=== PATIENT | female | born 1950 | race Caucasian/White ===

== ENCOUNTER → 2019-07-20 13:48 | Outpatient (CLI) | payer MEDICARE, SELFPAY ==
--- NOTE | ~2019-07-20 | MM_ITS ---
EXAMINATION: MM screening kimmy BI w heidi HISTORY: Screening mammogram TECHNIQUE: Craniocaudal and mediolateral oblique 3-D tomosynthesis images were obtained and synthetic 2-D images were generated. CAD analysis was submitted and interpreted. COMPARISON: Comparison to multiple prior studies sequentially, with oldest reviewed study dated 12/03. BREAST PARENCHYMAL COMPOSITION: There are scattered areas of fibroglandular density. FINDINGS: There is no evidence of suspicious mass, calcification, or architectural distortion to sugg est malignancy in either breast. There has been no suspicious interval change. IMPRESSION: 1. No mammographic evidence of malignancy. 2. Recommend routine screening mammography in one year. BI-RADS Category 1: Negative Reviewed, dictated and finalized at location A. AGE SUPERVISOR
== END ==
PROVIDERS: PCP Family Medicine; Visit Provider Family Medicine
DX: Z12.31 Encounter for screening mammogram for malignant neoplasm of breast (principal)
CPT/HCPCS: 77063; 77067

== ENCOUNTER → 2020-12-01 16:22 | Outpatient (CLI) | payer MEDICARE, SELFPAY ==
--- NOTE | ~2020-12-01 | MM_ITS ---
EXAMINATION: MM screening kimmy BI w heidi HISTORY: Screening TECHNIQUE: Craniocaudal and mediolateral oblique 3-D tomosynthesis images were obtained and synthetic 2-D images were generated. CAD analysis was submitted and interpreted. COMPARISON: Comparison to multiple prior studies sequentially, with oldest reviewed study dated 02/02. BREAST PARENCHYMAL COMPOSITION: There are scattered areas of fibroglandular density. FINDINGS: There is no evidence of suspicious mass, calcification, or architectural distortion to sugg est malignancy in either breast. There has been no suspicious interval change. IMPRESSION: 1. No mammographic evidence of malignancy. 2. Recommend routine screening mammography in one year. BI-RADS Category 1: Negative Reviewed, dictated and finalized at location A.
== END ==
PROVIDERS: PCP Nurse Practitioner Family; Visit Provider Nurse Practitioner Family
DX: Z12.31 Encounter for screening mammogram for malignant neoplasm of breast (principal)
CPT/HCPCS: 77063; 77067

== ENCOUNTER 2021-05-02 14:55 | Outpatient (CLI) | payer MEDICARE, SELFPAY ==
--- NOTE | ~2021-05-02 | CT_ITS ---
EXAMINATION: CT abdomen pelvis wo con EXAM DATE: 05/02/2021 15:39 INDICATION: Right flank pain. Symptoms 2 weeks. TECHNIQUE: Spiral CT of the abdomen and pelvis was performed without contrast. Axial, coronal and sag ittal images were reviewed. The dose-length product (DLP) for this examination was 1039.43 mGy-cm. The exposure was tailored according to patient size (auto mA exposure control), and iterative reconst ruction (ASIR) was used as additional dose reduction technique. There is no prior study for comparis on. FINDINGS: There is 12 mm stone in the lower pole of the left kidney, additional punctate left nephrol ithiasis. No right nephrolithiasis. No hydronephrosis. The uterus is anteverted and morphologically normal. The bladder is unremarkable. The liver, spleen, adrenal glands and pancreas are unremarkab le. The gallbladder is contracted but otherwise unremarkable. There is no retroperitoneal or pelvic lymphadenopathy. There is mild scattered arteriosclerotic disease. There are scattered colonic diverticula. There is underdistention of the hepatic flexure of the colon probably causing mild prominence of colonic wall and some diverticula in the area. No definite adjac ent inflammation. The appendix is normal. The stomach and small bowel are unremarkable. There is ex pected amount of colonic stool. No free intraperitoneal gas. The heart is normal in size. There are no pericardial or pleural effusions. The lung bases are unremarkable. There are no osteoblastic or osteolytic lesions identified. IMPRESSION: 1. Scattered colonic diverticula with mildly prominent transverse colonic wall, can't exclude mild c olitis or acute uncomplicated diverticulitis. 2. Large left nephrolithiasis. No hydronephrosis. Reviewed, dictated and finalized at location A. NICAL AIDE IMPRESSION: 1. Scattered colonic diverticula with mildly prominent transverse colonic wall , can't exclude mild colitis or acute uncomplicated diverticulitis. 2. Large left nephrolithiasis. No hydronephrosis.
== END 2021-05-02 14:56 | disposition home or self-care (01) ==
LOC: ANHIMG 15:00
PROVIDERS: PCP Family Medicine; Visit Provider Nurse Practitioner Family
DX: R10.9 Unspecified abdominal pain (principal); K57.30 Diverticulosis of large intestine without perforation or abscess without bleeding
CPT/HCPCS: 74176

== ENCOUNTER 2021-06-05 07:33 | Inpatient (IN) | payer MEDICARE, SELFPAY ==
[2021-06-05] VITALS (16 sets, daily range): BP systolic 80–166; BP diastolic 45–97; PULSE 62–138; RESP 16–22; TEMP 36.3–37.3; O2SAT 91–99; BMI 47.9
--- NOTE | ~2021-06-05 | US_ITS ---
EXAMINATION: US abdomen complete EXAM DATE: 06/08/2021 11:37 INDICATION: Thrombocytopenia. Check for hepatosplenomegaly. TECHNIQUE: Multiple grayscale and Doppler images of the complete abdomen were obtained (by a technolo gist who performed the scan) and subsequently reviewed. There is no prior study for comparison. FINDINGS: The abdominal aorta is normal in caliber. Visualized portion IVC is patent. The pancreatic head a nd body are normal in appearance. The pancreatic tail is not visualized. Mildly echogenic liver parenchyma, hepatic steatosis. There are no focal liver lesions identified. There is no evidence of intrahepatic biliary duct dilation. Portal venous flow was seen in the hepa topedal, normal direction and has normal Doppler waveform. Common bile duct measures 6 mm, which is normal. The gallbladder wall is normal in thickness, with ex pected amount of distention. No sonographic evidence of pericholecystic fluid. There is no cholelit hiases. Technologist performing exam reports patient did not demonstrate sonographic Rock's sign. Please note that this sign is less reliable in patients who have received pain medication. Right kidney: There is normal contour and echogenicity. It measures 10.7 x 5.0 x 5.8 centimeters. There are no focal renal lesions identified. There is no hydronephrosis. Left kidney: There is normal contour and echogenicity. It measures 10.3 x 5.7 x 5.1 centimeters. Th ere is 1.4 cm cyst. There is no hydronephrosis. The spleen measures 9.2 x 3.8 x 4.2 centimeters and is morphologically normal. IMPRESSION: 1. Normal liver, spleen size. 2. Hepatic steatosis. Reviewed, dictated and finalized at location A. CARE ADMINISTRATOR
--- NOTE | ~2021-06-05 | CT_ITS ---
EXAMINATION: CT facial & cervical spine wo DATE: 06/05/2021 08:11 INDICATION: Head injury. TECHNIQUE: Computed tomography (CT) of the maxillofacial region and cervical spine was performed with out intravenous contrast. Automated exposure control and iterative reconstruction technique were empl oyed. The dose-length product was 425.10 mGy-cm. COMPARISON: None FINDINGS: MAXILLOFACIAL CT: There are fractures of the nasal bones, right nasal process of maxilla, and nasal septum. There is mu cosal thickening and fluid in the paranasal sinuses and nasal cavity. There are likely changes of ocu lar lens replacement surgeries. There is frontal scalp soft tissue swelling. There is soft tissue swe lling of the nose. CERVICAL SPINE CT: There is 12 degrees levoscoliosis of cervical spine. Vertebral body heights are normal. There is mild ly decreased disc height at C4-C5, C5-C6, and C6-C7. 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 The following disc levels are specifically discussed: C2-C3: There is mild bilateral uncovertebral joint osteoarthritis. There is moderate right and mild l eft facet joint osteoarthritis. There is no neural foraminal stenosis. There is no central canal sten osis. C3-C4: There is mild bilateral uncovertebral joint osteoarthritis. There is severe right and moderate left facet joint osteoarthritis. There is no neural foraminal stenosis. There is no central canal st enosis. C4-C5: There is mild bilateral uncovertebral joint osteoarthritis. There is severe bilateral facet marcus int osteoarthritis. There is no neural foraminal stenosis. There is no central canal stenosis. C5-C6: There is mild bilateral uncovertebral joint osteoarthritis. There is severe right and moderate left facet joint osteoarthritis. There is no neural foraminal stenosis. There is mild central canal stenosis. C6-C7: There is mild bilateral uncovertebral joint osteoarthritis. There is severe bilateral facet marcus int osteoarthritis. There is no neural foraminal stenosis. There is mild central canal stenosis. C7-T1: There is no uncovertebral joint osteoarthritis. There is severe bilateral facet joint osteoart hritis. There is mild bilateral neural foraminal stenosis. There is mild central canal stenosis. IMPRESSION: 1. Acute fractures of the nasal bones, right nasal process of maxilla, and nasal septum. 2. Moderate cervical spondylosis. 3. Cervical levoscoliosis. Reviewed, dictated and finalized at location D. ERY RN IMPRESSION: 1. Acute fractures of the nasal bones, right nasal process of maxilla, and nasa l septum. 2. Moderate cervical spondylosis. 3. Cervical levoscoliosis.
--- NOTE | ~2021-06-05 | CT_ITS ---
EXAMINATION: CT brain wo con DATE: 06/05/2021 08:11 INDICATION: Head injury. TECHNIQUE: Computed tomography (CT) of the head was performed without intravenous contrast. The mA wa s adjusted according to patient size. Iterative reconstruction technique was employed. The dose-lengt h product was 681.00 mGy-cm. COMPARISON: None FINDINGS: There is a small old infarct in left frontal lobe. There is no intracranial hemorrhage, acu te infarction, or abnormal intracranial mass lesion. The ventricles are normal in size. There are fra ctures of the nasal bones and nasal septum. There is mucosal thickening and fluid in the paranasal si nuses and nasal cavity. There is soft tissue swelling of the nose. There are likely changes of ocular lens replacement surgeries. The mastoid air cells are normal. IMPRESSION: 1. 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 2. Acute fractures involving the nasal bones and nasal septum. Reviewed, dictated and finalized at location D. ING INFORMATION SYSTEMS COORDINATOR
--- NOTE | 2021-06-05 07:50 | ED.FALL ---
HPI - Fall General Chief Complaint: Fall Stated Complaint: fall Time Seen by Provider: 06/05/21 07:48 Source: patient Mode of arrival: EMS Limitations: no limitations History of Present Illness HPI Narrative: Patient is a 71-year-old female complaining of facial pain, nosebleeding after she fell face first when she tripped while walking her dog. Patient denies any loss of consciousness. Patient denies any head, neck, chest, back, abdomen, pelvis, hip or any extremity pain/injury. Patient states that she was able to stand up and ambulate after the fall. Patient states that she has a history of low platelets and last time it was checked it was 12 , currently being worked up by her senior quantity surveyor oncologist regarding the cause of her thrombocytopenia. Related Data Home Medications Medication Instructions Recorded Confirmed Fish Oil 06/05/21 06/05/21 calcium phos,dibas-vitamin D3 tablet PO 06/05/21 [Vitamin D (with calcium)] multivitamin with minerals 1 tablet PO DAILY 06/05/21 06/05/21 [Hair,Skin and Nails] vitamin B complex [Vitamin B-100] 1 tablet PO DAILY 06/05/21 06/05/21 Allergies Allergy/AdvReac Type Severity Reaction Status Date / Time No Known Allergies Allergy Unknown NONE Verified 06/05/21 07:42 Review of Systems Review of Systems: All systems reviewed & are unremarkable except as noted in HPI and below Constitutional: Constitutional: Denies body ache(s), Denies chills, Denies excessive sweating, Denies fatigue, Denies fever(s), Denies headache(s), Denies lethargy, Denies malaise, Denies weakness and Denies weight loss Eyes: Eyes: Denies blurry vision, Denies change in vision and Denies loss of vision ENT: Denies dizziness, Denies ear discharge, Denies headache(s), Denies lip swelling, Denies nasal congestion, Denies neck pain, Denies throat swelling and Denies tongue swelling Cardiovascular: Cardiovascular: Denies chest pain, Denies chest pain at rest, Denies chest pain with activity, Denies diaphoresis, Denies rapid heart rate, Denies edema, Denies irregular heart rhythm, Denies lightheadedness, Denies palpitations, Denies dyspnea and Denies dyspnea on exertion Respiratory: Respiratory: Denies chest congestion, Denies cough, Denies hemoptysis, Denies dyspnea and Denies dyspnea on exertion Gastrointestinal: Gastrointestinal: Denies abdominal pain, Denies melena, Denies hematochezia, Denies diarrhea, Denies nausea, Denies vomiting and Denies hematemesis Musculoskeletal: Musculoskeletal: Denies abnormal gait, Denies deformity, Denies joint swelling, Denies limited range of motion, Denies neck pain and Denies numbness Neurologic: Denies Abnormal speech present, Denies abnormal gait, Denies confusion, Denies dizziness, Denies headache(s), Denies focal weakness, Denies loss of vision, Denies numbness, Denies Other visual disturbances, Denies Sensory deficit (Neuro) and Denies weakness Psychiatric: Psychiatric: Denies confusion, Denies depression, Denies auditory hallucinations, Denies homicidal ideation and Denies suicidal ideation Endocrine: Endocrine: Denies cold intolerance, Denies excessive sweating, Denies fatigue, Denies heat intolerance and Denies palpitations Hematologic/Lymphatic: Hematologic/Lymphatic: Denies easy bleeding and Denies easy bruising Allergic/Immunologic: Allergic/Immunologic: Denies lip swelling, Denies throat swelling and Denies tongue swelling PMFSH Past Medical History Medical History (Updated 06/05/21 @ 11:19 by Alexey Cabrales MD) Hyperlipidemia Left ear impacted cerumen Skin cancer Vitamin D deficiency Family History Family History Sibling Diabetes mellitus Cerebrovascular accident Father Heart disease Social History Social History Smoking status: Never smoker Second hand tobacco smoke exposure: No Alcohol intake: never Substance use: never Subs
[2021-06-05 07:55] LABS: Basophils Percent Auto 0.4 % (0.2-1.2); Eosinophils Absolute Auto 0.2 K/mm3 (0-0.3); Eosinophils Percent Auto 2.2 % (0-4.4); Hematocrit 42.5 % (37.0-47.0); Hemoglobin 13.6 g/dL (12.0-15.0); Immature Granulocyte Absolute 0.02 K/mm3 (0.00-0.031); Immature Granulocyte Percent A 0.3 % (0-0.5); Immature Platelet Fraction Pct 21.8 % (0.9-11.2); Lymphocytes Absolute Auto 1.31 K/mm3 (0.9-3.2); Lymphocytes Percent Auto 16.6 % (18.3-44.2); Mean Corpuscular Hemoglobin 28.9 pg (26-34); Mean Corpuscular Volume 90.2 fl (80-100); Mean Platelet Volume 13.1 fl (7.4-10.4); Monocytes Absolute Auto 0.4 K/mm3 (0.1-0.6); Monocytes Percent Auto 5.6 % (2.6-8.5); Neutrophils Absolute Auto 5.9 K/mm3 (1.3-6.7); Neutrophils Percent Auto 74.9 % (45.5-73.1); Red Blood Count 4.71 M/mm3 (4.2-5.4); Red Cell Distribution Width 13.5 % (11.5-14.5); White Blood Count 7.9 K/mm3 (4.5-10.0)
[2021-06-05 08:03] LABS: Alanine Aminotransferase 25 U/L (4-35); Albumin Level 4.3 g/dL (3.5-5.1); Alkaline Phosphatase 70 U/L (38-126); Anion Gap 10 mmol/L (8-16); Aspartate Amino Transferase 31 U/L (14-36); Bilirubin,Total 0.5 mg/dL (0.2-1.3); Blood Urea Nitrogen 18 mg/dL (7-17); Calcium 9.3 mg/dL (8.4-10.2); Carbon Dioxide 27 mmol/L (22-30); Chloride 101 mmol/L (98-107); Estimated CRCL calculation 57 ml/min; Estimated Glomerular Filt Rate 55; Glucose 154 mg/dL (65-110); Potassium 4.3 mmol/L (3.4-5.0); Sodium 138 mmol/L (137-145)
[2021-06-05 08:12] LABS: INR 0.9; Partial Thromboplastin Time 27.9 SECONDS (22.3-36.8); Prothrombin Time 12.3 Seconds (11.1-14.7)
--- NOTE | 2021-06-05 08:13 | PC.NURSE ---
PT called out and stated Im hot . upon arrival to room patient noted to have copious amounts of blood coming from mouth. Suctioned mouth with approx 100 ml in canister. pt noted to have heart rate of 55 and diaphoretic., ERP called to bedside. PT to ct with this RN and monitor, tolerated well. IVF started pt in no distress at present.
[2021-06-05 08:15] LABS: Platelet Count Result 18 k/mm3 (150-375)
[2021-06-05] MEDS: TETANUS,DIPHTHERIA,AC PERTUSSIS ADULT (0.5 ML) BOOSTRIX IM (08:18)
[2021-06-05] MEDS: SODIUM CHLORIDE 0.9% IV 1,000 ML 999 ML IV CONT ×2 (08:19→10:54)
--- NOTE | 2021-06-05 08:24 | PC.NURSE ---
Dr. Dangelo (ENT) at bedside examining pt at this time
[2021-06-05] MEDS: HYDROmorphone HCL INJ (*CRX) 1 MG/ML SYR 0.5 MG IV PUSH (08:31)
[2021-06-05] MEDS: ONDANSETRON INJ 4 MG/2 ML VIAL IV PUSH (08:31)
--- NOTE | 2021-06-05 08:32 | P.CONS_ITS ---
Assessment and Plan Assessment and plan (1) Right-sided epistaxis: Code(s): R04.0 - Epistaxis Status: Acute Assessment and Plan: Keep rhino rocket in place. Follow up in 24 hours for further evaluation. Inflate rr slightly if epistaxis resumes. HPI Data of Consult Date/Time: 06/05/21 08:32 Primary Care Provider: Ottoniel Hopkins, Consult Narrative Narrative: Cathy Torres is a 71 year old female s/p fall this am. ENT consulted for management. Pt with a history of thrombocytopenia, currently being worked up. COUNT INCLUDES THE [facility] Past Medical History Medical History (Updated 06/05/21 @ 08:34 by Chris Dangelo MD) Hyperlipidemia Left ear impacted cerumen Skin cancer Vitamin D deficiency Family History Family History Sibling Diabetes mellitus Cerebrovascular accident Father Heart disease Social History Social History Smoking status: Never smoker Second hand tobacco smoke exposure: No Alcohol intake: never Substance use: never Substance use type: does not use Gender identity (if verbalized by the patient): Female Spiritual care concerns: Yes Agree to blood products: Yes Meds Home Medications and Allergies Home Medications Medication Instructions Recorded Confirmed Type Fish Oil 06/05/21 06/05/21 History calcium phos,dibas-vitamin D3 tablet PO 06/05/21 History [Vitamin D (with calcium)] multivitamin with minerals 1 tablet PO DAILY 06/05/21 06/05/21 History [Hair,Skin and Nails] vitamin B complex [Vitamin B-100] 1 tablet PO DAILY 06/05/21 06/05/21 History Allergies Allergy/AdvReac Type Severity Reaction Status Date / Time No Known Allergies Allergy Unknown NONE Verified 06/05/21 07:42 Vital Signs Vital Signs - 24 hr 06/05/21 07:33 06/05/21 08:14 Temperature 36.3 C L Pulse Rate 87 138 H Respiratory Rate 18 22 H Blood Pressure 166/97 H 122/75 Pulse Oximetry 99 96 Exam HENMT: Other: Dorsum nasal edema, likely fracture, right epistaxis, clot suctioned, rhino rocket inserted. Results Labs CBC & Chem 7: 06/05/21 07:48 06/05/21 07:48 Labs: Short CBC 06/05/21 Range/Units 07:48 WBC 7.9 (4.5-10.0) K/mm3 Hgb 13.6 (12.0-15.0) g/dL Hct 42.5 (37.0-47.0) % Plt Count 18 L* (150-375) k/mm3 BMP 06/05/21 07:48 Sodium 138 Potassium 4.3 Chloride 101 Carbon Dioxide 27 BUN 18 H Creatinine 1.00 Glucose 154 H Calcium 9.3 Liver Function 06/05/21 Range/Units 07:48 Total Bilirubin 0.5 (0.2-1.3) mg/dL AST 31 (14-36) U/L ALT 25 (4-35) U/L Alkaline Phosphatase 70 (38-126) U/L Albumin 4.3 (3.5-5.1) g/dL
--- NOTE | 2021-06-05 08:32 | WPDPROCEDUR ---
Procedures Epistaxis Control Nostril: right Direct inspection: unable to visualize Clots removed by: suction Cautery used: none Device inserted: hemostatic balloon Device size: 7 Patient tolerated procedure: well
--- NOTE | 2021-06-05 10:35 | PC.NURSE ---
This RN noticed pt BP low on the monitor. 86/52. Came to room and rechecked. 71/48. VORB for a liter of fluid and manual BP. 80/51 manually
--- NOTE | 2021-06-05 12:12 | PM.IMHP ---
H&P: HPI History of Present Illness Date/Time: 06/05/21 12:12 Chief Complaint: Nose bleed Narrative: Date of service: 06/05/2021 Cathy Torres is a 71-year-old female with a history of hyperlipidemia, skin cancer, nephrolithiasis, diverticulitis, and thrombocytopenia who presented to the emergency department via EMS earlier this morning after a fall. She was outside walking her dog when her shoe got caught on some gravel and she fell directly on to her face. She was not able to put her arms out to try to catch herself. She denies any precipitating symptoms prior to falling. She was able to shout for help and a neighbor came out and called EMS. She was on the ground about 10 minutes before she was assisted by EMS. She had immediate bleeding from her nose and states there was ?a lot? of blood on the gravel. Upon arrival to the ER, her vital signs were stable, she was afebrile, hemoglobin and hematocrit were within normal limits, platelet count [id number], additional laboratory workup unremarkable. She was evaluated by ENT in the ED and the nose was packed. At this time, she complains of pain at the bridge of her nose that she rates as 5/10. She also complains of a frontal headache. She has bruising around her eyes and they are swollen but she has no trouble with her vision. Denies double vision or blurred vision. She is having very infrequent small drips of blood from the nose. She had 2 episodes of emesis which she attributes to swallowing blood from her nose. She was not able to visualize emesis and is unsure if it was bloody. She denies dizziness or lightheadedness. Her , [employer], is present at the bedside. She is being admitted for observation to the hospitalist service. Supervising physician for this history and physical is Dr. Edy Jimenez. Review of Systems Review of Systems: All systems reviewed with pertinent positives and negatives as per HPI. Additionally, patient denies shortness of breath, cough, chest pain. No palpitations. No nausea. Denies any spontaneous bleeding, though notes that on [place] she cut her finger when cooking and felt that it blood for longer than she would have expected. She denies blood in her stools. She has been having regular bowel movements. Denies hematuria, malodorous urine, urgency or frequency. She typically ambulates independently and is pretty active. She denies any other recent falls. She recently completed treatment for diverticulitis. She denies abdominal pain, fever, chills, or diarrhea. She has a kidney stone for which she is scheduled for lithotripsy that has been postponed due to COVID restrictions. [facility] Past Medical History Medical History (Updated 06/05/21 @ 16:13 by Veda Danielle PA-C) Diverticulitis Hyperlipidemia Left ear impacted cerumen Nephrolithiasis Skin cancer Thrombocytopenia Vitamin D deficiency Surgical History Surgical History (Updated 06/05/21 @ 15:57 by Veda Danielle PA-C) History of cataract surgery History of local excision of skin lesion Family History Family History (Updated 06/05/21 @ 15:58 by Veda Danielle PA-C) Sibling Diabetes mellitus Cerebrovascular accident Father Heart disease Mother Liver cancer Social History Social History (Updated 06/05/21 @ 15:59 by Veda Danielle PA-C) Social History: Patient lives at home with her has. She is independent in her daily activities. Her primary care provider is Judi Herrera NP. She does he needs her , Asif, as her surrogate decision maker and she would like to be a full code. Smoking status: Never smoker Second hand tobacco smoke exposure: No Alcohol use details: 6 drinks/year Substance use: never Substance use type: does not use Gender identity (if verbalized by the patient): Female Spiritual care concerns: Yes Agree to blood products: Yes Meds Home Medications and Allergies Home Medications Medic
[2021-06-05] MEDS: LACTATED RINGERS 1,000 ML 125 ML IV CONT (12:31)
[2021-06-05 12:42] LABS: Hematocrit 31.2 % (37.0-47.0); Hemoglobin 9.9 g/dL (12.0-15.0)
[2021-06-05 12:54] LABS: EDCOVIDSCREEN Negative (Negative)
--- NOTE | 2021-06-05 16:45 | PC.NURSE ---
This patient, Cathy Torres, was admitted to [address] [place] [address] Room 331-02 at 1455. Patient/family oriented to hospital policies and general routines including ID bracelet, bed and alarms, visiting hours, pain management, procedures, bathroom and other care routines, personal items, smoking policy, room service/diet, and visiting hours. Information on how to activate the Rapid Response Team has been discussed. Patient/Family are encouraged to report perceived risks to care and to ask questions if they do not understand what they are told or what they should do.
--- NOTE | 2021-06-05 16:46 | PC.NURSE ---
pt states recent medical hx of low platelets.
[2021-06-05] MEDS: SODIUM CHLORIDE 0.9% IV 250 ML 30 ML IV CONT (17:15)
[2021-06-05 19:04] LABS: Hemoglobin 10.2 g/dL (12.0-15.0)
[2021-06-06] VITALS (9 sets, daily range): BP systolic 110–147; BP diastolic 61–72; PULSE 74–95; RESP 14–20; TEMP 36.8–37.4; O2SAT 93–94
[2021-06-06 01:08] LABS: Hematocrit 30.4 % (37.0-47.0); Hemoglobin 9.8 g/dL (12.0-15.0)
[2021-06-06 07:44] LABS: Basophils Percent Auto 0.1 % (0.2-1.2); Eosinophils Percent Auto 0.5 % (0-4.4); Immature Granulocyte Absolute 0.04 K/mm3 (0.00-0.031); Immature Granulocyte Percent A 0.5 % (0-0.5); Lymphocytes Absolute Auto 1.03 K/mm3 (0.9-3.2); Lymphocytes Percent Auto 13.1 % (18.3-44.2); Mean Corpuscular HGB Conc 32.1 g/dl (32-36); Mean Corpuscular Hemoglobin 28.8 pg (26-34); Mean Corpuscular Volume 89.5 fl (80-100); Mean Platelet Volume 10.3 fl (7.4-10.4); Monocytes Absolute Auto 0.4 K/mm3 (0.1-0.6); Monocytes Percent Auto 5.1 % (2.6-8.5); Neutrophils Absolute Auto 6.3 K/mm3 (1.3-6.7); Neutrophils Percent Auto 80.7 % (45.5-73.1); Platelet Count Result 38 k/mm3 (150-375); Red Blood Count 3.13 M/mm3 (4.2-5.4); Red Cell Distribution Width 13.7 % (11.5-14.5); White Blood Count 7.9 K/mm3 (4.5-10.0)
[2021-06-06 08:01] LABS: Anion Gap 8 mmol/L (8-16); Blood Urea Nitrogen 14 mg/dL (7-17); Calcium 8.7 mg/dL (8.4-10.2); Carbon Dioxide 28 mmol/L (22-30); Chloride 101 mmol/L (98-107); Estimated CRCL calculation 57 ml/min; Estimated Glomerular Filt Rate 55; Glucose 120 mg/dL (65-110); Potassium 4.2 mmol/L (3.4-5.0); Sodium 137 mmol/L (137-145)
--- NOTE | 2021-06-06 08:09 | PM.PNGS ---
Progress Note: A&P Assessment and Plan (1) Closed fracture nasal bone: Qualifiers: Encounter type: initial encounter Qualified Code(s): S02.2XXA - Fracture of nasal bones, initial encounter for closed fracture Code(s): S02.2XXA - Fracture of nasal bones, initial encounter for closed fracture Status: Acute Assessment and Plan: rhino rocket inflated. Would removed tape over dorsum of nose prior to discharge if patient tolerates. Keep rhino rocket inflated. Please have patient follow up this week if possible with Dr. Clayton [phone], as I am out of town. The left nasal passage will seem like it is bleeding but it is likely clot dissolving as it is full of clot now. Head of bed elevated his preferred. No strenuous activity for at least 1 week. If the patient will tolerate I would recommend nasal saline sprays in the left nasal passage to help break down the clot. Gentle nose blowing will be okay. (2) Acute anterior epistaxis: Code(s): R04.0 - Epistaxis Status: Acute (3) Right-sided epistaxis: Code(s): R04.0 - Epistaxis Status: Acute Subjective Subjective Date/Time Seen: 06/06/21 08:09 Patient reports some pain nasally scant blood from the left nasal passage. Hemoglobin stable this a.m.. Patient denies bleeding down the back of her throat. Rhino rocket lightly inflated still in good placement on the right nasal passage. Exam HENMT: Other: Clot left nasal passage rhino rocket right nasal passage lightly inflated no bleeding in the posterior oropharynx nasal dorsum edematous Objective Data Vital Signs Vital Signs: Vital Signs - 24 hr 06/05/21 08:14 06/05/21 08:52 06/05/21 09:08 Temperature Pulse Rate 138 H 65 68 Respiratory Rate 22 H 18 18 Blood Pressure 122/75 106/60 116/67 Pulse Oximetry 96 96 94 06/05/21 10:36 06/05/21 11:20 06/05/21 12:32 Temperature Pulse Rate 62 71 Respiratory Rate 16 18 Blood Pressure 80/51 L 140/71 112/61 Pulse Oximetry 99 96 06/05/21 12:34 06/05/21 12:37 06/05/21 13:43 Temperature Pulse Rate 73 84 78 Respiratory Rate 18 Blood Pressure 120/63 94/58 L 100/56 L Pulse Oximetry 97 06/05/21 14:45 06/05/21 20:41 06/05/21 20:49 Temperature 37.3 C 37.3 C Pulse Rate 78 77 77 Respiratory Rate 18 16 16 Blood Pressure 98/45 L 121/60 121/60 Pulse Oximetry 99 93 91 06/05/21 21:04 06/05/21 22:00 06/05/21 23:30 Temperature 36.8 C 36.9 C 36.9 C Pulse Rate 72 75 75 Respiratory Rate 16 20 20 Blood Pressure 116/53 L 118/53 L 118/53 L Pulse Oximetry 92 93 93 06/06/21 01:25 06/06/21 01:42 06/06/21 01:48 Temperature 37.2 C 36.8 C 37.4 C Pulse Rate 74 79 77 Respiratory Rate 14 14 16 Blood Pressure 120/64 120/62 134/64 Pulse Oximetry 93 93 93 06/06/21 06:00 Temperature 37.0 C Pulse Rate 82 Respiratory Rate 18 Blood Pressure 125/62 Pulse Oximetry 94 Intake/Output Intake/Output: Intake & Output 06/03/21 06/04/21 06/05/21 06/06/21 23:59 23:59 23:59 23:59 Intake Total 3240 1719 Output Total 0 Balance 3240 1719 Meds/Results Medications: Active Medications Generic Name Dose Route Start Last Admin Trade Name Freq PRN Reason Stop Dose Admin Acetaminophen 650 mg 06/05/21 16:16 Acetaminophen 325 Mg Tablet PO Q4H PRN Pain 1-3 Hydrocodone Bitart/Acetaminophen 1 tab 06/05/21 16:16 Hydrocodone/Acetaminophen (*Crx) 5-325 Mg Tablet PO Q6H PRN Pain Rated 4-6 Docusate Sodium 100 mg 06/05/21 16:17 Docusate Sodium 100 Mg Capsule PO Q12H PRN Constipation Hydromorphone HCl 0.5 mg 06/05/21 11:27 Hydromorphone Hcl Inj (*Crx) 1 Mg/Ml Syr IV PUSH Q4H PRN Pain Rated 7-10 Lactated Ringer's 1,000 mls @ 100 mls/hr 06/05/21 11:30 06/05/21 20:51 Lr - Lactated Ringers Iv IV CONT Infused .Q10H VALDO Infusion Ondansetron HCl 4 mg 06/05/21 11:27 Ondansetron Inj 4 Mg/2 Ml Vial IV PUSH Q4H PRN Nausea
[2021-06-06] MEDS: LACTATED RINGERS 1,000 ML 100 ML IV CONT (09:20)
[2021-06-06 11:48] LABS: Hematocrit 30.1 % (37.0-47.0); Hemoglobin 9.7 g/dL (12.0-15.0)
--- NOTE | 2021-06-06 12:34 | PM.IMPN ---
Progress Note: A&P Assessment and Plan (1) Fall in elderly patient: Code(s): R29.6 - Repeated falls Status: Acute Assessment and Plan: Patient had a mechanical fall while walking her dog. Head CT with no acute intracranial findings including intracranial hemorrhage, acute infarct, or mass lesion Sustained nasal fracture. See below. Patient denies any further injuries Fall precautions implemented (2) Acute anterior epistaxis: Code(s): R04.0 - Epistaxis Status: Acute Assessment and Plan: Secondary to acute nasal fracture Appreciate ENT consultation Rhino rocket placed by ENT Follow-up in the office on discharge Hemoglobin stable on presentation at 13.6.-->9.9-->9 today Transfuse to maintain Hgb 7.0 or above Monitor (3) Closed fracture nasal bone: Qualifiers: Encounter type: initial encounter Qualified Code(s): S02.2XXA - Fracture of nasal bones, initial encounter for closed fracture Code(s): S02.2XXA - Fracture of nasal bones, initial encounter for closed fracture Status: Acute Assessment and Plan: Secondary to fall as above CT showed acute fracture of the nasal bones, right nasal process of maxilla, and nasal septum ENT follow-up as above Analgesics available as needed for pain (4) Thrombocytopenia: Code(s): D69.6 - Thrombocytopenia, unspecified Status: Acute Assessment and Plan: Incidentally discovered on outpatient labs 2 weeks ago Patient followed up with PCP last week and was referred to Hematology She has not been contacted for appointment Platelet count is 18-->38 today Discussed case with interior design consultant Dr. 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 and will trial steroids Direct platelet bound immunoglobulin per hematology recommendations Continue to monitor CBC with differential (5) Head injury: Qualifiers: Encounter type: initial encounter Qualified Code(s): S09.90XA - Unspecified injury of head, initial encounter Code(s): S09.90XA - Unspecified injury of head, initial encounter Status: Acute Assessment and Plan: Secondary to fall CT scan with no acute findings In light of her thrombocytopenia, there is concern for delayed subdural hemorrhage Monitor mental status closely (6) Hypotension: Qualifiers: Hypotension type: unspecified hypotension type Qualified Code(s): I95.9 - Hypotension, unspecified Code(s): I95.9 - Hypotension, unspecified Status: Acute Assessment and Plan: Resolved BP decline to 80/51 06/05 S/p 1 L IV fluids and BP improved Noted to be orthostatic with 26 point drop in SBP from sitting to standing. 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 Follow up with PCP Subjective Date/time seen: 06/06/21 12:34 Interval history: Pt seen and evaluated; labs, vs, diagnostic results reviewed; PLT improving; pain controlled; no new complaints; will add PT eval Review of Systems Review of Systems: All systems reviewed & are unremarkable except as noted in HPI and below Exam Narrative: GEN: NAD Neuro: awake, alert and oriented x4, speech clear, no focal neuro deficits noted HEENMT: Nose is swollen and packed with dried blood surrounding the nares. Bilateral periorbital ecchymoses. Normal oropharynx. Moist oral mucosa. Respiratory: clear to auscultation bilater
[2021-06-07] VITALS (8 sets, daily range): BP systolic 130–156; BP diastolic 67–80; PULSE 72–82; RESP 16–18; TEMP 36.1–37.1; O2SAT 93–99
[2021-06-07 06:49] LABS: Hematocrit 30.4 % (37.0-47.0); Hemoglobin 9.9 g/dL (12.0-15.0); Immature Platelet Fraction Pct 20.9 % (0.9-11.2); Mean Corpuscular HGB Conc 32.6 g/dl (32-36); Mean Corpuscular Hemoglobin 29.6 pg (26-34); Mean Corpuscular Volume 90.7 fl (80-100); Mean Platelet Volume 12.8 fl (7.4-10.4); Red Blood Count 3.35 M/mm3 (4.2-5.4); Red Cell Distribution Width 13.7 % (11.5-14.5); White Blood Count 8.2 K/mm3 (4.5-10.0)
[2021-06-07 07:03] LABS: Anion Gap 6 mmol/L (8-16); Blood Urea Nitrogen 13 mg/dL (7-17); Calcium 8.8 mg/dL (8.4-10.2); Carbon Dioxide 29 mmol/L (22-30); Chloride 102 mmol/L (98-107); Estimated CRCL calculation 63 ml/min; Estimated Glomerular Filt Rate > 60; Glucose 124 mg/dL (65-110); Platelet Count Result 11 k/mm3 (150-375); Potassium 4.2 mmol/L (3.4-5.0); Sodium 137 mmol/L (137-145)
--- NOTE | 2021-06-07 12:32 | PDONCCN ---
HPI - Date of Consult Date/Time: 06/07/21 12:32 Requesting Physician: Chantel Lunsford NP Primary Care Provider: Ottoniel Hopkins, MD - Consult Narrative Reason for consult: Thrombocytopenia Narrative: Cathy Torres is a 71 year old female with history of hyperlipidemia, nephrolithiasis, diverticulitis and skin cancer involving the right lower extremity status is 2nd 5 years ago. She was recently diagnosed to have thrombocytopenia and was going to see the baker paint. She fell 2 days ago and landed on her face with resultant bruising on the face. She came [place] [address]. He received platelet transfusion with platelet improvement to 38,000. Today platelet drop down to get 11,000. She has no other bleeding complain other than facial bruising status post fall. She denies any fevers and chills. No chest pain and shortness of breath. She denies any previous history of bone marrow disorder and liver disease. Denies any other new complaints. Review of Systems - Review of Systems All systems reviewed & are unremarkable except as noted in HPI and bel - Neurologic Denies abnormal speech, Denies abnormal gait, Denies confusion, Denies headache(s), Denies focal weakness, Denies loss of vision, Denies numbness, Denies other visual disturbances, Denies sensory deficit, Denies weakness PMFSH Medical History: Medical History (Last Updated 06/05/21 @ 15:57 by Veda Danielle PA-C) Diverticulitis Hyperlipidemia Left ear impacted cerumen Nephrolithiasis Skin cancer Thrombocytopenia Vitamin D deficiency Surgical History: Surgical History (Last Updated 06/05/21 @ 15:57 by Veda Danielle PA-C) History of cataract surgery History of local excision of skin lesion Family History: Family History (Last Updated 06/05/21 @ 15:58 by Veda Danielle PA-C) Sibling Diabetes mellitus Cerebrovascular accident Father Heart disease Mother Liver cancer - Social History Social History: Social History (Last Updated 06/05/21 @ 15:59 by Veda Danielle PA-C) Gender Identity: Gender identity (if verbalized by the patient): Female Alcohol Use: Alcohol intake: never Alcohol use details: 6 drinks/year Substance Use: Substance use: never Substance use type: does not use Others: Spiritual care concerns: No Agree to blood products: Yes Smoking Status: Smoking status: Never smoker Second hand tobacco smoke exposure: No Meds Home Medications Medication Instructions Recorded Confirmed Type Fish Oil 1 caplet BYMOUTH DAILY 06/05/21 06/05/21 History calcium phos,dibas-vitamin D3 1 tablet PO 06/05/21 History [Vitamin D (with calcium)] multivitamin with minerals 1 tablet PO EVERY OTHER DAY 06/05/21 06/05/21 History [Hair,Skin and Nails] vitamin B complex [Vitamin B-100] 1 tablet PO DAILY 06/05/21 06/05/21 History Allergies Allergy/AdvReac Type Severity Reaction Status Date / Time No Known Allergies Allergy Unknown NONE Verified 06/05/21 07:42 Results - Labs CBC & Chem 7: 06/07/21 06:20 06/07/21 06:20 Labs: Short CBC 06/07/21 Range/Units 06:20 WBC 8.2 (4.5-10.0) K/mm3 Hgb 9.9 L (12.0-15.0) g/dL Hct 30.4 L (37.0-47.0) % Plt Count 11 L* D (150-375) k/mm3 BMP 06/07/21 06:20 Sodium 137 Potassium 4.2 Chloride 102 Carbon Dioxide 29 BUN 13 Creatinine 0.90 Glucose 124 H Calcium 8.8 Assessment and Plan - Additional Plan Thrombocytopenia. Patient is a pleasant 71-year-old obese female who has been in good health except history of a skin cancer removed from the right lower extremity along with hyperlipidemia and nephrolithiasis. Patient with recently diagnosed with thrombocytopenia. She denies any fevers and chills. She has no previous bone marrow disorder and liver disorder history. This is likely secondary to ITP given the drop in t
--- NOTE | 2021-06-07 13:06 | P.PNIM_ITS ---
Progress Note: A&P Assessment and Plan (1) Fall in elderly patient: Code(s): R29.6 - Repeated falls Status: Acute Assessment and Plan: Patient had a mechanical fall while walking her dog. Stated she landed on her face. * Head CT with no acute intracranial findings including intracranial hemorrhage, acute infarct, or mass lesion * Sustained nasal fracture. See below. * Patient denies any further injuries * Fall precautions implemented (2) Acute anterior epistaxis: Code(s): R04.0 - Epistaxis Status: Acute Assessment and Plan: Secondary to acute nasal fracture Appreciate ENT consultation Rhino rocket placed by ENT Follow-up in the office on discharge THIS WEEK. Hemoglobin stable on presentation at 13.6.-->9.9 today Transfuse to maintain Hgb 7.0 or above Platelets 11 today. Transfuse to keep above 10 or if bleeding restarts. (3) Closed fracture nasal bone: Qualifiers: Encounter type: initial encounter Qualified Code(s): S02.2XXA - Fracture of nasal bones, initial encounter for closed fracture Code(s): S02.2XXA - Fracture of nasal bones, initial encounter for closed fracture Status: Acute Assessment and Plan: Secondary to fall as above CT showed acute fracture of the nasal bones, right nasal process of maxilla, and nasal septum ENT follow-up as above Analgesics available as needed for pain Secondary to fall as above CT showed acute fracture of the nasal bones, right nasal process of maxilla, and nasal septum ENT follow-up as above Analgesics available as needed for pain (4) Thrombocytopenia: Code(s): D69.6 - Thrombocytopenia, unspecified Status: Acute Assessment and Plan: Incidentally discovered on outpatient labs 2 weeks ago Patient followed up with PCP last week and was referred to Hematology, but patient has not been contacted for appointment She has not been contacted for appointment Platelet count is 18 Discussed case with electron tube assembler Dr. Shaw Squires recommended transfusion of 1 unit platelets , improved to 38. Platelets 11 today. Transfuse to keep above 10 or if bleeding restarts. Since platelets declidne following transfusion, likely to be ITP and will trial steroids Continue to monitor CBCs with differential Consulted Wildlife Control Agent Dr. Squires today He started her on Solu-Medrol 125 mg q.8 hours for possible ITP treatment. He is checking Platelet antibody and spleen ultrasound. He may add IV IgG if necessary and will transfuse platelet if platelet count is less than 10,000 or if she becomes symptomatic. (5) Head injury: Qualifiers: Encounter type: initial encounter Qualified Code(s): S09.90XA - Unspecified injury of head, initial encounter Code(s): S09.90XA - Unspecified injury of head, initial encounter Status: Acute Assessment and Plan: Secondary to fall CT scan with no acute findings In light of her thrombocytopenia, there is concern for delayed subdural hemorrhage, Consider Head CT prior to discharge Monitor mental status closely (6) Hypotension: Qualifiers: Hypotension type: unspecified hypotension type Qualified Code(s): I95.9 - Hypotension, unspecified Code(s): I95.9 - Hypotension, unspecified Status: Acute Assessment and Plan: RESOLVED. BP decline to 80/51 on 06/05 S/p 1 L IV fluids and BP improved Noted to be orthostatic with 26 point drop in SBP from sitting to standing. Likely due to hypovolemia D/c IVF Fall precautions implemented Add GABBY francisco HRs 70-80s with SPB
[2021-06-07 13:33] LABS: Iron 37 ug/dL (37-170)
[2021-06-07 13:43] LABS: Percent Iron Saturation 13 % (20-50)
[2021-06-07 14:24] LABS: Folic Acid 18.2 ng/mL (2.76->20)
[2021-06-07] MEDS: methylPREDNISolone SOD SUCC 125 MG VIAL 80 MG IV PUSH ×2 (14:42→21:06)
[2021-06-07] MEDS: DOCUSATE SODIUM 100 MG CAPSULE PO (17:19)
[2021-06-07] MEDS: ACETAMINOPHEN 500 MG TABLET 1000 MG PO (18:42)
--- NOTE | 2021-06-07 18:46 | PC.NURSE ---
pt provided copy of healthcare power of contracts attorney; placed in pt's chart
[2021-06-08] MEDS: methylPREDNISolone SOD SUCC 125 MG VIAL 80 MG IV PUSH ×3 (05:13→21:19)
[2021-06-08 06:23] VITALS: BP 132/75; PULSE 78; RESP 17; TEMP 36.1; O2SAT 92
[2021-06-08 08:00] VITALS: BP 126/94; BP 129/76; BP 142/78; PULSE 69; PULSE 72; PULSE 73; RESP 14; TEMP 36.6; O2SAT 94; O2SAT 96; O2SAT 97
[2021-06-08 08:13] LABS: Basophils Percent Auto 0.2 % (0.2-1.2); Immature Granulocyte Absolute 0.14 K/mm3 (0.00-0.031); Immature Granulocyte Percent A 1.1 % (0-0.5); Lymphocytes Absolute Auto 1.01 K/mm3 (0.9-3.2); Mean Corpuscular HGB Conc 33.3 g/dl (32-36); Monocytes Absolute Auto 0.2 K/mm3 (0.1-0.6); Monocytes Percent Auto 1.3 % (2.6-8.5); Neutrophils Absolute Auto 11.4 K/mm3 (1.3-6.7); Neutrophils Percent Auto 89.4 % (45.5-73.1); Nucleated Red Blood Cells Perc 0.2 % (0.0-0.2); Red Blood Count 3.45 M/mm3 (4.2-5.4); Red Cell Distribution Width 13.5 % (11.5-14.5); White Blood Count 12.7 K/mm3 (4.5-10.0)
[2021-06-08 08:45] LABS: Alanine Aminotransferase 27 U/L (4-35); Albumin Level 4.3 g/dL (3.5-5.1); Alkaline Phosphatase 46 U/L (38-126); Anion Gap 13 mmol/L (8-16); Aspartate Amino Transferase 46 U/L (14-36); Bilirubin,Total 0.7 mg/dL (0.2-1.3); Blood Urea Nitrogen 20 mg/dL (7-17); Calcium 8.9 mg/dL (8.4-10.2); Carbon Dioxide 22 mmol/L (22-30); Chloride 103 mmol/L (98-107); Estimated CRCL calculation 79 ml/min; Estimated Glomerular Filt Rate > 60; Glucose 175 mg/dL (65-110); Potassium 4.3 mmol/L (3.4-5.0); Sodium 138 mmol/L (137-145)
--- NOTE | 2021-06-08 08:56 | PM.DS ---
DS: Discharge Diagnosis Discharge Diagnosis (1) Fall in elderly patient: Code(s): R29.6 - Repeated falls Status: Acute Assessment and Plan: Patient had a mechanical fall while walking her dog. Stated she landed on her face. Head CT with no acute intracranial findings including intracranial hemorrhage, acute infarct, or mass lesion Sustained nasal fracture. See below. Patient denies any further injuries Fall precautions implemented (2) Acute anterior epistaxis: Code(s): R04.0 - Epistaxis Status: Acute Assessment and Plan: Secondary to acute nasal fracture Appreciate ENT consultation Rhino rocket placed by ENT Follow-up in the office on discharge THIS WEEK. Hemoglobin stable on presentation at 13.6.-->9.9 today Transfuse to maintain Hgb 7.0 or above Platelets 11 today. Transfuse to keep above 10 or if bleeding restarts. (3) Closed fracture nasal bone: Qualifiers: Encounter type: initial encounter Qualified Code(s): S02.2XXA - Fracture of nasal bones, initial encounter for closed fracture Code(s): S02.2XXA - Fracture of nasal bones, initial encounter for closed fracture Status: Acute Assessment and Plan: Secondary to fall as above CT showed acute fracture of the nasal bones, right nasal process of maxilla, and nasal septum ENT follow-up as above Analgesics available as needed for pain Secondary to fall as above CT showed acute fracture of the nasal bones, right nasal process of maxilla, and nasal septum ENT follow-up as above Analgesics available as needed for pain (4) Thrombocytopenia: Code(s): D69.6 - Thrombocytopenia, unspecified Status: Acute Assessment and Plan: Incidentally discovered on outpatient labs 2 weeks ago Patient followed up with PCP last week and was referred to Hematology, but patient has not been contacted for appointment She has not been contacted for appointment Platelet count is 18 Discussed case with junior automation engineer Dr. Shaw Squires recommended transfusion of 1 unit platelets , improved to 38. Platelets 11 today. Transfuse to keep above 10 or if bleeding restarts. 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 Squires today He started her on Solu-Medrol 125 mg q.8 hours for possible ITP treatment. He is checking Platelet antibody and spleen ultrasound. He may add IV IgG if necessary and will transfuse platelet if platelet count is less than 10,000 or if she becomes symptomatic. (5) Head injury: Qualifiers: Encounter type: initial encounter Qualified Code(s): S09.90XA - Unspecified injury of head, initial encounter Code(s): S09.90XA - Unspecified injury of head, initial encounter Status: Acute Assessment and Plan: Secondary to fall CT scan with no acute findings In light of her thrombocytopenia, there is concern for delayed subdural hemorrhage, Consider Head CT prior to discharge Monitor mental status closely (6) Hypotension: Qualifiers: Hypotension type: unspecified hypotension type Qualified Code(s): I95.9 - Hypotension, unspecified Code(s): I95.9 - Hypotension, unspecified Status: Acute Assessment and Plan: RESOLVED. BP decline to 80/51 on 06/05 S/p 1 L IV fluids and BP improved Noted to be orthostatic with 26 point drop in SBP from sitting to standing. Likely due to hypovolemia D/c IVF Fall precautions implemented Add GABBY hose HRs 70-80s with SPB 130-140s today. 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
[2021-06-08 09:07] LABS: Platelet Count Result 14 k/mm3 (150-375)
--- NOTE | 2021-06-08 09:55 | PM.IMPN ---
Progress Note: A&P Assessment and Plan (1) Fall in elderly patient: Code(s): R29.6 - Repeated falls Status: Acute Assessment and Plan: Patient had a mechanical fall while walking her dog. Stated she landed on her face. Head CT with no acute intracranial findings including intracranial hemorrhage, acute infarct, or mass lesion Sustained nasal fracture. See below. Patient denies any further injuries Fall precautions implemented (2) Acute anterior epistaxis: Code(s): R04.0 - Epistaxis Status: Acute Assessment and Plan: Secondary to acute nasal fracture Appreciate ENT consultation morning of 06/05/2021, Dr. Dangelo, ENT inserted the nasal hemostatic balloon and nasal packing into right nare due to uncontrolled bleeding at that time. Today, I spoke with ENT Dr. Clayton. He advised no further inflating or adding air to RhinoRocket, even if it is lose in her nose. He also advised that patient and staff, not attempt to remove the balloon or the nasal packing. If it falls out, monitor for any new or active bleeding or bright red blood. Patient and staff should expect patient to have drainage (clear/blood tinged/dark crusted dried blood) . Dr. Clayton expects Dr. Dangelo to follow up inhouse on Friday or Friday. Continue to keep head of bed elevated. No strenuous activity for at least 1 week and until Platelet function returns to normal. Nasal saline sprays in the left nasal passage to help break down the clot. VERY Gentle nose blowing will be okay per ENT. Transfuse to keep Platelets >10 and Hemoglobin >7 or if active bleeding restarts. (3) Closed fracture nasal bone: Qualifiers: Encounter type: initial encounter Qualified Code(s): S02.2XXA - Fracture of nasal bones, initial encounter for closed fracture Code(s): S02.2XXA - Fracture of nasal bones, initial encounter for closed fracture Status: Acute Assessment and Plan: Secondary to fall as above CT showed acute fracture of the nasal bones, right nasal process of maxilla, and nasal septum ENT follow-up as above Analgesics available as needed for pain small amount of purulent drainage and WBC up to 12.7, ordering Saline/ocean nasal spray PRN Augmentin PO 875 mg Q 12 hours for 5-7 days and Florastor. eating and drinking, taking in orals without any difficulty. denies any vision changes, denies blurred vision, denies pain to gentle facial and scalp or orbital palpation, denies injury to teeth/tongue/oral mucosa. (4) Thrombocytopenia: Code(s): D69.6 - Thrombocytopenia, unspecified Status: Acute Assessment and Plan: Incidentally discovered on outpatient labs 2 weeks ago Patient followed up with PCP last week and was referred to Hematology, but patient has not been contacted for appointment She has not been contacted for appointment Her platelets were 18 admission, she was given platelets and the count improved to 38. Yesterday it dropped again to 11. Dr. Diamond started her on Solu-Medrol 125 mg q.8 hours for possible ITP treatment, now weaned to SoluMedrol 80 mg Q 8 hours . He is checking Platelet antibody, vitamin B12 level (WNL), and iron panel (near normal). Today platelets 14. No transfusions or active bleeding noted today. Abdominal ultrasound showed Hepatic steatosis. Dr. Diamond may add IV IgG if necessary and will transfuse platelet if platelet count is less than 10,000 or if she becomes symptomatic. Keeping patient admitted is at high risk for bleeding as long as Platelet Count is LOW. (5) Head injury: Qualifiers: Encounter type: initial encounter Qualified Code(s): S09.90XA - Unspecified injury of head, initial encounter Code(s): S09.90XA - Unspecified injury of head, initial encounter Status: Acute Assessment and Plan: Secondary to fall CT scan with no acute findings In light of her thrombocytopenia, there is concern for delayed subdural hemorrh
[2021-06-08] MEDS: PANTOPRAZOLE 40 MG TABLET PO (11:58)
[2021-06-08] MEDS: DOCUSATE SODIUM 100 MG CAPSULE PO ×2 (11:58→15:34)
[2021-06-08 14:00] VITALS: BP 142/60; PULSE 86; RESP 16; TEMP 36.1; O2SAT 99
[2021-06-08] MEDS: AMOXICILLIN/CLAVULANATE K 875-125 MG TAB 1 TABLET PO ×2 (15:33→21:19)
[2021-06-08] MEDS: SACCHAROMYCES BOULARDII 250 MG CAPSULE PO (15:36)
[2021-06-08 16:05] LABS: Add Urine Microscopic? YES; Appearance Urine Clear (Clear); Bacteria Urine Trace /hpf; Bilirubin Urine Negative (Negative); Blood Urine Negative (Negative); Color Urine Yellow (Yellow); Glucose Urine UA Negative (Negative); Ketones Urine Negative (Negative); Leukocyte Esterase Ur Negative LEU/UL (NEGATIVE); Mucus Urine Rare /lpf; Nitrate Urine Negative (Negative); Protein Urine 1+ mg/dL (Negative); RBC Urine 0-2 /hpf (0-2); Squamous Epithelial Cell Urine Moderate /hpf (Few); Urobilinogen Urine Negative mg/dL (<2.0)
[2021-06-08 16:08] LABS: Specific Grav Ur 1.032 (1.001-1.035)
[2021-06-08 20:00] VITALS: RESP 18; TEMP 36.3
[2021-06-09 06:00] VITALS: BP 120/69; PULSE 70; RESP 20; TEMP 37.2; O2SAT 96
[2021-06-09] MEDS: methylPREDNISolone SOD SUCC 125 MG VIAL 80 MG IV PUSH ×3 (06:20→21:52)
[2021-06-09] MEDS: AMOXICILLIN/CLAVULANATE K 875-125 MG TAB 1 TABLET PO ×2 (08:27→21:52)
[2021-06-09] MEDS: DOCUSATE SODIUM 100 MG CAPSULE PO ×2 (08:27→21:52)
[2021-06-09] MEDS: SACCHAROMYCES BOULARDII 250 MG CAPSULE PO ×2 (08:28→16:34)
[2021-06-09] MEDS: PANTOPRAZOLE 40 MG TABLET PO (08:28)
--- NOTE | 2021-06-09 11:43 | P.PNIM_ITS ---
Progress Note: A&P Assessment and Plan (1) Fall in elderly patient: Code(s): R29.6 - Repeated falls Status: Acute Assessment and Plan: Patient had a mechanical fall while walking her dog. Stated she landed on her face. * Head CT with no acute intracranial findings including intracranial hemorrhage, acute infarct, or mass lesion * Sustained nasal fracture. See below. * Patient denies any further injuries * Fall precautions implemented (2) Acute anterior epistaxis: Code(s): R04.0 - Epistaxis Status: Acute Assessment and Plan: Secondary to acute nasal fracture Appreciate ENT consultation morning of 06/05/2021, Dr. Dangelo, ENT inserted the nasal hemostatic balloon and nasal packing into right nare due to uncontrolled bleeding at that time. Today, I spoke with ENT Dr. Clayton. He advised no further inflating or adding air to RhinoRocket, even if it is lose in her nose. He also advised that patient and staff, not attempt to remove the balloon or the nasal packing. If it falls out, monitor for any new or active bleeding or bright red blood. Patient and staff should expect patient to have drainage (clear/blood tinged/dark crusted dried blood) . Dr. Clayton expects Dr. Dangelo to follow up inhouse on Friday or Friday. Continue to keep head of bed elevated. No strenuous activity for at least 1 week and until Platelet function returns to normal. Nasal saline sprays in the left nasal passage to help break down the clot. VERY Gentle nose blowing will be okay per ENT. Transfuse to keep Platelets >10 and Hemoglobin >7 or if active bleeding restarts. (3) Closed fracture nasal bone: Qualifiers: Encounter type: initial encounter Qualified Code(s): S02.2XXA - Fracture of nasal bones, initial encounter for closed fracture Code(s): S02.2XXA - Fracture of nasal bones, initial encounter for closed fracture Status: Acute Assessment and Plan: Secondary to fall as above CT showed acute fracture of the nasal bones, right nasal process of maxilla, and nasal septum ENT follow-up as above Analgesics available as needed for pain small amount of purulent drainage and WBC up to 12.7, ordering Saline/ocean nasal spray PRN Augmentin PO 875 mg Q 12 hours for 5-7 days and Florastor. eating and drinking, taking in orals without any difficulty. denies any vision changes, denies blurred vision, denies pain to gentle facial and scalp or orbital palpation, denies injury to teeth/tongue/oral mucosa. (4) Thrombocytopenia: Code(s): D69.6 - Thrombocytopenia, unspecified Status: Acute Assessment and Plan: Incidentally discovered on outpatient labs 2 weeks ago Patient followed up with PCP last week and was referred to Hematology, but patient has not been contacted for appointment She has not been contacted for appointment Her platelets were 18 admission, she was given platelets and the count improved to 38. Yesterday it dropped again to 11. Dr. Diamond started her on Solu-Medrol 125 mg q.8 hours for possible ITP treatment, now weaned to SoluMedrol 80 mg Q 8 hours . He is checking Platelet antibody, vitamin B12 level (WNL), and iron panel (near normal). Today platelets 14. No transfusions or active bleeding noted today. Abdominal ultrasound showed Hepatic steatosis. Dr. Diamond may add IV IgG if necessary and will transfuse platelet if platelet count is less than 10,000 or if she becomes symptomatic. Keeping patient admitted is at high risk for bleeding as long as Platelet Count is LOW. (5) Head injury: Qualifiers: Encounter type: initial encounter Qu
[2021-06-09 14:00] VITALS: BP 118/70; PULSE 68; RESP 18; TEMP 36.7; O2SAT 97
[2021-06-09 16:36] VITALS: BP 137/74
[2021-06-09 16:37] VITALS: BP 135/75
[2021-06-09 16:39] VITALS: BP 140/70
[2021-06-09 22:00] VITALS: BP 139/79; PULSE 68; RESP 16; TEMP 36.6; O2SAT 96
[2021-06-10] MEDS: methylPREDNISolone SOD SUCC 125 MG VIAL 80 MG IV PUSH (05:47)
[2021-06-10 06:00] VITALS: BP 133/64; PULSE 50; RESP 18; TEMP 36.6; O2SAT 96
[2021-06-10 06:44] LABS: Hematocrit 29.5 % (37.0-47.0); Hemoglobin 9.7 g/dL (12.0-15.0); Mean Corpuscular HGB Conc 32.9 g/dl (32-36); Mean Corpuscular Hemoglobin 29.2 pg (26-34); Mean Corpuscular Volume 88.9 fl (80-100); Mean Platelet Volume 12.1 fl (7.4-10.4); Platelet Count Result 112 k/mm3 (150-375); Red Blood Count 3.32 M/mm3 (4.2-5.4); Red Cell Distribution Width 14.2 % (11.5-14.5); White Blood Count 20.7 K/mm3 (4.5-10.0)
[2021-06-10 08:00] VITALS: BP 104/62; BP 113/64; BP 126/64
[2021-06-10] MEDS: AMOXICILLIN/CLAVULANATE K 875-125 MG TAB 1 TABLET PO ×2 (08:18→20:45)
[2021-06-10] MEDS: PANTOPRAZOLE 40 MG TABLET PO (08:19)
[2021-06-10] MEDS: SACCHAROMYCES BOULARDII 250 MG CAPSULE PO ×2 (08:19→17:39)
--- NOTE | 2021-06-10 13:18 | PM.IMPN ---
Progress Note: A&P Assessment and Plan (1) Fall in elderly patient: Code(s): R29.6 - Repeated falls Status: Acute Assessment and Plan: interval history Patient had a mechanical fall while walking her dog. Stated she landed on her face. Head CT with no acute intracranial findings including intracranial hemorrhage, acute infarct, or mass lesion Sustained nasal fracture. (2) Acute anterior epistaxis: Code(s): R04.0 - Epistaxis Status: Acute Assessment and Plan: Interval history Secondary to acute nasal fracture Appreciate ENT consultation morning of 06/05/2021, Dr. Dangelo, ENT inserted the nasal hemostatic balloon and nasal packing into right nare due to uncontrolled bleeding at that time. Today, I spoke with ENT Dr. Clayton. He advised no further inflating or adding air to RhinoRocket, even if it is lose in her nose. He also advised that patient and staff, not attempt to remove the balloon or the nasal packing. If it falls out, monitor for any new or active bleeding or bright red blood. Patient and staff should expect patient to have drainage (clear/blood tinged/dark crusted dried blood) . Dr. Clayton expects Dr. Dangelo to follow up inhouse on Friday or Friday. I tried to call Ent office on weekend -to notify of Platelet improvement only outgoing message no voicemail (3) Closed fracture nasal bone: Qualifiers: Encounter type: initial encounter Qualified Code(s): S02.2XXA - Fracture of nasal bones, initial encounter for closed fracture Code(s): S02.2XXA - Fracture of nasal bones, initial encounter for closed fracture Status: Acute Assessment and Plan: interval history Secondary to fall as above CT showed acute fracture of the nasal bones, right nasal process of maxilla, and nasal septum ENT follow-up as above Analgesics available as needed for pain (4) Thrombocytopenia: Code(s): D69.6 - Thrombocytopenia, unspecified Status: Acute Assessment and Plan: Interval history ]Incidentally discovered on outpatient labs 2 weeks ago Patient followed up with PCP last week and was referred to Hematology, but patient has not been contacted for appointment She has not been contacted for appointment Her platelets were 18 admission, she was given platelets and the count improved to 38. Yesterday it dropped again to 11. Dr. Diamond started her on Solu-Medrol 125 mg q.8 hours for possible ITP treatment, now weaned to SoluMedrol 80 mg Q 8 hours Platelets much improved US liver and spleen are nL, Bone marrow not necessary Hematology follow up (5) Head injury: Qualifiers: Encounter type: initial encounter Qualified Code(s): S09.90XA - Unspecified injury of head, initial encounter Code(s): S09.90XA - Unspecified injury of head, initial encounter Status: Acute Assessment and Plan: Secondary to fall CT scan with no acute findings (6) Hypotension: Qualifiers: Hypotension type: unspecified hypotension type Qualified Code(s): I95.9 - Hypotension, unspecified Code(s): I95.9 - Hypotension, unspecified Status: Acute Assessment and Plan: RESOLVED. 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 Shaw Squires recommended checking iron and vitamin B12 level which are nl and Hemoglobin >7 or if active bleeding restarts. (9) Acute infection of sinus: Code(s): J01.90 - Acute sinusitis, unspecified Status: Acute Assessment and Plan: WCC high 20,000 Pt is on oral ABX Augmentin PO 875 mg Q 12 hours for 5-7 days and Florast
[2021-06-10 14:00] VITALS: BP 113/64; PULSE 67; RESP 18; TEMP 36.9; O2SAT 96
[2021-06-10 20:25] VITALS: PULSE 67; RESP 18; TEMP 36.9; O2SAT 96
[2021-06-10] MEDS: DOCUSATE SODIUM 100 MG CAPSULE PO (20:45)
[2021-06-10 22:00] VITALS: BP 117/64; PULSE 51; RESP 18; TEMP 36.6; O2SAT 95
[2021-06-11 06:00] VITALS: BP 121/72; PULSE 55; RESP 20; TEMP 36.3; O2SAT 98
[2021-06-11 09:11] LABS: Basophils Absolute Auto 0.1 K/mm3 (0.0-0.1); Basophils Percent Auto 0.6 % (0.2-1.2); Eosinophils Absolute Auto 0.1 K/mm3 (0-0.3); Eosinophils Percent Auto 0.4 % (0-4.4); Hematocrit 34.2 % (37.0-47.0); Hemoglobin 10.8 g/dL (12.0-15.0); Immature Granulocyte Absolute 0.76 K/mm3 (0.00-0.031); Immature Granulocyte Percent A 4.1 % (0-0.5); Lymphocytes Absolute Auto 3.48 K/mm3 (0.9-3.2); Lymphocytes Percent Auto 18.6 % (18.3-44.2); Mean Corpuscular HGB Conc 31.6 g/dl (32-36); Mean Corpuscular Volume 91.7 fl (80-100); Mean Platelet Volume 10.8 fl (7.4-10.4); Monocytes Percent Auto 5.3 % (2.6-8.5); Neutrophils Absolute Auto 13.2 K/mm3 (1.3-6.7); Nucleated Red Blood Cells Absolute Auto 0.2 K/mm3 (0.0-0.012); Nucleated Red Blood Cells Perc 1.1 % (0.0-0.2); Platelet Count Result 166 k/mm3 (150-375); Red Blood Count 3.73 M/mm3 (4.2-5.4); Red Cell Distribution Width 14.3 % (11.5-14.5); White Blood Count 18.7 K/mm3 (4.5-10.0)
[2021-06-11] MEDS: DOCUSATE SODIUM 100 MG CAPSULE PO (12:16)
[2021-06-11] MEDS: AMOXICILLIN/CLAVULANATE K 875-125 MG TAB 1 TABLET PO (12:16)
[2021-06-11] MEDS: SACCHAROMYCES BOULARDII 250 MG CAPSULE PO ×2 (12:16→17:00)
[2021-06-11] MEDS: FERROUS SULFATE 324 MG TABLET PO ×2 (12:17→17:00)
[2021-06-11] MEDS: PANTOPRAZOLE 40 MG TABLET PO (12:17)
[2021-06-11 14:00] VITALS: BP 125/69; PULSE 61; RESP 18; TEMP 36.1; O2SAT 98
[2021-06-11 15:04] VITALS: O2SAT 94
--- NOTE | 2021-06-11 17:31 | PM.DS ---
DS: Admitting Diagnosis Discharge Date 06/11/2021 Admitting Diagnosis Nosebleed, nasal fracture DS: Discharge Diagnosis Discharge Diagnosis (1) Fall in elderly patient: Code(s): R29.6 - Repeated falls Status: Acute Assessment and Plan: Patient had a mechanical fall while walking her dog. Stated she landed on her face. Head CT with no acute intracranial findings including intracranial hemorrhage, acute infarct, or mass lesion. Sustained nasal fracture. Fall precautions discussed. (2) Acute anterior epistaxis: Code(s): R04.0 - Epistaxis Status: Acute Assessment and Plan: Secondary to acute nasal fracture. She was seen in consultation by ENT. ENT inserted a rhino rocket in the right near due to uncontrolled bleeding. Bleeding did resolve and the rhino rocket was able to be deflated and eventually removed. The patient was watched for several hours following removal and had no further bleeding. She will follow-up with ENT as an outpatient on 06/14/2021. Avoid forceful nose blowing. Continue nasal saline several times per day. Elevate head. (3) Closed fracture nasal bone: Qualifiers: Encounter type: initial encounter Qualified Code(s): S02.2XXA - Fracture of nasal bones, initial encounter for closed fracture Code(s): S02.2XXA - Fracture of nasal bones, initial encounter for closed fracture Status: Acute Assessment and Plan: Secondary to fall as above. CT showed acute fracture of the nasal bones, right nasal process of maxilla, and nasal septum. Continue with ENT follow-up as above. Supportive care provided. (4) Thrombocytopenia: Code(s): D69.6 - Thrombocytopenia, unspecified Status: Acute Assessment and Plan: Incidentally discovered on outpatient labs 2 weeks prior to presentation. She has been referred to Hematology as outpatient but had not been seen yet. Platelet count 66280 on admission. She was transfused 1 unit of platelets and platelet count dropped again. [place] to be consistent with diagnosis of ITP. She was started on steroids and platelets improved. Platelet count normalized at time of discharge. Abdominal ultrasound showed normal liver and spleen. She will continue prednisone taper starting with 60 mg and taper 10 mg every 3 days. Repeat CBC in 1 week and follow-up with Dr. Squires in 1 week. (5) Head injury: Qualifiers: Encounter type: initial encounter Qualified Code(s): S09.90XA - Unspecified injury of head, initial encounter Code(s): S09.90XA - Unspecified injury of head, initial encounter Status: Acute Assessment and Plan: Secondary to fall. CT scan with no acute findings (6) Hypotension: Qualifiers: Hypotension type: unspecified hypotension type Qualified Code(s): I95.9 - Hypotension, unspecified Code(s): I95.9 - Hypotension, unspecified Status: Acute Assessment and Plan: Resolved with IV fluids. Patient was not orthostatic. 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 Follow-up with PCP (8) Anemia: Code(s): D64.9 - Anemia, unspecified Status: Acute Assessment and Plan: Found had vision iron stores and was started on iron supplementation b.i.d.. Repeat CBC in 1 week and follow-up with Dr. Squires (9) Acute infection of sinus: Code(s): J01.90 - Acute sinusitis, unspecified Status: Acute Assessment and Plan: Ruled out. Patient had no signs or symptoms to suggest acute sinus infection. She was started on Augmentin which was discontinued. (10) Acute UTI: Code(s): N39.0 - Urinary tract infection, site not specified Status: Acute Assessment
== END 2021-06-11 18:36 | disposition home or self-care (01) | DRG 155 ==
LOC: ANHED 11:19 → ANH3MEDSUR 14:17
PROVIDERS: Internal Medicine; Internal Medicine Hematology & Oncology; Nurse Practitioner; Nurse Practitioner Adult Health; Admitting Provider Internal Medicine; Emergency Provider Emergency Medicine; PCP Family Medicine; Visit Provider Physician Assistant
DX: S02.2XXA Fracture of nasal bones, initial encounter for closed fracture (principal); D69.3 Immune thrombocytopenic purpura; N39.0 Urinary tract infection, site not specified; Z68.42 Body mass index [BMI] 45.0-49.9, adult; R04.0 Epistaxis; B96.20 Unspecified Escherichia coli [E. coli] as the cause of diseases classified elsewhere; R29.6 Repeated falls; W01.0XXA Fall on same level from slipping, tripping and stumbling without subsequent striking against object, initial encounter; S00.83XA Contusion of other part of head, initial encounter; I95.9 Hypotension, unspecified; R90.89 Other abnormal findings on diagnostic imaging of central nervous system; D64.9 Anemia, unspecified; J01.90 Acute sinusitis, unspecified; E55.9 Vitamin D deficiency, unspecified; Z85.828 Personal history of other malignant neoplasm of skin; E78.5 Hyperlipidemia, unspecified; E66.9 Obesity, unspecified; Z20.822 Contact with and (suspected) exposure to COVID-19
CPT/HCPCS: 30901; 36415; 36430; 70450; 70486; 72125; 76700; 80048; 80053; 81001; 82607; 82728; 82746; 83540; 83550; 83735; 85014; 85018; 85025; 85027; 85055; 85610; 85730; 86023; 86850; 86900; 86901; 87040; 87077; 87086; 87186; 87426; 90471; 90715; 96361; 96374; 96375; 97110; 97116; 97161; 97165; 99285; P9036; A9270; C9803; G0378; J0692; J1170; J2405; J2930; J7030; J7050; J7120; P9034

== ENCOUNTER 2021-06-18 15:54 | Outpatient (CLI) | payer MEDICARE, SELFPAY ==
[2021-06-18 16:18] LABS: Hematocrit 37.4 % (37.0-47.0); Mean Corpuscular HGB Conc 32.1 g/dl (32-36); Mean Corpuscular Hemoglobin 29.3 pg (26-34); Mean Corpuscular Volume 91.4 fl (80-100); Mean Platelet Volume 10.3 fl (7.4-10.4); Platelet Count Result 273 k/mm3 (150-375); Red Blood Count 4.09 M/mm3 (4.2-5.4); Red Cell Distribution Width 15.2 % (11.5-14.5); White Blood Count 28.7 K/mm3 (4.5-10.0)
[2021-06-18 20:31] LABS: Band Neutrophils Percent 9 % (0-6); Lymphocytes Absolute Manual 0.28 K/mm3 (1.1-4.5); Metamyelocytes Percent 2 %; Monocytes Absolute Manual 0.86 K/mm3 (0.1-0.90); Monocytes Percent Manual 3 % (3-9); Myelocytes Percent 3 %; Neutrophils Absolute Manual 26.11 K/mm3 (1.7-7.2); Neutrophils Percent Manual 82 % (46-73); Total Cells Counted 100
[2021-06-18 20:32] LABS: Platelet Estimate Adequate (Adequate)
[2021-06-18 20:34] LABS: Smudge Cells FEW
== END 2021-06-18 15:55 | disposition home or self-care (01) ==
LOC: ANHLAB 15:57
PROVIDERS: PCP Nurse Practitioner Family; Visit Provider Physician Assistant
DX: D64.9 Anemia, unspecified (principal); D69.6 Thrombocytopenia, unspecified; D72.829 Elevated white blood cell count, unspecified
CPT/HCPCS: 36415; 85025

== ENCOUNTER 2021-07-03 11:40 | Outpatient (CLI) | payer MEDICARE, SELFPAY ==
[2021-07-03 11:55] LABS: Basophils Percent Auto 0.1 % (0.2-1.2); Eosinophils Absolute Auto 0.1 K/mm3 (0-0.3); Eosinophils Percent Auto 1.6 % (0-4.4); Hematocrit 41.3 % (37.0-47.0); Hemoglobin 12.7 g/dL (12.0-15.0); Immature Granulocyte Absolute 0.04 K/mm3 (0.00-0.031); Immature Granulocyte Percent A 0.5 % (0-0.5); Lymphocytes Absolute Auto 1.02 K/mm3 (0.9-3.2); Lymphocytes Percent Auto 12.6 % (18.3-44.2); Mean Corpuscular HGB Conc 30.8 g/dl (32-36); Mean Corpuscular Volume 97.4 fl (80-100); Monocytes Absolute Auto 0.5 K/mm3 (0.1-0.6); Monocytes Percent Auto 6.7 % (2.6-8.5); Neutrophils Absolute Auto 6.4 K/mm3 (1.3-6.7); Neutrophils Percent Auto 78.5 % (45.5-73.1); Platelet Count Result 33 k/mm3 (150-375); Red Blood Count 4.24 M/mm3 (4.2-5.4); Red Cell Distribution Width 15.7 % (11.5-14.5); White Blood Count 8.1 K/mm3 (4.5-10.0)
== END 2021-07-03 11:41 | disposition home or self-care (01) ==
LOC: ANHLAB 11:42
PROVIDERS: PCP Nurse Practitioner Family; Visit Provider Internal Medicine Hematology & Oncology
DX: I10 Essential (primary) hypertension (principal)
CPT/HCPCS: 36415; 85025

== ENCOUNTER 2021-07-17 11:37 | Outpatient (CLI) | payer MEDICARE, SELFPAY ==
[2021-07-17 11:54] LABS: Hemoglobin 14.1 g/dL (12.0-15.0); Mean Corpuscular HGB Conc 31.3 g/dl (32-36); Mean Corpuscular Hemoglobin 29.6 pg (26-34); Mean Corpuscular Volume 94.3 fl (80-100); Mean Platelet Volume 10.1 fl (7.4-10.4); Platelet Count Result 200 k/mm3 (150-375); Red Blood Count 4.77 M/mm3 (4.2-5.4); Red Cell Distribution Width 15.2 % (11.5-14.5); White Blood Count 28.8 K/mm3 (4.5-10.0)
[2021-07-17 11:58] LABS: Blood Urea Nitrogen 32 mg/dL (8-26); Carbon Dioxide 26 mmol/L (22-30); Chloride 99 mmol/L (98-109); Estimated Glomerular Filt Rate 55; Glucose 134 mg/dL (70-105); Potassium 4.9 mmol/L (3.5-4.9); Sodium 135 mmol/L (138-146)
[2021-07-17 16:05] LABS: Alanine Aminotransferase 75 U/L (4-35); Alkaline Phosphatase 59 U/L (38-126); Anion Gap 5 mmol/L (8-16); Aspartate Amino Transferase 59 U/L (14-36); Bilirubin,Total 0.4 mg/dL (0.2-1.3); Blood Urea Nitrogen 34 mg/dL (7-17); Calcium 9.2 mg/dL (8.4-10.2); Carbon Dioxide 26 mmol/L (22-30); Chloride 101 mmol/L (98-107); Estimated Glomerular Filt Rate > 60; Glucose 141 mg/dL (65-110); Potassium 5.1 mmol/L (3.4-5.0); Sodium 132 mmol/L (137-145)
== END 2021-07-17 11:38 | disposition home or self-care (01) ==
LOC: ANHLAB 11:39
PROVIDERS: PCP Nurse Practitioner Family; Visit Provider Internal Medicine Hematology & Oncology
DX: D69.3 Immune thrombocytopenic purpura (principal)
CPT/HCPCS: 36415; 80053; 85027

== ENCOUNTER 2021-07-31 10:19 | Outpatient (CLI) | payer MEDICARE, SELFPAY ==
[2021-07-31 10:36] LABS: Hematocrit 45.4 % (37.0-47.0); Hemoglobin 14.2 g/dL (12.0-15.0); Mean Corpuscular HGB Conc 31.3 g/dl (32-36); Mean Corpuscular Hemoglobin 29.5 pg (26-34); Mean Corpuscular Volume 94.2 fl (80-100); Mean Platelet Volume 10.4 fl (7.4-10.4); Platelet Count Result 97 k/mm3 (150-375); Red Blood Count 4.82 M/mm3 (4.2-5.4); Red Cell Distribution Width 15.5 % (11.5-14.5); White Blood Count 14.8 K/mm3 (4.5-10.0)
== END 2021-07-31 10:20 | disposition home or self-care (01) ==
LOC: ANHLAB 10:21
PROVIDERS: PCP Nurse Practitioner Family; Visit Provider Internal Medicine Hematology & Oncology
DX: D69.3 Immune thrombocytopenic purpura (principal)
CPT/HCPCS: 36415; 85027

== ENCOUNTER 2021-08-14 12:34 | Outpatient (CLI) | payer MEDICARE, SELFPAY ==
[2021-08-14 12:58] LABS: Hematocrit 45.3 % (37.0-47.0); Hemoglobin 14.2 g/dL (12.0-15.0); Immature Platelet Fraction Pct 6.3 % (0.9-11.2); Mean Corpuscular HGB Conc 31.3 g/dl (32-36); Mean Corpuscular Hemoglobin 29.6 pg (26-34); Mean Corpuscular Volume 94.4 fl (80-100); Mean Platelet Volume 10.6 fl (7.4-10.4); Platelet Count Result 73 k/mm3 (150-375); Red Cell Distribution Width 15.2 % (11.5-14.5); White Blood Count 15.1 K/mm3 (4.5-10.0)
== END 2021-08-14 12:35 | disposition home or self-care (01) ==
PROVIDERS: PCP Nurse Practitioner Family; Visit Provider Internal Medicine Hematology & Oncology
DX: D69.3 Immune thrombocytopenic purpura (principal)
CPT/HCPCS: 36415; 85027; 85055

== ENCOUNTER 2021-08-28 08:29 | Outpatient (CLI) | payer MEDICARE, SELFPAY ==
[2021-08-28 08:44] LABS: Hemoglobin 13.5 g/dL (12.0-15.0); Mean Corpuscular HGB Conc 31.4 g/dl (32-36); Mean Corpuscular Hemoglobin 29.7 pg (26-34); Mean Corpuscular Volume 94.5 fl (80-100); Mean Platelet Volume 9.9 fl (7.4-10.4); Platelet Count Result 147 k/mm3 (150-375); Red Blood Count 4.55 M/mm3 (4.2-5.4); Red Cell Distribution Width 15.3 % (11.5-14.5); White Blood Count 11.5 K/mm3 (4.5-10.0)
== END 2021-08-28 08:30 | disposition home or self-care (01) ==
LOC: ANHLAB 08:30
PROVIDERS: PCP Nurse Practitioner Family; Visit Provider Internal Medicine Hematology & Oncology
DX: D69.3 Immune thrombocytopenic purpura (principal)
CPT/HCPCS: 36415; 85027

== ENCOUNTER 2021-10-02 10:35 | Outpatient (CLI) | payer MEDICARE, SELFPAY ==
[2021-10-02 10:50] LABS: Hematocrit 40.1 % (37.0-47.0); Hemoglobin 12.3 g/dL (12.0-15.0); Mean Corpuscular HGB Conc 30.7 g/dl (32-36); Mean Corpuscular Hemoglobin 29.1 pg (26-34); Mean Corpuscular Volume 94.8 fl (80-100); Mean Platelet Volume 10.3 fl (7.4-10.4); Platelet Count Result 254 k/mm3 (150-375); Red Blood Count 4.23 M/mm3 (4.2-5.4); Red Cell Distribution Width 14.3 % (11.5-14.5)
== END 2021-10-02 10:36 | disposition home or self-care (01) ==
LOC: ANHLAB 10:37
PROVIDERS: PCP Nurse Practitioner Family; Visit Provider Internal Medicine Hematology & Oncology
DX: D69.3 Immune thrombocytopenic purpura (principal)
CPT/HCPCS: 36415; 85027

== ENCOUNTER 2021-12-25 11:06 | Outpatient (CLI) | payer MEDICARE, SELFPAY ==
[2021-12-25 11:40] LABS: Basophils Percent Auto 0.3 % (0.2-1.2); Eosinophils Absolute Auto 0.4 K/mm3 (0-0.3); Eosinophils Percent Auto 4.3 % (0-4.4); Hematocrit 43.4 % (37.0-47.0); Hemoglobin 13.8 g/dL (12.0-15.0); Immature Granulocyte Absolute 0.02 K/mm3 (0.00-0.031); Immature Granulocyte Percent A 0.2 % (0-0.5); Immature Platelet Fraction Pct 9.6 % (0.9-11.2); Lymphocytes Absolute Auto 1.72 K/mm3 (0.9-3.2); Lymphocytes Percent Auto 17.9 % (18.3-44.2); Mean Corpuscular HGB Conc 31.8 g/dl (32-36); Mean Corpuscular Hemoglobin 27.6 pg (26-34); Mean Corpuscular Volume 86.8 fl (80-100); Mean Platelet Volume 11.2 fl (7.4-10.4); Monocytes Absolute Auto 0.5 K/mm3 (0.1-0.6); Monocytes Percent Auto 5.5 % (2.6-8.5); Neutrophils Absolute Auto 6.9 K/mm3 (1.3-6.7); Neutrophils Percent Auto 71.8 % (45.5-73.1); Platelet Count Result 93 k/mm3 (150-375); Red Cell Distribution Width 14.2 % (11.5-14.5); White Blood Count 9.6 K/mm3 (4.5-10.0)
== END 2021-12-25 11:07 | disposition home or self-care (01) ==
LOC: ANHLAB 11:07
PROVIDERS: PCP Nurse Practitioner Family; Visit Provider Internal Medicine Hematology & Oncology
DX: D69.3 Immune thrombocytopenic purpura (principal)
CPT/HCPCS: 36415; 85025; 85055

== ENCOUNTER 2022-02-05 08:58 | Outpatient (CLI) | payer MEDICARE, SELFPAY ==
[2022-02-05 09:33] LABS: Basophils Percent Auto 0.4 % (0.2-1.2); Eosinophils Absolute Auto 0.3 K/mm3 (0-0.3); Eosinophils Percent Auto 3.6 % (0-4.4); Hematocrit 43.1 % (37.0-47.0); Hemoglobin 13.8 g/dL (12.0-15.0); Immature Granulocyte Absolute 0.03 K/mm3 (0.00-0.031); Immature Granulocyte Percent A 0.4 % (0-0.5); Immature Platelet Fraction Pct 12.5 % (0.9-11.2); Lymphocytes Absolute Auto 1.64 K/mm3 (0.9-3.2); Lymphocytes Percent Auto 19.3 % (18.3-44.2); Mean Corpuscular Hemoglobin 27.8 pg (26-34); Mean Corpuscular Volume 86.7 fl (80-100); Monocytes Absolute Auto 0.5 K/mm3 (0.1-0.6); Monocytes Percent Auto 5.4 % (2.6-8.5); Neutrophils Percent Auto 70.9 % (45.5-73.1); Platelet Count Result 47 k/mm3 (150-375); Red Blood Count 4.97 M/mm3 (4.2-5.4); Red Cell Distribution Width 14.5 % (11.5-14.5); White Blood Count 8.5 K/mm3 (4.5-10.0)
== END 2022-02-05 08:59 | disposition home or self-care (01) ==
LOC: ANHLAB 09:00
PROVIDERS: PCP Nurse Practitioner Family; Visit Provider Internal Medicine Hematology & Oncology
DX: D69.3 Immune thrombocytopenic purpura (principal)
CPT/HCPCS: 36415; 85025; 85055

== ENCOUNTER 2022-03-05 08:22 | Outpatient (CLI) | payer MEDICARE, SELFPAY ==
--- NOTE | 2022-03-05 | ECG_ITS ---
Measurements Intervals [place] Rate: 48 P: 58 [place]: 178 QRS: 8 QRSD: 75 T: 13 QT: 424 QTc: 381 Interpretive Statements SINUS BRADYCARDIA LOW QRS VOLTAGE IN PRECORDIAL LEADS [QRS DEFLECTION < 1.0 mV IN CHEST LEADS] NO PREVIOUS ECG AVAILABLE FOR COMPARISON Electronically Signed On 03-06-2022 14:32:03 CDT by Emani Hopkins M.D.
[2022-03-05 08:45] LABS: Hematocrit 43.7 % (37.0-47.0); Hemoglobin 13.9 g/dL (12.0-15.0); Immature Platelet Fraction Pct 11.9 % (0.9-11.2); Mean Corpuscular HGB Conc 31.8 g/dl (32-36); Mean Corpuscular Hemoglobin 28.1 pg (26-34); Mean Corpuscular Volume 88.5 fl (80-100); Platelet Count Result 55 k/mm3 (150-375); Red Blood Count 4.94 M/mm3 (4.2-5.4); Red Cell Distribution Width 13.9 % (11.5-14.5); White Blood Count 7.9 K/mm3 (4.5-10.0)
== END 2022-03-05 08:23 | disposition home or self-care (01) ==
PROVIDERS: PCP Nurse Practitioner Family; Visit Provider Internal Medicine Hematology & Oncology
DX: R00.0 Tachycardia, unspecified (principal); D69.3 Immune thrombocytopenic purpura; R00.1 Bradycardia, unspecified
CPT/HCPCS: 36415; 85027; 85055; 93005

== ENCOUNTER 2022-05-07 11:09 | Outpatient (CLI) | payer MEDICARE, SELFPAY ==
[2022-05-07 11:20] LABS: Hematocrit 42.8 % (37.0-47.0); Hemoglobin 13.7 g/dL (12.0-15.0); Immature Platelet Fraction Pct 16.7 % (0.9-11.2); Mean Corpuscular Hemoglobin 28.7 pg (26-34); Mean Corpuscular Volume 89.7 fl (80-100); Mean Platelet Volume 11.5 fl (7.4-10.4); Platelet Count Result 23 k/mm3 (150-375); Red Blood Count 4.77 M/mm3 (4.2-5.4); Red Cell Distribution Width 13.1 % (11.5-14.5); White Blood Count 8.4 K/mm3 (4.5-10.0)
== END 2022-05-07 11:10 | disposition home or self-care (01) ==
LOC: ANHLAB 11:10
PROVIDERS: Visit Provider Internal Medicine Hematology & Oncology
DX: D69.3 Immune thrombocytopenic purpura (principal)
CPT/HCPCS: 36415; 85027; 85055

== ENCOUNTER → 2022-05-07 13:33 | Outpatient (CLI) | payer MEDICARE, SELFPAY ==
--- NOTE | ~2022-05-07 | MM_ITS ---
EXAMINATION: MM screening kimmy BI w heidi HISTORY: Screening TECHNIQUE: Craniocaudal and mediolateral oblique 3-D tomosynthesis images were obtained and synthetic 2-D images were generated. CAD analysis was submitted and interpreted. COMPARISON: Comparison to multiple prior studies sequentially, with oldest reviewed study dated 04/26. BREAST PARENCHYMAL COMPOSITION: There are scattered areas of fibroglandular density. FINDINGS: There is a new focal asymmetry medially in the right breast on CC view, posterior third . T here are no suspicious masses, calcifications or architectural distortion in the left breast to sugge st malignancy. IMPRESSION: 1. New focal right breast asymmetry medially on CC view. 2. Additional mammographic views and possible breast ultrasound are recommended. BI-RADS Category 0: Incomplete: Needs additional imaging evaluation. Reviewed, dictated and finalized at location B. CTOR PATIENT ACCOUNTING IMPRESSION: 1. New focal right breast asymmetry medially on CC view. 2. Additional mammographic views and possible breast ultrasound are recommended . BI-RADS Category 0: Incomplete: Needs additional imaging evaluation.
== END ==
PROVIDERS: PCP Nurse Practitioner Family; Visit Provider Nurse Practitioner Family
DX: Z12.31 Encounter for screening mammogram for malignant neoplasm of breast (principal); R92.8 Other abnormal and inconclusive findings on diagnostic imaging of breast
CPT/HCPCS: 77063; 77067

== ENCOUNTER 2022-06-07 11:25 | Outpatient (CLI) | payer MEDICARE, SELFPAY ==
[2022-06-07 11:37] LABS: Hematocrit 44.7 % (37.0-47.0); Hemoglobin 14.6 g/dL (12.0-15.0); Immature Platelet Fraction Pct 12.6 % (0.9-11.2); Mean Corpuscular HGB Conc 32.7 g/dl (32-36); Mean Corpuscular Hemoglobin 28.8 pg (26-34); Mean Corpuscular Volume 88.2 fl (80-100); Mean Platelet Volume 11.5 fl (7.4-10.4); Platelet Count Result 38 k/mm3 (150-375); Red Blood Count 5.07 M/mm3 (4.2-5.4); Red Cell Distribution Width 13.4 % (11.5-14.5); White Blood Count 8.3 K/mm3 (4.5-10.0)
== END 2022-06-07 11:26 | disposition home or self-care (01) ==
LOC: ANHLAB 11:25
PROVIDERS: PCP Nurse Practitioner Family; Visit Provider Internal Medicine Hematology & Oncology
DX: D69.3 Immune thrombocytopenic purpura (principal)
CPT/HCPCS: 36415; 85027; 85055

== ENCOUNTER 2022-07-19 11:12 | Outpatient (CLI) | payer MEDICARE, SELFPAY ==
[2022-07-19 11:35] LABS: Hematocrit 43.3 % (37.0-47.0); Hemoglobin 13.9 g/dL (12.0-15.0); Mean Corpuscular HGB Conc 32.1 g/dl (32-36); Mean Corpuscular Hemoglobin 28.3 pg (26-34); Mean Platelet Volume 12.6 fl (7.4-10.4); Platelet Count Result 42 k/mm3 (150-375); Red Blood Count 4.92 M/mm3 (4.2-5.4); Red Cell Distribution Width 14.4 % (11.5-14.5); White Blood Count 9.6 K/mm3 (4.5-10.0)
== END 2022-07-19 11:13 | disposition home or self-care (01) ==
PROVIDERS: PCP Nurse Practitioner Family; Visit Provider Internal Medicine Hematology & Oncology
DX: D69.3 Immune thrombocytopenic purpura (principal)
CPT/HCPCS: 36415; 85027

== ENCOUNTER 2022-11-14 11:17 | Outpatient (CLI) | payer MEDICARE, SELFPAY ==
[2022-11-14 11:30] LABS: Basophils Absolute Auto 0.1 K/mm3 (0.0-0.1); Basophils Percent Auto 0.4 % (0.2-1.2); Eosinophils Absolute Auto 0.2 K/mm3 (0-0.3); Eosinophils Percent Auto 1.6 % (0-4.4); Hematocrit 43.7 % (37.0-47.0); Hemoglobin 14.6 g/dL (12.0-15.0); Immature Granulocyte Absolute 0.03 K/mm3 (0.00-0.031); Immature Granulocyte Percent A 0.2 % (0-0.5); Immature Platelet Fraction Pct 11.4 % (0.9-11.2); Lymphocytes Absolute Auto 1.71 K/mm3 (0.9-3.2); Lymphocytes Percent Auto 13.9 % (18.3-44.2); Mean Corpuscular HGB Conc 33.4 g/dl (32-36); Mean Corpuscular Volume 86.7 fl (80-100); Mean Platelet Volume 10.7 fl (7.4-10.4); Monocytes Absolute Auto 0.7 K/mm3 (0.1-0.6); Monocytes Percent Auto 5.5 % (2.6-8.5); Neutrophils Absolute Auto 9.6 K/mm3 (1.3-6.7); Neutrophils Percent Auto 78.4 % (45.5-73.1); Platelet Count Result 57 k/mm3 (150-375); Red Blood Count 5.04 M/mm3 (4.2-5.4); Red Cell Distribution Width 13.5 % (11.5-14.5); White Blood Count 12.3 K/mm3 (4.5-10.0)
== END 2022-11-14 11:18 | disposition home or self-care (01) ==
LOC: ANHLAB 11:19
PROVIDERS: PCP Nurse Practitioner Family; Visit Provider Internal Medicine Hematology & Oncology
DX: D69.3 Immune thrombocytopenic purpura (principal)
CPT/HCPCS: 36415; 85025; 85055

== ENCOUNTER 2023-01-28 10:50 | Outpatient (CLI) | payer MEDICARE, SELFPAY ==
--- NOTE | 2023-01-28 11:01 | ECG_ITS ---
Measurements Intervals [place] Rate: 118 P: 67 [place]: 212 QRS: 26 QRSD: 77 T: 64 QT: 354 QTc: 497 Interpretive Statements SINUS TACHYCARDIA WITH FIRST DEGREE AV BLOCK LOW QRS VOLTAGE IN PRECORDIAL LEADS BORDERLINE T WAVE ABNORMALITY- ANT/INF LEADS ABNORMAL ECG COMPARED TO ECG 03/05/2022 10:48:20 SINUS TACHYCARDIA NOW PRESENT FIRST DEGREE AV BLOCK NOW PRESENT Electronically Signed On 01-28-2023 11:28:03 CDT by Madi Dennis D.O.
== END 2023-01-28 10:51 | disposition home or self-care (01) ==
PROVIDERS: PCP Nurse Practitioner Family; Visit Provider Nurse Practitioner Family
DX: R00.0 Tachycardia, unspecified (principal); I44.0 Atrioventricular block, first degree
CPT/HCPCS: 93005

== ENCOUNTER 2023-02-19 10:37 | Outpatient (CLI) | payer MEDICARE, SELFPAY ==
[2023-02-19 10:53] LABS: Basophils Absolute Auto 0.1 K/mm3 (0.0-0.1); Basophils Percent Auto 0.5 % (0.2-1.2); Eosinophils Absolute Auto 0.2 K/mm3 (0-0.3); Eosinophils Percent Auto 2.3 % (0-4.4); Hematocrit 45.5 % (37.0-47.0); Hemoglobin 14.8 g/dL (12.0-15.0); Immature Granulocyte Absolute 0.02 K/mm3 (0.00-0.031); Immature Granulocyte Percent A 0.2 % (0-0.5); Immature Platelet Fraction Pct 18.4 % (0.9-11.2); Lymphocytes Absolute Auto 1.89 K/mm3 (0.9-3.2); Lymphocytes Percent Auto 19.5 % (18.3-44.2); Mean Corpuscular HGB Conc 32.5 g/dl (32-36); Mean Corpuscular Hemoglobin 28.9 pg (26-34); Mean Corpuscular Volume 88.9 fl (80-100); Mean Platelet Volume 11.9 fl (7.4-10.4); Monocytes Absolute Auto 0.6 K/mm3 (0.1-0.6); Monocytes Percent Auto 6.2 % (2.6-8.5); Neutrophils Absolute Auto 6.9 K/mm3 (1.3-6.7); Neutrophils Percent Auto 71.3 % (45.5-73.1); Platelet Count Result 39 k/mm3 (150-375); Red Blood Count 5.12 M/mm3 (4.2-5.4); Red Cell Distribution Width 13.1 % (11.5-14.5); White Blood Count 9.7 K/mm3 (4.5-10.0)
[2023-02-19 10:56] LABS: Blood Urea Nitrogen 21 mg/dL (8-26); Carbon Dioxide 26 mmol/L (22-30); Chloride 105 mmol/L (98-109); Estimated Glomerular Filt Rate 49; Glucose 108 mg/dL (70-105); Ionized Calcium (POC) 1.22 mmol/L (1.11-1.31); Potassium 4.6 mmol/L (3.5-4.9); Sodium 141 mmol/L (138-146)
== END 2023-02-19 10:38 | disposition home or self-care (01) ==
LOC: ANHLAB 10:39
PROVIDERS: PCP Nurse Practitioner Family; Visit Provider Internal Medicine Hematology & Oncology
DX: D69.3 Immune thrombocytopenic purpura (principal)
CPT/HCPCS: 36415; 80047; 85025; 85055

== ENCOUNTER 2023-04-24 12:32 | Outpatient (CLI) | payer MEDICARE, SELFPAY ==
[2023-04-24 12:49] LABS: Basophils Percent Auto 0.3 % (0.2-1.2); Eosinophils Absolute Auto 0.1 K/mm3 (0-0.3); Eosinophils Percent Auto 0.9 % (0-4.4); Hematocrit 43.2 % (37.0-47.0); Hemoglobin 13.8 g/dL (12.0-15.0); Immature Granulocyte Absolute 0.01 K/mm3 (0.00-0.031); Immature Granulocyte Percent A 0.1 % (0-0.5); Immature Platelet Fraction Pct 14.9 % (0.9-11.2); Lymphocytes Absolute Auto 1.65 K/mm3 (0.9-3.2); Lymphocytes Percent Auto 18.2 % (18.3-44.2); Mean Corpuscular HGB Conc 31.9 g/dl (32-36); Mean Corpuscular Hemoglobin 28.9 pg (26-34); Mean Corpuscular Volume 90.6 fl (80-100); Mean Platelet Volume 12.3 fl (7.4-10.4); Monocytes Absolute Auto 0.5 K/mm3 (0.1-0.6); Monocytes Percent Auto 5.9 % (2.6-8.5); Neutrophils Absolute Auto 6.8 K/mm3 (1.3-6.7); Neutrophils Percent Auto 74.6 % (45.5-73.1); Platelet Count Result 44 k/mm3 (150-375); Red Blood Count 4.77 M/mm3 (4.2-5.4); Red Cell Distribution Width 13.1 % (11.5-14.5); White Blood Count 9.1 K/mm3 (4.5-10.0)
[2023-04-24 12:50] LABS: Blood Urea Nitrogen 17 mg/dL (8-26); Carbon Dioxide 29 mmol/L (22-30); Chloride 104 mmol/L (98-109); Estimated Glomerular Filt Rate 40; Glucose 129 mg/dL (70-105); Ionized Calcium (POC) 1.21 mmol/L (1.11-1.31); Potassium 4.1 mmol/L (3.5-4.9); Sodium 143 mmol/L (138-146)
== END 2023-04-24 12:33 | disposition home or self-care (01) ==
LOC: ANHLAB 12:33
PROVIDERS: PCP Nurse Practitioner Family; Visit Provider Internal Medicine Hematology & Oncology
DX: D69.3 Immune thrombocytopenic purpura (principal)
CPT/HCPCS: 36415; 80047; 85025; 85055

== ENCOUNTER 2023-06-17 12:34 | Outpatient (CLI) | payer MEDICARE, SELFPAY ==
[2023-06-17 12:53] LABS: Basophils Percent Auto 0.4 % (0.2-1.2); Eosinophils Absolute Auto 0.1 K/mm3 (0-0.3); Eosinophils Percent Auto 1.3 % (0-4.4); Hematocrit 46.5 % (37.0-47.0); Hemoglobin 14.8 g/dL (12.0-15.0); Immature Granulocyte Absolute 0.03 K/mm3 (0.00-0.031); Immature Granulocyte Percent A 0.3 % (0-0.5); Immature Platelet Fraction Pct 16.2 % (0.9-11.2); Lymphocytes Percent Auto 16.8 % (18.3-44.2); Mean Corpuscular HGB Conc 31.8 g/dl (32-36); Mean Corpuscular Hemoglobin 28.3 pg (26-34); Mean Corpuscular Volume 88.9 fl (80-100); Mean Platelet Volume 12.2 fl (7.4-10.4); Monocytes Absolute Auto 0.6 K/mm3 (0.1-0.6); Monocytes Percent Auto 6.3 % (2.6-8.5); Neutrophils Absolute Auto 7.6 K/mm3 (1.3-6.7); Neutrophils Percent Auto 74.9 % (45.5-73.1); Platelet Count Result 37 k/mm3 (150-375); Red Blood Count 5.23 M/mm3 (4.2-5.4); Red Cell Distribution Width 13.2 % (11.5-14.5); White Blood Count 10.1 K/mm3 (4.5-10.0)
[2023-06-17 16:36] LABS: Anion Gap 7 mmol/L (8-16); Blood Urea Nitrogen 18 mg/dL (7-17); Calcium 9.4 mg/dL (8.4-10.2); Carbon Dioxide 28 mmol/L (22-30); Chloride 105 mmol/L (98-107); Estimated Glomerular Filt Rate > 60; Glucose 84 mg/dL (65-110); Potassium 4.3 mmol/L (3.4-5.0); Sodium 140 mmol/L (137-145)
== END 2023-06-17 12:35 | disposition home or self-care (01) ==
LOC: ANHLAB 12:36
PROVIDERS: PCP Nurse Practitioner Family; Visit Provider Internal Medicine Hematology & Oncology
DX: D69.3 Immune thrombocytopenic purpura (principal)
CPT/HCPCS: 36415; 80048; 85025; 85055

== ENCOUNTER 2023-07-19 08:12 | Outpatient (CLI) | payer MEDICARE, SELFPAY ==
--- NOTE | ~2023-07-19 | US_ITS ---
US renal BI 07/19/2023 08:34 Procedure: Realtime transabdominal ultrasound of the kidneys and bladder. Indication: Abnormal blood chemistries. Comparison: Ultrasound dated 06/08/2021 Findings: Renal echotexture is normal bilaterally without hydronephrosis, contour deforming mass. The right kidney measures 9.5 cm and left kidney measures 9.5 cm. In the left kidney there is an echogen ic focus with posterior shadowing, consistent with nonobstructing renal stone. Bladder within normal limits. Impression: 1: Echogenic focus with posterior shadowing in the left kidney, suspicious for nonobstructing nephrol ithiasis. Reviewed, dictated and finalized at location A. [employer]ING [employer] T[employer]ER Impression: 1: Echogenic focus with posterior shadowing in the left kidney, suspicious for nonobstructing nephrolithiasis.
== END 2023-07-19 08:13 ==
LOC: MICIMG 08:13
PROVIDERS: PCP Internal Medicine Nephrology; Visit Provider Internal Medicine Nephrology
DX: R79.89 Other specified abnormal findings of blood chemistry (principal); I10 Essential (primary) hypertension
CPT/HCPCS: 76775

== ENCOUNTER 2023-07-21 08:02 | Outpatient (CLI) | payer MEDICARE, SELFPAY ==
[2023-07-21 10:19] LABS: Albumin Level 4.3 g/dL (3.5-5.1); Anion Gap 3 mmol/L (8-16); Blood Urea Nitrogen 13 mg/dL (7-17); Calcium 9.4 mg/dL (8.4-10.2); Carbon Dioxide 30 mmol/L (22-30); Chloride 107 mmol/L (98-107); Estimated Glomerular Filt Rate 55; Glucose 113 mg/dL (65-110); Phosphorus 3.1 mg/dL (2.5-4.5); Potassium 4.2 mmol/L (3.4-5.0); Sodium 140 mmol/L (137-145)
[2023-07-21 10:20] LABS: Creatinine Urine 148.4 mg/dL
[2023-07-21 10:25] LABS: Total Protein Urine Random < 5 mg/dL; Ur Ttl Prot Creatinine Ratio < 0.03 mg/mg (0-0.20)
[2023-07-21 10:26] LABS: Complement C3 122 mg/dL (88-165)
[2023-07-23 13:58] LABS: Albumin 4.1 g/dL (3.8-4.8); Alpha 1 Globulin 0.3 g/dL (0.2-0.3); Alpha 2 Globulin 0.6 g/dL (0.5-0.9); Beta 1 Globulin 0.5 g/dL (0.4-0.6); Gamma Globulin 0.9 g/dL (0.8-1.7); Protein, Total 6.7 g/dL (6.1-8.1)
[2023-07-24 21:23] LABS: ANCA Screen Negative (Negative)
[2023-07-25 00:10] LABS: Creatinine, Random Urine 147 mg/dL (20-275); Total Protein/Creatinine Ratio 88 mg/g creat (24-184)
[2023-07-25 10:52] LABS: Anti Glomerular Basement Memb <1.0 AI (<1.0)
[2023-07-25 18:02] LABS: Anti Nuclear Antibody Pattern Nuclear, Speckled
== END 2023-07-21 08:03 | disposition home or self-care (01) ==
LOC: ANHLAB 08:03
PROVIDERS: PCP Internal Medicine Nephrology; Visit Provider Internal Medicine Hematology & Oncology
DX: R79.89 Other specified abnormal findings of blood chemistry (principal); I10 Essential (primary) hypertension
CPT/HCPCS: 36415; 80069; 82570; 83520; 84155; 84156; 84165; 84166; 86036; 86038; 86039; 86160; 86225

== ENCOUNTER 2023-10-06 08:40 | Outpatient (CLI) | payer MEDICARE, SELFPAY ==
[2023-10-06 09:09] LABS: Basophils Percent Auto 0.5 % (0.2-1.2); Eosinophils Absolute Auto 0.1 K/mm3 (0-0.3); Eosinophils Percent Auto 1.8 % (0-4.4); Hematocrit 45.4 % (37.0-47.0); Hemoglobin 14.6 g/dL (12.0-15.0); Immature Granulocyte Absolute 0.03 K/mm3 (0.00-0.031); Immature Granulocyte Percent A 0.4 % (0-0.5); Lymphocytes Absolute Auto 1.61 K/mm3 (0.9-3.2); Lymphocytes Percent Auto 20.4 % (18.3-44.2); Mean Corpuscular HGB Conc 32.2 g/dl (32-36); Mean Corpuscular Hemoglobin 27.9 pg (26-34); Mean Corpuscular Volume 86.8 fl (80-100); Mean Platelet Volume 12.6 fl (7.4-10.4); Monocytes Absolute Auto 0.4 K/mm3 (0.1-0.6); Monocytes Percent Auto 4.4 % (2.6-8.5); Neutrophils Absolute Auto 5.7 K/mm3 (1.3-6.7); Neutrophils Percent Auto 72.5 % (45.5-73.1); Platelet Count Result 35 k/mm3 (150-375); Red Blood Count 5.23 M/mm3 (4.2-5.4); Red Cell Distribution Width 13.9 % (11.5-14.5); White Blood Count 7.9 K/mm3 (4.5-10.0)
[2023-10-06 11:23] LABS: Alanine Aminotransferase 17 U/L (6-35); Albumin Level 4.1 g/dL (3.5-5.1); Alkaline Phosphatase 77 U/L (38-126); Anion Gap 6 mmol/L (4-12); Aspartate Amino Transferase 28 U/L (14-36); Bilirubin,Total 0.6 mg/dL (0.2-1.3); Blood Urea Nitrogen 14 mg/dL (7-17); Calcium 8.6 mg/dL (8.4-10.2); Carbon Dioxide 21 mmol/L (22-30); Chloride 110 mmol/L (98-107); Cholesterol 198 mg/dL (0-200); Estimated Glomerular Filt Rate > 60; Glucose 117 mg/dL (65-110); HDL Direct 43 mg/dL; Potassium 3.9 mmol/L (3.4-5.0); Sodium 137 mmol/L (137-145); Triglycerides 134 mg/dL (<150)
[2023-10-06 11:32] LABS: Appearance Urine Clear (Clear); Bacteria Urine None Seen /hpf; Bilirubin Urine Negative (Negative); Blood Urine Trace (Negative); Color Urine Yellow (Yellow); Glucose Urine UA 3+ mg/dL (Negative); Ketones Urine Trace mg/dL (Negative); Leukocyte Esterase Ur Negative LEU/UL (Negative); Nitrate Urine Negative (Negative); Non Pathogenic Casts 0-2; Protein Urine Negative (Negative); Specific Grav Ur 1.022 (1.001-1.035); Squamous Epithelial Cell Urine Occasional /hpf (Few); Urobilinogen Urine 0.2 mg/dL (<2.0); WBC Urine 0-5 /hpf (0-3); pH Urine 5.5 (5.0-9.0)
[2023-10-06 11:34] LABS: LDL Cholesterol Direct 130 mg/dL
[2023-10-06 11:40] LABS: Add Urine Microscopic? YES
[2023-10-06 11:49] LABS: Vitamin D 25 Hydroxy 40.3 ng/mL
[2023-10-06 13:27] LABS: Hemoglobin A1C 6.2 % (<5.7)
== END 2023-10-06 08:41 | disposition home or self-care (01) ==
LOC: ANHLAB 08:42
PROVIDERS: PCP Family Medicine; Visit Provider Internal Medicine Hematology & Oncology
DX: E66.01 Morbid (severe) obesity due to excess calories (principal); I10 Essential (primary) hypertension; E78.5 Hyperlipidemia, unspecified; Z87.442 Personal history of urinary calculi
CPT/HCPCS: 36415; 80053; 80061; 81001; 82306; 83036; 84443; 85025

== ENCOUNTER 2023-10-21 10:37 | Emergency (ER) | payer MEDICARE, SELFPAY ==
--- NOTE | ~2023-10-21 | XR_ITS ---
EXAMINATION: XR chest 2V DATE: 10/21/2023 11:12 INDICATION: Palpitations. TECHNIQUE: Frontal and lateral views of the chest were obtained. COMPARISON: CT abdomen and pelvis 05/02/2021 FINDINGS: There is no pneumonia, pleural effusion, or pneumothorax. The heart size is normal. IMPRESSION: 1. No acute cardiopulmonary disease. Reviewed, dictated and finalized at location A.
--- NOTE | 2023-10-21 10:39 | ECG_ITS ---
SEE SCANNED COPY FOR CONFIRMED REPORT MTDD
[2023-10-21 10:44] VITALS: BP 150/110; PULSE 133; RESP 16; TEMP 37.1; O2SAT 95
[2023-10-21 11:02] VITALS: PULSE 64
[2023-10-21 11:04] LABS: Basophils Percent Auto 0.3 % (0.2-1.2); Eosinophils Absolute Auto 0.1 K/mm3 (0-0.3); Eosinophils Percent Auto 0.9 % (0-4.4); Hematocrit 46.2 % (37.0-47.0); Hemoglobin 14.8 g/dL (12.0-15.0); Immature Granulocyte Absolute 0.01 K/mm3 (0.00-0.031); Immature Granulocyte Percent A 0.1 % (0-0.5); Immature Platelet Fraction Pct 17.2 % (0.9-11.2); Lymphocytes Absolute Auto 1.45 K/mm3 (0.9-3.2); Lymphocytes Percent Auto 19.2 % (18.3-44.2); Mean Corpuscular Hemoglobin 28.4 pg (26-34); Mean Corpuscular Volume 88.5 fl (80-100); Mean Platelet Volume 12.1 fl (7.4-10.4); Monocytes Absolute Auto 0.4 K/mm3 (0.1-0.6); Monocytes Percent Auto 5.7 % (2.6-8.5); Neutrophils Absolute Auto 5.6 K/mm3 (1.3-6.7); Neutrophils Percent Auto 73.8 % (45.5-73.1); Platelet Count Result 32 k/mm3 (150-375); Red Blood Count 5.22 M/mm3 (4.2-5.4); Red Cell Distribution Width 14.4 % (11.5-14.5); White Blood Count 7.5 K/mm3 (4.5-10.0)
[2023-10-21 11:12] LABS: Alanine Aminotransferase 19 U/L (6-35); Albumin Level 4.3 g/dL (3.5-5.1); Alkaline Phosphatase 79 U/L (38-126); Anion Gap 6 mmol/L (4-12); Aspartate Amino Transferase 29 U/L (14-36); Bilirubin,Total 0.6 mg/dL (0.2-1.3); Blood Urea Nitrogen 17 mg/dL (7-17); Carbon Dioxide 25 mmol/L (22-30); Chloride 108 mmol/L (98-107); Estimated CRCL calculation 60 ml/min; Estimated Glomerular Filt Rate > 60; Glucose 105 mg/dL (65-110); Lipase 152 U/L (23-300); Potassium 4.2 mmol/L (3.4-5.0); Prothrombin Time 13.2 Seconds (11.1-14.7); Sodium 139 mmol/L (137-145)
[2023-10-21 11:13] LABS: Partial Thromboplastin Time 31.8 Seconds (22.3-36.8)
[2023-10-21 11:23] LABS: Troponin I < 0.012 ng/mL (0.000-0.034)
--- NOTE | 2023-10-21 11:46 | ECG_ITS ---
SEE SCANNED COPY FOR CONFIRMED REPORT MTDD
[2023-10-21] MEDS: ASPIRIN 81 MG CHEWABLE TABLET 324 MG PO (12:00)
--- NOTE | 2023-10-21 12:05 | ED.GENADULT ---
HPI - General Adult General Chief complaint: Arrhythmia/Palpitations Stated complaint: from cardiology sent for probable atrial flutter Time Seen by Provider: 10/21/23 10:59 History of Present Illness HPI narrative: 73-year-old female presented emergency department for evaluation rapid heart rate. Patient does have prior history of episode of rapid heart rate when she was seeing her oncologist and she was referred to the emergency department. After evaluation patient's heart rate was back to normal sinus. Today patient was following up with cardiology for possibility of being started on a diet pill by her primary care physician but they wanted cardiology approval prior to starting this medication. While patient was in the office she had a heart rate up to 140s. Patient denies any complaints and patient was referred to the emergency department. By the time patient got to the emergency department her was back in the 60s. Related Data Home Medications Medication Instructions Recorded Confirmed dapagliflozin propanediol 10 mg 10 mg PO DAILY 05/13/23 07/28/23 tablet (Farxiga) losartan 50 mg tablet 50 mg PO DAILY 05/13/23 07/28/23 Allergies Allergy/AdvReac Type Severity Reaction Status Date / Time nitrofurantoin Allergy Mild Other Verified 10/21/23 10:38 Review of Systems Review of Systems: All systems reviewed & are unremarkable except as noted in HPI and below PMFSH Past Medical History Medical History Diverticulitis Hyperlipidemia Left ear impacted cerumen Nephrolithiasis Skin cancer Thrombocytopenia Vitamin D deficiency Surgical History Surgical History History of cataract surgery History of local excision of skin lesion Family History Family History Sibling Diabetes mellitus Cerebrovascular accident Father Heart disease Mother Liver cancer Social History Social History Social History: Patient lives at home with her has. She is independent in her daily activities. Her primary care provider is Judi Herrera NP. She does he needs her , Asif, as her surrogate decision maker and she would like to be a full code. Smoking status: Never smoker Second hand tobacco smoke exposure: No Alcohol intake: never Alcohol use details: 6 drinks/year Substance use: never Substance use type: does not use Do You Feel Safe in your Home?: Yes Lack of Transportation: No Lack of Food: Never True Current Housing: I Have Housing Concerned About Future Housing: No Difficulty Paying Gas/Electric Bills: No Difficulty Paying for Meds: No Currently Unemployed: No Education: Associate Degree Difficulty w/ Childcare or Family Care: No Living arrangements: with family Occupation/Education: retired Gender identity (if verbalized by the patient): Female Spiritual care concerns: No Agree to blood products: Yes Exam Narrative: APPEARANCE: Well appearing, no pain, no distress, well-nourished. HEAD: normocephalic, atraumatic. EYES: PERRLA/EOMI, conjunctivae clear. NOSE: Normal no drainage EARS:TMS clear with good light reflex. THROAT: Pharynx clear, no exudate. NECK: Supple. No adenopathy, no masses. RESPIRATORY: Airway patent, respirations nonlabored. Clear to auscultation bilaterally, no rales, rhonchi, wheezing. CARDIOVASCULAR: Regular rate and rhythm without murmurs rubs or gallops. ABDOMINAL: Soft, nontender, nondistended, normal bowel sounds MUSCULOSKELETAL: Moves all extremities. Strength/ROM intact, No edema, No calf tenderness. NEURO: Alert. Cranial nerves II through XII intact. grossly intact SKIN: Warm, dry. Normal Color Course Vital Signs Vital signs: Vital Signs Temperature 98.7 F 10/21/23 10:44 Pulse Rate 133 H 10/21/23 10:44
[2023-10-21 12:35] VITALS: BP 146/89; PULSE 59; RESP 18; O2SAT 96
== END 2023-10-21 12:37 | disposition home or self-care (01) ==
PROVIDERS: Emergency Provider Emergency Medicine; PCP Family Medicine
DX: R00.0 Tachycardia, unspecified (principal); E78.5 Hyperlipidemia, unspecified; E55.9 Vitamin D deficiency, unspecified; Z98.49 Cataract extraction status, unspecified eye; Z87.442 Personal history of urinary calculi; Z85.828 Personal history of other malignant neoplasm of skin; Z79.899 Other long term (current) drug therapy; R00.1 Bradycardia, unspecified; I49.1 Atrial premature depolarization
CPT/HCPCS: 36415; 71046; 80053; 83690; 84484; 85025; 85055; 85610; 85730; 93005; 99284; A9270

== ENCOUNTER 2023-10-28 10:06 | Outpatient (CLI) | payer MEDICARE, SELFPAY ==
[2023-10-28 10:24] LABS: Basophils Percent Auto 0.5 % (0.2-1.2); Eosinophils Absolute Auto 0.2 K/mm3 (0-0.3); Hemoglobin 15.1 g/dL (12.0-15.0); Immature Granulocyte Absolute 0.02 K/mm3 (0.00-0.031); Immature Granulocyte Percent A 0.2 % (0-0.5); Lymphocytes Absolute Auto 1.61 K/mm3 (0.9-3.2); Lymphocytes Percent Auto 19.8 % (18.3-44.2); Mean Corpuscular HGB Conc 32.1 g/dl (32-36); Mean Corpuscular Hemoglobin 28.2 pg (26-34); Mean Corpuscular Volume 87.7 fl (80-100); Mean Platelet Volume 12.7 fl (7.4-10.4); Monocytes Absolute Auto 0.4 K/mm3 (0.1-0.6); Monocytes Percent Auto 4.8 % (2.6-8.5); Neutrophils Absolute Auto 5.9 K/mm3 (1.3-6.7); Neutrophils Percent Auto 72.7 % (45.5-73.1); Platelet Count Result 52 k/mm3 (150-375); Red Blood Count 5.36 M/mm3 (4.2-5.4); Red Cell Distribution Width 14.1 % (11.5-14.5); White Blood Count 8.2 K/mm3 (4.5-10.0)
[2023-10-28 12:46] LABS: Anion Gap 8 mmol/L (4-12); Blood Urea Nitrogen 21 mg/dL (7-17); Calcium 9.3 mg/dL (8.4-10.2); Carbon Dioxide 25 mmol/L (22-30); Chloride 107 mmol/L (98-107); Estimated Glomerular Filt Rate 55; Glucose 133 mg/dL (65-110); Potassium 4.3 mmol/L (3.4-5.0); Sodium 140 mmol/L (137-145)
== END 2023-10-28 10:07 | disposition home or self-care (01) ==
LOC: ANHLAB 10:07
PROVIDERS: PCP Family Medicine; Visit Provider Internal Medicine Hematology & Oncology
DX: D69.3 Immune thrombocytopenic purpura (principal)
CPT/HCPCS: 36415; 80048; 85025

== ENCOUNTER 2023-11-26 11:38 | Outpatient (CLI) | payer MEDICARE, SELFPAY ==
[2023-11-26 13:52] LABS: Albumin Level 4.4 g/dL (3.5-5.1); Anion Gap 6 mmol/L (4-12); Blood Urea Nitrogen 15 mg/dL (7-17); Calcium 8.9 mg/dL (8.4-10.2); Carbon Dioxide 28 mmol/L (22-30); Chloride 106 mmol/L (98-107); Estimated Glomerular Filt Rate 55; Glucose 96 mg/dL (65-110); Phosphorus 2.8 mg/dL (2.5-4.5); Potassium 4.4 mmol/L (3.4-5.0); Sodium 140 mmol/L (137-145)
[2023-11-26 13:54] LABS: Creatinine Urine 51.5 mg/dL; Total Protein Urine Random 10 mg/dL; Ur Ttl Prot Creatinine Ratio 0.19 mg/mg (0-0.20)
[2023-11-26 14:01] LABS: Parathyroid Intact 111.5 pg/mL (7.5-53.5)
[2023-11-26 14:05] LABS: Vitamin D 25 Hydroxy 49.7 ng/mL
== END 2023-11-26 11:39 | disposition home or self-care (01) ==
LOC: ANHLAB 11:40
PROVIDERS: Internal Medicine Nephrology; PCP Family Medicine; Visit Provider Internal Medicine Hematology & Oncology
DX: E55.9 Vitamin D deficiency, unspecified (principal); I12.9 Hypertensive chronic kidney disease with stage 1 through stage 4 chronic kidney disease, or unspecified chronic kidney disease; N18.31 Chronic kidney disease, stage 3a; N25.81 Secondary hyperparathyroidism of renal origin
CPT/HCPCS: 36415; 80069; 82306; 82570; 83970; 84156

== ENCOUNTER 2023-12-19 09:12 | Emergency (ER) | payer MEDICARE, SELFPAY ==
[2023-12-19 09:23] VITALS: BP 139/71; PULSE 68; RESP 16; TEMP 36.1; O2SAT 96
[2023-12-19 09:24] VITALS: BP 139/71; PULSE 68; RESP 16; TEMP 36.1; O2SAT 96
--- NOTE | 2023-12-19 09:45 | ED.SKABFB ---
HPI - Skin/Abscess/Foreign Bdy General Chief complaint: Skin/Abscess/Foreign Body Stated complaint: Rash Time Seen by Provider: 12/19/23 09:46 Source: patient Mode of arrival: ambulatory Limitations: no limitations History of Present Illness HPI narrative: 73 yo F presents with c/o itchy bug bites to bilateral hands and wrists. Has been working in garden. All systems reviewed and negative except as noted above. Related Data Allergies Allergy/AdvReac Type Severity Reaction Status Date / Time nitrofurantoin AdvReac Intermediate Weakness Verified 12/19/23 09:32 Review of Systems Review of Systems: CONSTITUTIONAL: Denies fever, chills, or sweats. EYES: Denies visual changes, redness, or discharge. ENT: Denies rhinorrhea, congestion, sore throat, or otalgia. CARDIOVASCULAR: Denies chest pain, palpitations, or edema. RESPIRATORY: Denies cough or dyspnea. GASTROINTESTINAL: Denies abdominal pain, nausea, vomiting, or diarrhea. GENITOURINARY: Denies dysuria or hematuria. SKIN: Reports itchy bug bites to bilateral hands and Wrist MUSCULOSKELETAL: Denies back pain, joint pain, or myalgia. NEUROLOGIC: Denies headache, numbness, or weakness. PSYCHIATRIC: Denies anxiety or depression. All other systems reviewed are negative, except as documented in HPI. [facility] Past Medical History Medical History Diverticulitis Hyperlipidemia Left ear impacted cerumen Nephrolithiasis Skin cancer Thrombocytopenia Vitamin D deficiency Surgical History Surgical History History of cataract surgery History of local excision of skin lesion Family History Family History Sibling Diabetes mellitus Cerebrovascular accident Father Heart disease Mother Liver cancer Social History Social History Social History: Patient lives at home with her has. She is independent in her daily activities. Her primary care provider is Judi Herrera NP. She does he needs her , Asif, as her surrogate decision maker and she would like to be a full code. Smoking status: Never smoker Second hand tobacco smoke exposure: No Alcohol intake: never Alcohol use details: 6 drinks/year Substance use: never Substance use type: does not use Do You Feel Safe in your Home?: Yes Lack of Transportation: No Lack of Food: Never True Current Housing: I Have Housing Concerned About Future Housing: No Difficulty Paying Gas/Electric Bills: No Difficulty Paying for Meds: No Currently Unemployed: No Education: Associate Degree Difficulty w/ Childcare or Family Care: No Living arrangements: with family Occupation/Education: retired Gender identity (if verbalized by the patient): Female Spiritual care concerns: No Agree to blood products: Yes Comments At time of signature, agree with nursing past medical, surgical, social and family history. There is no relevant family history pertinent to the presenting complaint. Exam Narrative: GENERAL: This is a well-nourished, well-developed patient, in no apparent distress. HEAD: normocephalic, atraumatic. EYES: PERRL. Sclera clear/white. Vision is grossly intact. EARS: External ears normal NOSE: External nose normal NECK: Neck supple, non-tender without lymphadenopathy, masses or thyromegaly. CARDIOVASCULAR: Regular rate and rhythm without murmurs, gallops, or rubs. RESPIRATORY: Clear to auscultation. Breath sounds equal bilaterally. No wheezes, rales, or rhonchi. SKIN: warm, Dry, intact with, good texture and turgor. multiple erythematous papules to bilateral hands and wrists. NEURO: awake, alert, and oriented to person, place and time. There were no obvious focal neurologic abnormalities. EXTREMITIES: No joint tenderness, effusion, or edema noted. C
== END 2023-12-19 09:55 | disposition home or self-care (01) ==
PROVIDERS: Emergency Provider Nurse Practitioner Family; PCP Family Medicine
DX: S60.562A Insect bite (nonvenomous) of left hand, initial encounter (principal); S60.561A Insect bite (nonvenomous) of right hand, initial encounter; S60.862A Insect bite (nonvenomous) of left wrist, initial encounter; S60.861A Insect bite (nonvenomous) of right wrist, initial encounter; W57.XXXA Bitten or stung by nonvenomous insect and other nonvenomous arthropods, initial encounter; E78.5 Hyperlipidemia, unspecified; D69.6 Thrombocytopenia, unspecified; Z85.828 Personal history of other malignant neoplasm of skin
CPT/HCPCS: 99213; G0463

== ENCOUNTER 2024-02-09 10:50 | Outpatient (CLI) | payer MEDICARE, SELFPAY ==
[2024-02-09 12:40] LABS: Anion Gap 9 mmol/L (4-12); Blood Urea Nitrogen 19 mg/dL (7-17); Calcium 8.7 mg/dL (8.4-10.2); Carbon Dioxide 26 mmol/L (22-30); Chloride 102 mmol/L (98-107); Estimated Glomerular Filt Rate 55; Glucose 100 mg/dL (65-110); Potassium 4.1 mmol/L (3.4-5.0); Sodium 137 mmol/L (137-145)
[2024-02-09 13:01] LABS: Hemoglobin A1C 6.4 % (<5.7)
== END 2024-02-09 10:51 | disposition home or self-care (01) ==
LOC: ANHLAB 10:53
PROVIDERS: PCP Family Medicine; Visit Provider Internal Medicine Hematology & Oncology
DX: R73.03 Prediabetes (principal); N18.30 Chronic kidney disease, stage 3 unspecified
CPT/HCPCS: 36415; 80048; 83036

== ENCOUNTER 2024-04-12 11:45 | Outpatient (CLI) | payer MEDICARE, SELFPAY ==
[2024-04-12 13:56] LABS: Creatinine Urine 104.9 mg/dL
[2024-04-12 14:09] LABS: Albumin Level 4.8 g/dL (3.5-5.1); Anion Gap 8 mmol/L (4-12); Blood Urea Nitrogen 16 mg/dL (7-17); Calcium 9.4 mg/dL (8.4-10.2); Carbon Dioxide 28 mmol/L (22-30); Chloride 103 mmol/L (98-107); Estimated Glomerular Filt Rate > 60; Glucose 96 mg/dL (65-110); Phosphorus 3.1 mg/dL (2.5-4.5); Potassium 4.2 mmol/L (3.4-5.0); Sodium 139 mmol/L (137-145)
[2024-04-12 14:17] LABS: Total Protein Urine Random < 5 mg/dL; Ur Ttl Prot Creatinine Ratio < 0.05 mg/mg (0-0.20)
[2024-04-12 14:19] LABS: Parathyroid Intact 74.1 pg/mL (14.5-75.2)
[2024-04-12 19:37] LABS: Vitamin D 25 Hydroxy 41.4 ng/mL
== END 2024-04-12 11:46 | disposition home or self-care (01) ==
LOC: ANHLAB 11:46
PROVIDERS: Internal Medicine Nephrology; PCP Family Medicine; Visit Provider Internal Medicine Hematology & Oncology
DX: E55.9 Vitamin D deficiency, unspecified (principal); I12.9 Hypertensive chronic kidney disease with stage 1 through stage 4 chronic kidney disease, or unspecified chronic kidney disease; N18.31 Chronic kidney disease, stage 3a; N25.81 Secondary hyperparathyroidism of renal origin
CPT/HCPCS: 36415; 80069; 82306; 82570; 83970; 84156

== ENCOUNTER 2024-05-10 16:00 | Outpatient (CLI) | payer MEDICARE, SELFPAY ==
[2024-05-10 17:23] LABS: Hemoglobin A1C 6.1 % (<5.7)
== END 2024-05-10 16:01 | disposition home or self-care (01) ==
PROVIDERS: PCP Family Medicine; Visit Provider Internal Medicine Hematology & Oncology
DX: R73.03 Prediabetes (principal)
CPT/HCPCS: 36415; 83036

== ENCOUNTER 2024-06-21 10:48 | Outpatient (CLI) | payer MEDICARE, SELFPAY ==
[2024-06-21 11:15] LABS: Basophils Percent Auto 0.3 % (0.2-1.2); Eosinophils Absolute Auto 0.2 K/mm3 (0-0.3); Hematocrit 47.3 % (37.0-47.0); Hemoglobin 15.1 g/dL (12.0-15.0); Immature Granulocyte Absolute 0.03 K/mm3 (0.00-0.031); Immature Granulocyte Percent A 0.3 % (0-0.5); Lymphocytes Absolute Auto 1.75 K/mm3 (0.9-3.2); Mean Corpuscular HGB Conc 31.9 g/dl (32-36); Mean Corpuscular Hemoglobin 28.1 pg (26-34); Mean Corpuscular Volume 87.9 fl (80-100); Mean Platelet Volume 11.7 fl (7.4-10.4); Monocytes Absolute Auto 0.6 K/mm3 (0.1-0.6); Monocytes Percent Auto 5.8 % (2.6-8.5); Neutrophils Absolute Auto 7.2 K/mm3 (1.3-6.7); Neutrophils Percent Auto 73.6 % (45.5-73.1); Platelet Count Result 42 k/mm3 (150-375); Red Blood Count 5.38 M/mm3 (4.2-5.4); Red Cell Distribution Width 13.2 % (11.5-14.5); White Blood Count 9.7 K/mm3 (4.5-10.0)
--- OUTSIDE RECORDS SUMMARY | 2024-06-21 11:55 | XMS_ITS | Clinical Summary ---
Author Organization [facility] Medical Office Building A Address [address] [place] [address] Care Team Providers Care Utility System Repairer Name Role Phone Ottoniel Hopkins MD Primary Care Provider [phone] Allergies No known active allergies Medications losartan (COZAAR) 50 mg tablet Take 1 tablet (50 mg total) by mouth daily Active Farxiga 10 mg tablet Take 1 tablet (10 mg total) by mouth daily 02/20/2023 Active Active Problems Problem Noted Date Diagnosed Date Tachycardia, unspecified 04/04/2023 Chronic ITP (idiopathic thrombocytopenia) 2022 Morbid obesity with BMI of 45.0-49.9, adult 03/26 Mixed hyperlipidemia 04/04/2023 Resolved Problems Problem Noted Date Diagnosed Date Resolved Date 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 She will just treat these areas with a little bit of Neosporin until they heal up. Will return as needed. Assessment & Plan (12/03/2018 10:52 AM CDT): About 3 and half months s/p excision and closure with full-thickness skin graft from abdomen She continues to have an area at 3:00 o'clock with delayed healing. However this area is about 1/3 smaller than the last time I saw her. In addition there is an area at 9:00 a.m. That is dry and scabbed. I expect this to fall off on its own. Wound care instructions given. I spoke with the patient about using Vaseline on both of these areas and left she hears differently from me after I speak with Dr. Guillen. Will return in 1 month for evaluation of wound Assessment & Plan (10/26/2018 12:24 PM CDT): About 10 week s/p partial thickness skin graft from right lower abdomen to right pretibial leg after excision of a SCC Two areas of delayed healing noted. Continue with local wound care for now and return after vacation in 5 weeks or so. If these areas have not healed up in this amount of time, the patient will likely need to go to the ER for another skin graft. Wound care administered, instructions given both verbally and in written form. Will return in 5 weeks or so, after their vacation. Assessment & Plan (09/11/2018 9:41 AM CDT): Right pretibial Healing slowly with some dark slough, underlying granulation, vascular Continue with silvadene dressings Follow up in 2 weeks Assessment & Plan (09/04/2018 11:01 AM CDT): Right pretibial s/p excision with FTSG Healing well, slight erythema noted, will give antibiotics Continue once daily cleansing with soap and water, pat dry, apply silvadene, cover with bandage Wound care administered, instructions given both verbally and in written form Will return in one week Assessment & Plan (08/25/2018 1:43 PM CDT): Skin graft is dark pink/purple, vascular with large amount of blistering noted Begin silvadene to skin graft, continue with xeroform, ABD, tape Return in 1 week Assessment & Plan (08/18/2018 2:25 PM CDT): 5 days s/p full thickness skin graft from right lower abdomen to right pretibial leg after excision of a SCC Healing well, no complications or signs of infection reported or noted on exam. Wound care administered, instructions given both verbally and in written form Will return in one week Immunizations Name Administration Dates Next Due Hep A, Adult 05/29/2018,11/05/2017 Influenza, Trivalent, High D ose, Split, Preservative Free, Intramuscular 02/11/2018 Meningococcal MCV4P (Menactra) 11/05/2017 Pneumococcal Conjugate PCV 13 11/07/2017 Tdap 11/05/2017 Typhoid Inactivated 12/05/2017 ZOSTER Recombinant 04/17/2018,02/11/2018 Surgical History Surgery Date Site/Laterality Comments WISDOM TOOTH EXTRACTION Medical History Medical History Date Comments Tachycardia Obese Thrombocytopenic disorder (CMS/HCC) (HCC) Chronic kidney disease Edema Dizziness Skin cancer Family History Medical History Relation Name Comments Diabetes Brother Heart disease Brother Heart attack Father Liver cancer Mother Relation Name Status Comments Brother Father Mother Social History Tobacco Use Types Packs/Day Years Used Date Smoking Tobacco: Never Smokeless Tobacco: Never Tobacco Cessation:Counseling Given: Not Answered Alcohol Use Standard Drinks/Week Comments Never 0 (1 standard drink = 0.6 oz pur e alcohol) Humiliation, Afraid, Rape, and Kick questionnair e Answer Date Recorded Fear of Current or Ex-Partner Patient declined 0 09/04/2018 Emotionally Abused Patient declined 09/04/2018 Physically Abused Patient declined 09/04/2018 Sexually Abused Patient declined 09/04/2018 Social Connection and Isolation Panel [NHANES] A nswer Date Recorded Frequency of Communication with Friends and Fami ly Patient declined 09/04/2018 Frequency of Social Gatherings with Friends and Family Patient declined 09/04/2018 Attends [employer] Services Patient declined 08/24 Active Member of Clubs or Organizations Patient declined 09/04/2018 Attends Club or Organization Meetings Patient de clined 09/04/2018 Marital Status Patient declined 09/04/2018 AUDIT-C Answer Date Recorded Frequency of Alcohol Consumption Never 09/04/2018 Average Number of Drinks Not on file 019 Frequency of Binge Drinking Not on file 08/24 Overall Financial Resource Strain (CARDIA) Answe r Date Recorded Difficulty of Paying Living Expenses Patient dec lined 09/04/2018 [facility] - Occupational Stress Questionnaire Answer Date Recorded Feeling of Stress Patient declined 09/04/2018 Exercise Vital Sign Answer Date Recorde d Days of Exercise per Week Patient declined 09/04 Minutes of Exercise per Session Patient declined 09/04/2018 Hunger Vital Sign Answer Date Recorded Worried About Running Out of Food in the Last Ye ar Patient declined 09/04/2018 Ran Out of Food in the Last Year Patient decline d 09/04/2018 PRAPARE - Transportation Answer Date Re corded Lack of Transportation (Medical) Patient decline d 09/04/2018 Lack of Transportation (Non-Medical) Patient dec lined 09/04/2018 Comments Unknown Sex and Gender Information Value Date Recorded Sex Assigned at Not on file Legal Sex Female 11:25 AM ANODE BUILDER Gender Identity Not on file Sexual Orientation Not on file Obstetrics History Last Filed Vital Signs Vital Sign Reading Time Taken Comments Blood Pressure 126/84 10/21/2023 10:45 AM CDT Pulse 140 10/21/2023 10:45 AM CDT Temperature - - Respiratory Rate - - Oxygen Saturation 93% 10/21/2023 10: 45 AM CDT Inhaled Oxygen Concentration - - Weight 120.4 kg (265 lb 6.4 oz) 023 10:35 AM ANODE BUILDER Height 157.5 cm (5' 2 ) 04/04/2023 10:3 5 AM ANODE BUILDER Body Mass Index 48.54 04/04/2023 10:35 AM ANODE BUILDER Plan of Treatment Health Maintenance Due Date Last Done Comments Colon Cancer Screening-Colonoscopy 1950 Depression Screening 1950 Fall Risk Assessment 1950 Hepatitis C Screening 1950 Osteoporosis Screening-Bone Density Scan 1950 Well Visit 65+ 2016 Pneumococcal vaccine 65+ (2 of 2 - PPSV23 or PCV20) 11/07/2018 11/07/2017 Breast Cancer Screening-Mammogram 05/07/2023 022 Covid-19 Vaccine (2023-2 5 season) 2024 02/25/2023, 03/12/2022, 10/26/2021, Additional history exists Influenza Vaccine (#1) 2024 , 01/31/2022, 02/08/2021, Additional history exists DTaP/Tdap/Td Vaccine (3 - Td or Tdap) 06/05/2031 06/05/2021, 11/05/2017 Zoster Vaccine Completed 04/17/2018, 01/24, 04/08/2013 Insurance [facility] Address: [place] [address] [facility] Address: [place] [address] MEDICARE SOLUTIONS Care Teams Utility System Repairer Relationship Specialty Start Date End Date Ottoniel Hopkins MD [address] [id number] PCP - General Family Medicine 10/21/23
--- OUTSIDE RECORDS SUMMARY | 2024-06-21 11:55 | XMS_ITS | CONTINUITY OF CARE DOCUMENT ---
Author Name alex johnson Address Unknown Organization [facility] Address [address] [place] [address] [address] [place] [address] Phone [phone] Care Team Providers Care Heavy Equipment Plumbing Supervisor Name Role Phone Jef Ann MD Unavailable [phone] Jef Ann MD Unavailable [phone] Sharon HOOKERP-BCJudi Unavailable [phone] INSURANCE PROVIDERS Payer name Policy type / Coverage type [place] red green party ID AARP MEDICARE ADVANTAGE ([facility] COMPLETE PPO) Other [id number]
--- OUTSIDE RECORDS SUMMARY | 2024-06-21 11:56 | XMS_ITS | Clinical Summary ---
Author Organization [facility] Address [address] [place] [address] Care Team Providers Care Change Director Name Role Phone Ottoniel Hopkins MD Primary Care Provider [phone] Allergies Active Allergy Reactions Criticality Noted Date Comments Sulfamethoxazole-Trimethoprim Constipation Low 12/2021 Medications losartan (COZAAR) 50 mg tablet Take 50 mg by mouth daily. Active dapagliflozin propanediol (Farxiga) 10 mg Tablet Take by mouth daily. Active Active Problems Problem Noted Date Diagnosed Date Acute idiopathic thrombocytopenic purpura 2021 Encounters Date Type Department Care Team Description 06/16/2024 External Device Data ST[facility] ABSTRACTION Provider, Abstract 06/16/2024 External Device Data [facility] ABSTRACTION Provider, Abstract 05/11/2024 Orders Only [facility] Oncology and Hematology - [place] [address] [place] [address] Scanning, Provider 04/14/2024 Orders Only [facility]ology - [place] [address] [place] [id number] Dominic Squires MD 03/24/2024 External Device Data ST[facility] ABSTRACTION Provider, Abstract from Last 3 Months Social History Tobacco Use Types Packs/Day Years Used Date Smoking Tobacco: Never Smokeless Tobacco: Never Tobacco Cessation:Counseling Given: Not Answered Alcohol Use Standard Drinks/Week Comments Yes 0 (1 standard drink = 0.6 oz pur e alcohol) Comments Unknown Sex and Gender Information Value Date Recorded Sex Assigned at Not on file Legal Sex Female 10:36 AM PLAYER PIANO TECHNICIAN Gender Identity Not on file Sexual Orientation Not on file Last Filed Vital Signs Vital Sign Reading Time Taken Comments Blood Pressure 135/81 10/29/2023 10:10 AM CDT Pulse 70 10/29/2023 10:10 AM CDT Temperature 36 ??C (96.8 ??F) 10/29/2023 10:10 AM CDT Respiratory Rate 14 10/29/2023 10:10 AM CDT Oxygen Saturation 95% 10/29/2023 10:10 AM CDT Inhaled Oxygen Concentration - - Weight 116.1 kg (256 lb) 10/29/2023 10:10 AM CDT Height 157.5 cm (5' 2 ) 03/05/2022 8:51 AM CDT Body Mass Index 46.82 03/05/2022 8:51 AM CDT Plan of Treatment Upcoming Encounters Date Type Department Care Team (Late st Contact Info) Description 06/30/2024 3:30 PM PLAYER PIANO TECHNICIAN Office Visit [facility] Oncology and Hematology [facility] [address] [facility] [address] [place] [address] Dominic Squires MD [address] [facility] [address] [place] [address] Health Maintenance Due Date Last Done Comments BREAST CANCER SCREENING 1991 COLORECTAL SCREENING 1996 Colorectal Cancer Screening 1996 FIT-DNA Q 3 years 1996 FIT/FOBT Q 1 year 1996 Flex Sig/CT Colonography Q 5 years 1996 RSV VACCINE (60+ or ) (1 - Risk 60-74 years 1-dose series) 2011 OSTEOPOROSIS SCREENING 2016 PNEUMOCOCCAL VACCINE 65+ YEA RS (2 of 2 - PPSV23) 11/07/2018 11/07/2017 INFLUENZA VACCINE (#1) 2023 3, 01/31/2022, 02/13/2021, Additional history exists Medicare Advantage ([place]) Preventative Visit/Annual Wellness Visit 05/26/2024 DTAP/TDAP/TD VACCINES (2 - T d or Tdap) 11/06/2027 11/05/2017 ZOSTER VACCINE Completed 04/17/2018, 02/11/2018 Procedures Procedure Name Priority Date/Time Associated Diagnosis Comments HEMOGLOBIN A1C Routine 05/10/2024 12:54 PM PLAYER PIANO TECHNICIAN VITAMIN D 25 HYDROXY Routine 04/12/2024 2:04 PM PLAYER PIANO TECHNICIAN BASIC METABOLIC PANEL Routine 04/12/2024 12:45 PM PLAYER PIANO TECHNICIAN from Last 3 Months Results * HEMOGLOBIN A1C (05/10/2024 12:54 PM PLAYER PIANO TECHNICIAN) Blood us Provider Scanning CHEMISTRY ORDERABLES Final Res ult * VITAMIN D 25 HYDROXY (04/12/2024 2:04 PM PLAYER PIANO TECHNICIAN) Blood us Provider Scanning CHEMISTRY ORDERABLES Final Res ult * BASIC METABOLIC PANEL (04/12/2024 12:45 PM PLAYER PIANO TECHNICIAN) Blood Dominic Squires MD CHEMISTRY ORDERABLES Final Resu lt from Last 3 Months Insurance [facility] [id number] RX [employer] RX Member Subscriber Plan / Payer (Ef fective 2022-Present) Name:Cathy Torres Relation to Subscriber:Self Name:Cathy Torres Payer ID:Not on file Group ID:[id number] Type:RX Medicare Part D Address: [place] Care Teams Change Director Relationship Specialty Start Date End Date Ottoniel Hopkins MD [address] [place] [address] PCP - General Family Practice 10/29/23
--- OUTSIDE RECORDS SUMMARY | 2024-06-21 11:56 | XMS_ITS | Referral Summary ---
Author Organization [facility] Medical Office Building A Address [address] [place] [address] Care Team Providers Care Grant Officer Name Role Phone Ottoniel Hopkins MD Primary Care Provider [phone] Allergies No known active allergies Medications losartan [...] 11/05/2017 Typhoid Inactivated 12/05/2017 ZOSTER Recombinant 04/17/2018,02/11/2018 Social History Tobacco Use Types Packs/Day Years [...] Friends and Family Patient declined 09/04/2018 Attends Anab[employer]ism Services Patient declined 08/24 Active Member of [...] Paying Living Expenses Patient dec lined 09/04/2018 [facility] [place] of Occupat ional Health - Occupational Stress [...] on file Legal Sex Female 11:25 AM COTTON MACHINE OPERATOR Gender Identity Not on file Sexual Orientation Not on file Last Filed Vital Signs Vital Sign Reading Time Taken Comments Blood Pressure 126/84 10/21/2023 10:45 AM CDT Pulse 140 10/21/2023 10:45 AM CDT Temperature - - Respiratory Rate - - Oxygen Saturation 93% 10/21/2023 10: 45 AM CDT Inhaled Oxygen Concentration - - Weight 120.4 kg (265 lb 6.4 oz) 023 10:35 AM COTTON MACHINE OPERATOR Height 157.5 cm (5' 2 ) 04/04/2023 10:3 5 AM COTTON MACHINE OPERATOR Body Mass Index 48.54 04/04/2023 10:35 AM COTTON MACHINE OPERATOR Plan of Treatment Not on file [facility] HMO REF MEDICARE SOLUTIONS Care Teams Grant Officer Relationship Specialty Start Date End Date Ottoniel Hopkins MD [address] [address] PCP - General Family Medicine 10/21/23
--- OUTSIDE RECORDS SUMMARY | 2024-06-21 11:56 | XMS_ITS | Data Portability ---
Author Organization [facility], Main Office Address [address] [place] [address] Care Team Providers Care Scrap Kettle Tender Name Role Phone OTTONIEL HOPKINS Primary Care Provider [phone] OTTONIEL HOPKINS Referring Provider [phone] OTTONIEL HOPKINS Primary Care Provider Assessment Encounter Date Assessment Date Assessment LastModified by Organization Details LastModified Time 10/14/2023 10/14/2023 73 yo F with - PRE-DM, new - HTN - CKD III - HLD - H/O KIDNEY STONE - MORBID OBESITY III HbA1c: 6.2(10/06/23) Annual labs: 10/06/23. Wt: 262(10/14/23) D/w pt about her findings, recent labs & imagines and further plan of care. MAWV questionnaire reviewed with pt. Answered all questions and concerns for the pt. Fall risk precautions explained. Advised pt to talk with her Cardio before starting Phentermine and about her fast heart rate. Pt declined for Metformin at this time. Meds as directed. Diet and exercise explained in detail. Cont f/u with Cardio as per schedule. Cont f/u with Uro as per schedule. Cont f/u with Ophtho as per schedule. Cont f/u with Derm as per schedule. HM: WWE - 15 yrs ago, normal as per pt. Pt declined. Mammo - Ordered. DEXA - Ordered. Colonoscopy - 18 yrs ago. Pt declined. Cologuard ordered. Flu - 02/15. Tdap - 2021. Pneumo - Pt got it. Shingrix - Pt got it. F/u in 2 months. A1c in 01/16. Annual labs in 10/17. [email or web address] Not available 10/14/2023 16:24:31 12/16/2023 12/16/2023 73 yo F with - PRE-DM, new - HTN - CKD III - HLD - H/O KIDNEY STONE - MORBID OBESITY III HbA1c: 6.2(10/06/23) CXR: 10/21/23. Annual labs: 10/06/23. D/w pt about her findings, recent labs & imagines and further plan of care. Advised pt to talk with her Cardio about her meds too. Pt declined for Metformin at this time. Meds as directed. Diet and exercise explained in detail. BP diary education given. Cont f/u with Cardio as per schedule. Cont f/u with Uro as per schedule. Cont f/u with Ophtho as per schedule. Cont f/u with Derm as per schedule. Pt did not take Phentermine. HM: WWE - 15 yrs ago, normal as per pt. Pt declined. Mammo - 11/03/23, normal. DEXA - 11/03/23, normal. Colonoscopy - 18 yrs ago. Pt declined. Cologuard 10/14/23, neg. Flu - 02/15. Tdap - 2021. Pneumo - Pt got it. Shingrix - Pt got it. F/u in 2 months. A1c, BMP in 01/16. Annual labs in 10/17. [email or web address] Not available 12/16/2023 10:11:24 02/16/2024 02/16/2024 73 yo F with - PRE-DM, uncontrolled - HTN (diet controlled) - CKD III, improved - HLD - H/O KIDNEY STONE - MORBID OBESITY III HbA1c: 6.2(10/06/23) - 6.4(02/09/24) CXR: 10/21/23. Annual labs: 10/06/23. D/w pt about her findings, recent labs & imagines and further plan of care. Advised pt to talk with her Cardio about her meds too. Pt still declined for Metformin. Meds as directed. Diet and exercise explained in detail. BP diary education given. Cont f/u with Cardio as per schedule. Cont f/u with Uro as per schedule. Cont f/u with Ophtho as per schedule. Cont f/u with Derm as per schedule. Pt did not take Phentermine. HM: WWE - 15 yrs ago, normal as per pt. Pt declined. Mammo - 11/03/23, normal. DEXA - 11/03/23, normal. Colonoscopy - 18 yrs ago. Pt declined. Cologuard 10/14/23, neg. Flu - 02/15. Tdap - 2021. Pneumo - Pt got it. Shingrix - Pt got it. F/u in 3 months. A1c in 05/18. Annual labs in 10/17. [email or web address] Not available 02/16/2024 09:33:52 05/17/2024 05/17/2024 74 yo F with - PRE-DM, improved - HTN (diet controlled) - CKD III, improved - HLD - H/O KIDNEY STONE - MORBID OBESITY III HbA1c: 6.2(10/06/23) - 6.4(02/09/24) - 6.1(05/10/24) CXR: 10/21/23. Annual labs: 10/06/23. D/w pt about her findings, recent labs & imagines and further plan of care. Advised pt to talk with her Cardio about her meds too. Pt still declined for Metformin. Meds as directed. Diet and exercise explained in detail. BP diary education given. Cont f/u with Nephro as per schedule. Cont f/u with Cardio as per schedule. Cont f/u with Uro as per schedule. Cont f/u with Ophtho as per schedule. Cont f/u with Derm as per schedule. Pt did not take Phentermine. HM: WWE - 15 yrs ago, normal as per pt. Pt declined. Mammo - 11/03/23, normal. DEXA - 11/03/23, normal. Colonoscopy - 18 yrs ago. Pt declined. Cologuard 10/14/23, neg. Flu - 02/16. Tdap - 2021. Pneumo - Pt got it. Shingrix - Pt got it. F/u in 5 months. Annual labs in 10/17. [email or web address] Not available 05/17/2024 10:03:33 06/10/2024 06/10/2024 Explained about different options for her. [email or web address] Not available 06/10/2024 15:35:40 Plan of Treatment Reminders Order Date Submit Date Provider Last Modified By Organization Details Last Modified Time Details Appointments Any 15 2024 10:15A M Alexey Levine MD Not available Not available Not available Physical/ Annual Wellness 30 2024 09:00A Janneth Hopkins MD Not available Not available Not available Lab glycohemo globin, total, blood [address] (Lab), [address] [place], [address], 01/05/2024 08:03:27 BMP, serum or plasma [address] (Lab), [address] [place], [address], 01/05/2024 08:03:27 glycohemo globin, total, blood 2023 024 [facility] (Lab), [address] [place], [address], 05/11/2024 05:04:16 urinalysi s, dipstick 2024 025 [facility], [address] [facility], [place], [address], 06/10/2024 15:44:13 Referral urologist referral - Please call patient to schedule an appointme nt. Thank you. 2024 025 [facility], [facility] [address], [place], [address], 06/10/2024 17:40:44 Procedures None recorded. Surgeries None recorded. Imaging None recorded. Medication Orders losartan 50 mg tablet 2023 024 [id number], [address] [facility], [place], [place], [id number], 02/16/2024 09:28:35 Farxiga 10 mg tablet 2023 024 [email or web address] [facility] #[id number], [address] [facility], [place], [place], [id number], 05/17/2024 09:46:19 phentermi ne 15 mg capsule 2023 024 [email or web address] [facility] #[id number], [address] [facility], [place], [place], [id number], 12/16/2023 10:01:11 Farxiga 10 mg tablet 2023 024 FLAKO [facility] #[id number], [address] [facility], [place], [place], [id number], 05/17/2024 09:53:39 Patient TargetsNo targets recorded. Patient Instructions Encounter Date Encounter Id Patient Instructions Last Modified By Organization Details Last Modified Time 10/14/2023 [id number] dementia rating scale-2* FLAKO Not available 10/14/2023 16:59:03 multi-dimensiona l health assessment questionnaire* FLAKO Not available 10/14/2023 16:58:54 care plan* FLAKO Not available 10/13 16:58:46 advance directiv es: care instructions Not available 10/14/2023 15:33:54 advance care planning: care instructions [email or web address] Not available 10/14/2023 15:33:54 [place] Advance Directives [email or web address] Not available 10/14/2023 15:33:54 Personalized [facility] lt Plan and Screening Recommendations Advance Directives - Do you have one? Yes Advance Directives - Do we have your advance directive on file in your health record? Primary Prevention/Interven tion (prevents or decreases the chance of common diseases from occurring) Smoking Risk: Non Smoker Alcohol Misuse Screening: Negative Weight: Appropriate Overwei ght continue your current weight loss efforts try to lose 5% of your body weight try to lose 10% of your body weight Physical activity: minimum of 10-20 minutes of activity that causes mild breathlessness/day minimum of 20-30 minutes activity that causes mild breathlessness/day Nutrition: Good Average Fall Risk (screened today): Low Vaccines Pneumococcal: Ordered Recommended today Recommended today, but you have declined No further needed Influenza: Chronic Disease Risks Stroke: Low Risk Intermediate Risk I have no recommendations Act anayeli diagnosis, Continue current treatment plan Heart Attack: Low risk Intermediate Risk I have no recommendations Act anayeli diagnosis, Continue current treatment plan Clogging of the Arteries: Low risk Intermediate Risk I have no recommendations Act anayeli diagnosis, Continue current treatment plan Diabetes: Low Risk Secondary Prevention/Interven tion (detects treatable diseases before they may cause symptoms, disability, or ) Breast Cancer Screening with mammogram: Your next mammogram: Ordered Recommended today Cervical/Uterine/Ov froy Cancer Screening: Your next PAP/pelvic in: Referral to emergency department director Recomm ended today Osteoporosis Screening: Your next DEXA in: Ordered Recomme nded today Date Screening Last Performed: Colon Cancer Screening: Colonoscopy In: Ordered Recomme nded Recommended today, but you have declined Date Screening Last Performed: Eye Disease Screening: Ordered Recommended today Dementia Risk: Low I have no recommendations Depression Screening: Negative [email or web address] Not available 10/14/2023 16:18:06 12/16/2023 [id number] high blood pressure: care instructions [email or web address] Not available 12/16/2023 10:09:00 When You Want to Lose Weight: Care Instructions [email or web address] Not available 12/16/2023 10:09:07 02/16/2024 [id number] high blood pressure: care instructions [email or web address] Not available 02/16/2024 09:28:58 When You Want to Lose Weight: Care Instructions [email or web address] Not available 02/16/2024 09:28:58 05/17/2024 [id number] high blood pressure: care instructions [email or web address] Not available 05/17/2024 09:52:21 prediabetes: car e instructions [email or web address] Not available 05/17/2024 09:52:21 When You Want to Lose Weight: Care Instructions [email or web address] Not available 05/17/2024 09:52:21 Reason for Referral Urologist Referral for Urge incontinence of urine Please call patient to schedule an appointment. Thank you. Referring Physician: Ottoniel Hopkins, Family Medicine, Encounter Date: 06/10/2024 Results Created Date Observation Date Name Description Value Unit Range Abnormal Flag Note LastModifiedBy Organization Detail LastModifiedTime 09/25/19 24 09/25/2023 urina lysis , dipst ick Leukocytes (reference range: negative marcia/??l) Large Not Available [address], [address], 09/25/2023 15:59:29 09/25/19 24 09/25/2023 urina lysis , dipst ick Nitrite (reference rage: negative mg/dl) positi ve Not Available [address], [address], 09/25/2023 15:59:29 09/25/19 24 09/25/2023 urina lysis , dipst ick Urobilinogen (reference range: 0.2-1 mg/dl) 0.2 Not Available [address], [address], 09/25/2023 15:59:29 09/25/19 24 09/25/2023 urina lysis , dipst ick Protein (reference range: negative mg/dl) Trace Not Available [address], [address], 09/25/2023 15:59:29 09/25/19 24 09/25/2023 urina lysis , dipst ick pH (reference range: 5-7) 8.0 Not Available [address], [address], 09/25/2023 15:59:29 09/25/19 24 09/25/2023 urina lysis , dipst ick Blood (reference range: negative Fidel/??l) Small Not Available [address], [address], 09/25/2023 15:59:29 09/25/19 24 09/25/2023 urina lysis , dipst ick Specific [place] (reference range: 1.005-1.030) 1.010 Not Available [address], [address], 09/25/2023 15:59:29 09/25/19 24 09/25/2023 urina lysis , dipst ick Ketone (reference range: negative mg/dl) Trace Not Available [address], [address], 09/25/2023 15:59:29 09/25/19 24 09/25/2023 urina lysis , dipst ick Bilirubin (reference range: negative mg/dl) Small Not Available [address], [address], 09/25/2023 15:59:29 09/25/19 24 09/25/2023 urina lysis , dipst ick Glucose (reference range: negative mg/dl) Negati ve Not Available [address], [address], 09/25/2023 15:59:29 09/25/19 24 09/25/2023 urina lysis , dipst ick Appearance Slight ly Cloudy Not Available [address], [address], 09/25/2023 15:59:29 09/25/19 24 09/25/2023 urina lysis , dipst ick Color Dark Yellow Not Available [address], [address], 09/25/2023 15:59:29 10/14/19 24 10/14/2023 COLOG UARD cologuard result reportable NEGATI VE negati ve normal NEGAT ANAYELI TEST RESUL T. A negat anayeli Colog uard resul t indic ates a low likel ihood that a color ectal cance r (CRC) or advan mansi adeno ma (essie omato us polyp s with more advan mansi pre-m align ant featu res) is prese nt. The [facility] e that a perso n with a negat anayeli Colog uard test has a color ectal cance r is less than 1 in 1500 (nega tive predi ctive value >99.9 %) or has an advan mansi adeno ma is less than 5.3% (nega tive predi ctive value 94.7% ). These data are based on a prosp ectiv e cross -sect ional study of ,00 0 indiv idual s at [facility] risk for color ectal cance r who were scree amber with both Colog uard and colon oscop y. (Igor Florence et al, N Engl J Med 2014; 370(1 4):12 86-12 97) The ruiz l value (refe rence range ) for this assay is negat anayeli. COLOG UARD RE-SC REENI NG RECOM MENDA TION: Perio dic color ectal cance r scree taylor is an impor tant part of preve ntive healt hcare for asymp tomat ic indiv idual s at ramer ge risk for color ectal cance r. Follo wing a negat anayeli Colog uard resul t, the Ameri can Cance r Socie ty and U.S. Multi -Soci ety Task Force scree taylor guide lines recom mend a Colog uard re-sc reeni ng inter michael of 3 years . Refer ences : Ameri can Cance r Socie ty Guide line for Color ectal Cance r Scree taylor: https ://maría w.can cer.o rg/ca ncer/ colon -rect al-ca ncer/ detec tion- diagn osis- stagi ng/ac s-rec ommen datio ns.nicola ml.; Mejia SANDOVAL, Adams RAM, Jake CARSON, Color ectal Cance r Scree taylor: Recom menda tions for Physi cians and Patie nts from the U.S. Multi -Soci ety Task Force on Color ectal Cance r Scree Luis vazquez y 2017; 112:1 016-1 030. TEST DESCR IPTIO N: [place] site algor ithmi c sher sis of stool DNA-b iomar kers with hemog lobin immun oassa y. Quant itati ve value s of indiv idual bioma rkers are not repor table and are not assoc iated with indiv idual bioma rker resul t refer ence range s. Colog uard is inten ded for color ectal cance r scree taylor of adult s of eithe r sex, 45 years or older , who are at the medical center for color ectal cance r (CRC) . Colog uard has been appro priscilla for use by the U.S. FDA. The perfo rmanc e of Colog uard was estab lishe d in a cross secti onal study of the medical center adult s aged 50-84 . Colog uard perfo rmanc e in patie nts ages 45 to 49 years was estim ated by sub-g roup sher sis of near- age group s. Colon oscop ies perfo rmed for a posit anayeli resul t may find as the most clini moises signi ulisses t lesio n: color ectal cance r [4.0% ], advan mansi adeno ma (incl uding sessi le tyler evon polyp s great er than or equal to 1cm diame ter) [20%] or non- advan mansi adeno ma [31%] ; or no color ectal neopl carson [45%] . These estim ates are deriv ed from a prosp ectiv e cross -sect ional scree taylor study of 10,00 0 indiv idual s at [facility] risk for color ectal cance r who were scree amber with both Colog uard and colon oscop y. (Igor Florence et al, N Engl J Med 2014; 370(1 4):12 86-12 97.) Colog uard may produ ce a false negat anayeli or false posit anayeli resul t (no color ectal cance r or preca ncero us polyp prese nt at colon oscop y follo w up). A negat anayeli Colog uard test resul t does not guara ntee the absen ce of CRC or advan mansi adeno ma (pre- cance r). The curre nt Colog uard scree taylor inter michael is every 3 years . (Amer ican Cance r Socie ty and U.S. Multi -Soci ety Task Force ). Colog uard perfo rmanc e data in a 10,00 0 patie nt pivot al study using colon oscop y as the refer ence metho d can be acces sed at the follo wing locat ion: www.e xactl abs.c om/re sulfloridalma . Addit ional descr iptio n of the Colog uard test proce ss, warni ngs and preca ution s can be found at www.c isamar evin.c om. Not Available [employer] (Cologuard Orders Only) [address], [place], [address], 10/21/2023 20:50:02 06/10/19 25 06/10/2024 urina lysis , dipst ick Leukocytes (reference range: negative marcia/??l) Negati ve Not Available [address], [address], 06/10/2024 15:25:06 06/10/19 25 06/10/2024 urina lysis , dipst ick Nitrite (reference rage: negative mg/dl) negati ve Not Available [address], [address], 06/10/2024 15:25:06 06/10/19 25 06/10/2024 urina lysis , dipst ick Urobilinogen (reference range: 0.2-1 mg/dl) 0.2 Not Available [address], [address], 06/10/2024 15:25:06 06/10/19 25 06/10/2024 urina lysis , dipst ick Protein (reference range: negative mg/dl) Negati ve Not Available [address], [address], 06/10/2024 15:25:06 06/10/19 25 06/10/2024 urina lysis , dipst ick pH (reference range: 5-7) 6.0 Not Available [address], [address], 06/10/2024 15:25:06 06/10/19 25 06/10/2024 urina lysis , dipst ick Blood (reference range: negative Fidel/??l) Modera te Not Available [address], [address], 06/10/2024 15:25:06 06/10/19 25 06/10/2024 urina lysis , dipst ick Specific [place] (reference range: 1.005-1.030) 1.015 Not Available [address], [address], 06/10/2024 15:25:06 06/10/19 25 06/10/2024 urina lysis , dipst ick Ketone (reference range: negative mg/dl) Negati ve Not Available [address], [address], 06/10/2024 15:25:06 06/10/19 25 06/10/2024 urina lysis , dipst ick Bilirubin (reference range: negative mg/dl) Negati ve Not Available [address], [address], 06/10/2024 15:25:06 06/10/19 25 06/10/2024 urina lysis , dipst ick Glucose (reference range: negative mg/dl) 500 Not Available [address], [place], [address], 06/10/2024 15:25:06 06/10/19 25 06/10/2024 urina lysis , dipst ick Appearance Slight ly Cloudy Not Available [address], [address], 06/10/2024 15:25:06 06/10/19 25 06/10/2024 urina lysis , dipst ick Color Yellow Not Available [address], [address], 06/10/2024 15:25:06 10/21/19 24 10/21/2023 XR, chest , 2 view No observ ation record ed. [email or web address] [facility] [address], [place], [address], 12/16/2023 09:57:19 11/03/19 24 MAMMO , scree taylor, digit al, bilat eral [facility] [address] [address] Patien t Name: MICHELLE PURVIS [facility]ING[facility]ta [facility] Access ion #: [id number] Sex: F : 1949 4 6 Dictat ed By: Shanta Castelan Attend ing Physic aldo: MARYSOL HOPKINS Physic aldo: MARYSOL HOPKINS Exam Date: 2023 15:26 PM Exam Name: MG DIGITA L LENNIE BILAT SCREEN Admitt ing Diagno sis(es ): CLINIC AL HISTOR Y: screen ing mammog bhavani COMPAR DOT STUDY: 2022; 2021 TECHNI QUE: Using a full field digita l 2D mammog azalea unit CC and MLO views of both breast s are perfor med. FINDIN GS: BREAST COMPOS ITION: There are scatte red areas of fibrog landul ar densit y in the bilate ral breast s. No suspic ious masses , ricky ectura l distor tion, asymme tries or suspic ious calcif icatio ns in both breast s. IMPRES MIRI: No eviden ce of malign bob. Recomm end annual mammog bhavani. BIRADS : 1 - Negati ve Electr onical ly Signed by: Shanta Castelan at 2023 16:21: [address] [facility] (Imaging) [address] [place], [address], 12/16/2023 09:57:18 11/03/19 24 DEXA, axial skele ton [facility] [address] [place] [address] Patien t Name: SEB VILLALPANDO [facility] Access ion #: [id number] Sex: F : 1949 4 6 Dictat ed By: Shanta Castelan Attend ing Physic aldo: MARYSOL HOPKINS [facility] beny Physic aldo: MARYSOL HOPKINS Exam Date: 2023 15:26 PM Exam Name: XR DEXA AXIAL/ HIP/PE LVIS/S PINE Admitt ing Diagno sis(es ): INDICA TION: 73 years old, Female ; screen ing for osteop orosis . Postme nopaus al. DEXA SCAN: BONE DENSIT Y REPORT : AP SPINE (L1-L4 ) : T Score: 3.1 LEFT FEMORA L NECK : T Score: -0.2 RT FEMORA L NECK : T Score: -0.4 LEFT HIP TOTAL : T Score: 2.5 RT HIP TOTAL : T Score: 1.7 TOTAL BILAT HIP AVG: T Score: 2.1 10 YEAR FRACTU RE RISK* Not provid ed. IMPRES MIRI: 1. Normal bone minera l densit y of the left femora l neck. 2. Normal bone minera l densit y of the right hip. ------ ------ ------ ------ ------ ------ ------ ------ ----- *FRAX versio n 3.08. Fractu re probab ility calcul ated for an untrea evon patien t. Fractu re probab ility may be lower if the patien t has receiv ed treatm ent. Page 1 [facility] [address] [place] [address] Patimichael leyva Name: JUSTIN [facility] Access ion #: [id number] Sex: F : 1949 4 6 Dictat ed By: Shanta Castelan Attend ing Physic aldo: JESUS PETIT Physic aldo: MARYSOL HOPKINS Exam Date: 2023 15:26 PM Exam Name: XR DEXA AXIAL/ HIP/PE LVIS/S ADOLFO [place] ing Diagno sis(es ): T-scor e: compar dot by zia smith deviat ion (SD) to a young adult popula tion, matche d for sex and ethnic ity (used for postme nopaus al women and men >50 years) and classi fied by WHO criter ia. -1.0: normal <-1.0 to >-2.5: osteop enia -2.5: osteop orosis -2.5 plus fragil ity fractu re: severe osteop orosis Z-scor e: compar ed by SD to an age, sex, and ethnic ity popula tion (used for premen opausa l women, men <50 years, and childr en instea d of T-scor e WHO criter ia 4) <-2.0: below expect ed range/ low bone densit y for age, and a cause should be sought Electr onical ly Signed by: Shanta Castelan at 2023 16:22: 33 PM Page [email or web address] [facility] ([facility]) [address] [place], [address], 12/16/2023 09:57:18 Result Notes None recorded. Problems Name Problem SNOMED Code Status Onset Date Resolution Date Notes Provider Name and Address Organization Details Recorded Time Menopause present 320487304 Active Not Available [facility] 3 16:30:16 Thrombocytope avis disorder 351897576 Active 2021 Not Available [facility] 3 16:30:17 Candidal vulvovaginiti s 73792390 Active 2021 Not Available [facility] 3 16:30:17 Kidney stone 13240520 Active 2022 Ruthann rao, [place] [facility] [employer] 3 11:27:55 Tachycardia 5663385 Active 2022 Judi Herrera NP [address], [place], [address] , [facility] [employer] 3 15:31:18 Chronic kidney disease stage 3 381853676 Active 2022 Judi Herrera NP [address], [place], [address] , [facility] 3 10:07:46 Hyperlipidemi a 24032934 Active 2023 Ottoniel Hopkins MD [address], [place], [address] , [facility] 4 14:23:55 Hypertensive disorder 54440457 Active 2023 Ottoniel Hopkins MD [address], [place], [address] , [facility] 4 15:25:48 Morbid obesity 880906201 Active 2023 Ottoniel Hopkins MD [address], [place], [address] , [facility] [employer] [facility] 4 15:25:59 Dysuria 61018957 Active 2023 Ottoniel Hopkins MD [address] [facility], [address], [address] , [facility] [employer] [facility] 4 15:59:24 Prediabetes 560919008 Active 2023 Ottoniel Hopkins MD [address] [facility], [address], [address] , [facility] [employer] [facility] 4 15:30:04 Urge incontinence of urine 11084395 Active 2024 Ottoniel Hopkins MD [address] [facility], [address], [address] , [facility] [employer] [facility] 5 15:27:04 Overactive urinary bladder 600024100 Active 2024 Ottoniel Hopkins MD [address] [facility], [address], [address] , [facility] [employer] [facility] 5 15:55:35 Notes:skin cancer; lower rt leg Problem Notes None recorded. Procedures Surgical History Date Name Laterality Status Provider Name and Address Organization Details Recorded Time 4 Medicare Wellness CPT Code, subsequent completed Ralu Mackey [facility] [employer] [facility] 10/14/2023 15:11:40 2 Most Recent Mammogram completed Judi Perdomo RN [facility] [employer] [facility] 09/06/2022 09:39:30 Skin Graft completed Not Available [facility] 07/24/2022 16:29:33 Cataract Surgery completed Not Available [facility] 07/24/2022 16:29:33 Imaging Results Imaging Date Name Status LastModified by Organiz ation Details LastModified Time 10/21/2023 XR, chest, 2 view completed [id number] [facility] [address], [address], 12/16/2023 09:57:19 11/03/2023 MAMMO, screening, digital, bilateral completed [address] (Imaging) [address] [place], [address], 12/16/2023 09:57:18 11/03/2023 DEXA, axial skeleton completed [email or web address] [facility] (Imaging) [address] [place], [address], 12/16/2023 09:57:18 Procedure Notes None recorded. Medical Equipment None Reported. Allergies Allergen ID Allergen Name Allergen Category Reaction Reaction Severity Criticality Documentation Date Start Date Code Code System Note Provider Name and Address Organization Details Recorded Time 86148 Bactrim medicatio n Not available Not available Not available 07/24/2022 12017 9 RxNorm Not Available [facility] 16:31:40 Medications Name Sig Start Date Stop Date Status Note LastModified by Organization Details LastModified Time losartan 50 mg tablet TAKE 1 TABLET BY MOUTH EVERY DAY 02/15 completed Not Available Not Available Not Available prednison e 10 mg tablet TAKE 60MG TWICE DAILY. TAPER BY 10MG EVERY THIRD DAY. 11/01 completed Not Available Not Available Not Available fluconazo le 150 mg tablet TAKE 1 TABLET BY MOUTH EVERY DAY FOR 1 DAY DIRECTED 09/24 completed Not Available Not Available Not Available phenazopy ridine 200 mg tablet Take 1 tablet every 8 hours by oral route as needed for 5 days. 09/06 completed Not Available Not Available Not Available propranol ol ER 60 mg capsule,2 4 hr,extend ed release TAKE 1 CAPSULE BY MOUTH EVERY DAY 09/24 completed Not Available Not Available Not Available Pyridium 100 mg tablet Take 1 tablet 3 times a day by oral route for 2 days. 05/10 completed Not Available Not Available Not Available phentermi ne 15 mg capsule Take 1 capsule every day by oral route in the morning for 30 days. 12/15 completed Not Available Not Available Not Available metronida zole 500 mg tablet Take 1 tablet every 8 hours by oral route for 7 days. active Not Available Not Available No t Available ciproflox acin 500 mg tablet TAKE 1 TABLET BY MOUTH EVERY 12 HOURS FOR 5 DAYS 12/15 completed Not Available Not Available Not Available sulfameth oxazole 800 mg-trimet hoprim 160 mg tablet TAKE 1 TABLET BY MOUTH TWICE DAILY 01/28 completed Not Available Not Available Not Available triamcino lone acetonide 0.1 % topical cream APPLY TOPICALL Y TWICE DAILY NEEDED FOR INSECT BITE active Not Available Not Available No t Available Macrobid 100 mg capsule Take 1 capsule every 12 hours by oral route for 7 days. 05/08 completed Not Available Not Available Not Available oxycodone -acetamin ophen 5 mg-325 mg tablet TAKE 1 TABLET BY MOUTH EVERY 6 HOURS NEEDED FOR PAIN 01/03 completed Not Available Not Available Not Available nitrofura ntoin macrocrys louise 100 mg capsule Take 1 capsule every 6 hours by oral route for 7 days. 05/09 completed Not Available Not Available Not Available methylpre dnisolone 4 mg tablets in a dose pack FOLLOW PACKAGE DIRECTIO NS 02/15 completed Not Available Not Available Not Available cranberry 500 mg capsule Take every day by oral route. 11/21 completed Not Available Not Available Not Available amoxicill in 875 mg-potass ium clavulana te 125 mg tablet Take 1 tablet every 12 hours by oral route as directed for 7 days. 09/06 completed Not Available Not Available Not Available amoxicill in 500 mg-potass ium clavulana te 125 mg tablet TAKE 1 TABLET BY MOUTH EVERY 12 HOURS FOR 5 DAYS 06/17 completed Not Available Not Available Not Available Mobile 3 Fish Oil capsule Take by oral route. 11/21 completed Not Available Not Available Not Available Saline Nasal 0.65 % spray aerosol USE 2 SPRAYS IN EACH NOSTRIL EVERY 4 HOURS 11/01 completed Not Available Not Available Not Available iron 65 mg 09/06 completed Not Available Not Available Not Available Vitamin D3 take fri/fri/ fri active 50mcg (2,000 IU) Not Available Not Available Not Available B-100 Complex 09/06 completed Not Available Not Available Not Available Azo 09/06 completed Not Available Not Available Not Available Zostavax (PF) 19,400 unit/0.65 mL subcutane ous suspensio n active Not Available Not Available Not Available Promacta 50 mg tablet 09/06 completed Not Available Not Available Not Available Farxiga 10 mg tablet 2023 active Not Available Not Available Not Avai lable Centrum Silver Women 11/21 completed Not Available Not Available Not Available Hair, Skin and Nails Advanced 11/21 completed Not Available Not Available Not Available Fish Oil 1,200 mg (144 mg-216 mg) capsule Take 1 capsule every day by oral route. 09/06 completed patient taking it every other day due to low plt. Not Available Not Available Not Available vitamin D3 250 mcg (10,000 unit)-vit thapa K2 45 mcg capsule Take by oral route. 11/21 completed Not Available Not Available Not Available Vitals Date Recorded Body height Body mass index (BMI) Body weight Body temperature Respiratory rate Oxygen saturation Oxygen saturation in Arterial blood by Pulse oximetry Systolic blood pressure Diastolic blood pressure Provider Name and Address Organization Details Last Updated DateTime 4 157.48 cm 47.9 kg/m2 016726. 55 g 98.2 [degF] 20 /min 98 % 98 % 128 mm[Hg] 80 mm[Hg] Raul Mackey [facility] [employer] 4 15:16:13 Date Recorded Heart rate Provider Name an d Address Organization Details Last Updated DateTime 10/14/2023 108 /min Janneth Samuel [address] [facility] [address], [place], [address], [facility] [employer] 10/14/2023 15:27:48 Date Recorded Body height Body mass index (BMI) Body weight Body temperature Heart rate Respiratory rate Oxygen saturation Oxygen saturation in Arterial blood by Pulse oximetry Systolic blood pressure Diastolic blood pressure Provider Name and Address Organization Details Last Updated DateTime 4 157.48 cm 47.2 kg/m2 173541. 18 g 98.1 [degF] 88 /min 16 /min 99 % 99 % 136 mm[Hg] 78 mm[Hg] Raul Mackey [facility] 4 09:51:38 Date Recorded Body height Body mass index (BMI) Body weight Body temperature Heart rate Respiratory rate Oxygen saturation Oxygen saturation in Arterial blood by Pulse oximetry Systolic blood pressure Diastolic blood pressure Provider Name and Address Organization Details Last Updated DateTime 4 157.48 cm 46.8 kg/m2 778331 g 98 [degF] 84 /min 16 /min 99 % 99 % 132 mm[Hg] 70 mm[Hg] Raul Mackey [facility] [employer] [facility] 4 09:14:09 Date Recorded Body height Body mass index (BMI) Body weight Body temperature Systolic blood pressure Diastolic blood pressure Provider Name and Address Organization Details Last Updated DateTime 4 157.48 cm 47.1 kg/m2 926913. 69 g 97 [degF] 130 mm[Hg] 88 mm[Hg] Zandra Goodwin RN [facility] [employer] [facility] 4 09:45:01 Date Recorded Oxygen saturation Oxygen saturation in Arterial blood by Pulse oximetry Heart rate Provider Name and Address Organization Details Last Updated DateTime 05/17/2024 98 % 98 % 90 /min Ottoniel Hopkins MD [address], [place], [address] [employer] [facility] 05/17/2024 09:52:50 Date Recorded Body height Body mass index (BMI) Body weight Body temperature Oxygen saturation Oxygen saturation in Arterial blood by Pulse oximetry Systolic blood pressure Diastolic blood pressure Provider Name and Address Organization Details Last Updated DateTime 5 157.48 cm 48.1 kg/m2 524920. 14 g 97 [degF] 95 % 95 % 142 mm[Hg] 98 mm[Hg] Zandra Goodwin RN [facility] [employer] [facility] 5 15:13:28 Date Recorded Heart rate Provider Name an d Address Organization Details Last Updated DateTime 06/10/2024 96 /min Janneth Samuel [address], [place], [address] [employer] [facility] 06/10/2024 15:23:08 Social History Question Answer Notes LastModified by Organization Details LastModified Time Tobacco Smoking Status Never Smoker Not Available [employer] 07/24/2022 16:29:25 Do You Have An Advance Directive? Yes MIGRATION.0301 [id number] Information not available 07/24/2022 What Is Your Level Of Alcohol Consumption? Occasional MIGRATION.0301 [id number] Information not available 07/24/2022 Do You Wear A Helmet When Biking? No MIGRATION.0301 196814 Information not available 07/24/2022 Are You Blind Or Do You Have Difficulty Seeing? No MIGRATION.0301 645080 Information not available 07/24/2022 Is Blood Transfusion Acceptable In An Emergency? Yes Information not available 01/28/2023 What Is Your Level Of Caffeine Consumption? None MIGRATION.0301 693159 Information not available 07/24/2022 How Much Tobacco Do You Chew? None MIGRATION.0301 788444 Information not available 07/24/2022 In The 14 Days Before Symptom Onset, Have You Had Close Contact With A Laboratory-conf irmed COVID-19 While That Case Was Ill? No MIGRATION.030 521869 Information not available 07/24/2022 In The 14 Days Before Symptom Onset, Have You Had Close Contact With A Person Who Is Under Investigation For COVID-19 While That Person Was Ill? No MIGRATION.0301 021707 Information not available 07/24/2022 Are You Currently Employed? No Retired Information not available 09/06/2022 Are You Deaf Or Do You Have Serious Difficulty Hearing? No MIGRATION.0301 793949 Information not available 07/24/2022 What Type Of Diet Are You Following? REGULAR MIGRATION.030 950407 Information not available 07/24/2022 Which Illicit Or Recreational Drugs Have You Used? None MIGRATION.030 284947 Information not available 07/24/2022 Do You Or Have You Ever Used E-cigarettes Or Vape? Never Used Electronic Cigarettes MIGRATION.0301 584893 Information not available 07/24/2022 Have There Been Any Changes To Your Family Or Social Situation? No MIGRATION.0301 171917 Information not available 07/24/2022 What Is The Fluoride Status Of Your Home? Unknown MIGRATION.0301 913293 Information not available 07/24/2022 Are There Any Guns Present In Your Home? No MIGRATION.0301 749974 Information not available 07/24/2022 Do You Use Insect Repellent Routinely? No MIGRATION.0301 226021 Information not available 07/24/2022 Where Do You Live? SingleLevelHouse With Basement MIGRATION.0301 496945 Information not available 07/24/2022 Do You Have A Medical Power Of Embedded Software Engineer? Yes MIGRATION.0301 569809 Information not available 07/24/2022 What Was The Date Of Your Most Recent Tobacco Screening? 10/14/2023 [email or web address] Information not available 10/14/2023 How Many Children Do You Have? 4 Information not available 09/06/2022 Have You Ever Been Counseled For Unhealthy Alcohol Use? No MIGRATION.0301 210270 Information not available 07/24/2022 Do You Have Any Pets? Yes MIGRATION.0301 813314 Information not available 07/24/2022 What Is Your Relationship Status? MIGRATION.0301 366520 Information not available 07/24/2022 Do You Use Your Seat Belt Or Car Seat Routinely? Yes MIGRATION.0301 173660 Information not available 07/24/2022 Do You Have Smoke And Carbon Monoxide Detectors In Your Home? Yes MIGRATION.0301 816323 Information not available 07/24/2022 Are You Passively Exposed To Smoke? No MIGRATION.0301 140198 Information not available 07/24/2022 Do You Or Have You Ever Used Smokeless Tobacco? Never Used Smokeless Tobacco MIGRATION.0301 474771 Information not available 07/24/2022 Are There Any Smokers In Your House? No MIGRATION.0301 957089 Information not available 07/24/2022 Do You Participate In Social Media? No MIGRATION.0301 598215 Information not available 07/24/2022 Do You Feel Stressed (tense, Restless, Nervous, Or Anxious, Or Unable To Sleep At Night)? [id number] Information not available 01/28/2023 Do You Use Any Illicit Or Recreational Drugs? No MIGRATION.0301 121954 Information not available 07/24/2022 Do You Use Sunscreen Routinely? No MIGRATION.0301 525437 Information not available 07/24/2022 Has Tobacco Cessation Counseling Been Provided? No MIGRATION.0301 016251 Information not available 07/24/2022 Have You Recently Traveled Abroad? No MIGRATION.0301 371761 Information not available 07/24/2022 Are You Currently In School? No MIGRATION.0301 102833 Information not available 07/24/2022 Do You Have Any Dietary Restrictions? No MIGRATION.0301 591124 Information not available 07/24/2022 Do You Or Have You Ever Used Any Other Forms Of Tobacco Or Nicotine? No MIGRATION.0301 471397 Information not available 07/24/2022 Sex: Female Functional Status Question Answer Note LastModified by Organizat [employer] Details LastModified Time Do you have difficulty walking or climbing stairs? No MIGRATION.[id number] 026 Information not available 07/24/2022 Do you have transportation difficulties? No MIGRATION.4275661 026 Information not available 07/24/2022 Are you able to walk? YESWOREST MIGRATION.6353429 026 Information not available 07/24/2022 Do you have difficulty doing errands alone? No MIGRATION.6932468 026 Information not available 07/24/2022 Are you able to care for yourself? Yes MIGRATION.2755378 026 Information not available 07/24/2022 Do you have difficulty dressing or bathing? No MIGRATION.9412562 026 Information not available 07/24/2022 What is your exercise level? None MIGRATION.3472738 026 Information not available 07/24/2022 Mental Status Question Answer Note LastModified by Organizat ion Details LastModified Time Do you have difficulty concentrating, remembering or making decisions? No MIGRATION.[id number] 6 Information not available 07/24/2022 Family History Relationship Description Onset Age of this Age Resolved Age Notes LastModified by Organization Details LastModified Time Brother Heart disease 80 MIGRATION.362 [id number] Not available 07/24/2022 16:29:33 Brother Diabetes mellitus MIGRATION.682 [id number] Not available 07/24/2022 16:29:33 Mother Myocardial infarction 83 MIGRATION.667 [id number] Not available 07/24/2022 16:29:33 Mother Malignant neoplasm of liver MIGRATION.954 [id number] Not available 07/24/2022 16:29:33 Medical History Condition Response BLINDNESS N CYSTITIS N RHEUMATIC FEVER N BLADDER PROBLEMS N KIDNEY STONES Y Enlarged Prostate N SLEEP APNEA N MRSA N INFECTIOUS DISEASE N HEART ARRHYTHMIA Y LUNG DISEASE/DISORDER N PROSTATE N INSOMNIA N HISTORY OF DRUG ABUSE N COPD N RADIATION / CHEMOTHERAPY N HIGH CHOLESTEROL / HYPERLIPIDEMIA N HYPERTHYROIDISM N UTI N BLOOD DISEASES N EDEMA N HYPOTHYROIDISM N SHINGLES N BOWEL PROBLEMS N DEPRESSION (INCLUDING POST ) N BACK / NECK PROBLEMS N HAVE YOU BEEN HOSPITALIZED OR SEEN IN [facility] IN THE PAST YEAR ? N STROKE/TIA N THYROID DISEASE N BENIGN PROSTATIC HYPERPLASIA N DIALYSIS N OBESITY N GERD/NAUSEA N ANEURYSM N OSTEOPOROSIS N URINARY/BLADDER/KIDNEY PROBLEMS N Increased Urination N CORONARY ARTERY DISEASE (CAD) N ARTHRITIS N USE OF BLOOD THINNERS N NO SIGNIFICANT PAST MEDICAL HISTORY N DIABETES, TYPE N EMPHYSEMA N GASTROINTESTINAL DISORDER N PARKINSON N GASTROINTESTINAL BLEEDING N BLOOD CLOTS N Difficulty Urinating N ASTHMA N HEPATITIS / LIVER DISEASE N CATARACTS Y GOUT N SLEEP DISORDER N ALZHEIMER'S DISEASE N ERECTILE DYSFUNCTION N HERPES N HEADACHES/MIGRAINES N SEIZURES/EPILEPSY N GI PROBLEMS N Low Testosterone N HEART MURMUR N PACEMAKER N DIZZINESS N HEART DISEASE/HEART PROBLEMS N AIDS/HIV N KIDNEY DISEASE N MULTIPLE SCLEROSIS N LIVER DISEASE N MALE HYPOGONADISM N HYPERTENSION Y CANCER: SPECIFY Y TOURETTE'S N ANXIETY DISORDER Y BLOOD TRANSFUSION N ANESTHESIA COMPLICATIONS N ANEMIA/BLOOD DISORDER N ATRIAL FIBRILLATION N AUTOIMMUNE DISEASE N TUBERCULOSIS N GLAUCOMA N Gynecological History Statement/Question Response If Post Menopausal, Age at Menopause 51 Date of Last Mammogram 05/07/2022 Date of Last Colonoscopy Most Recent Mammogram 05/07/2022 Most Recent Bone Density Obstetrics History GPAL:G 5 P 5 0 0 5 Type Value Full Term 5 Living 5 Total 5 Immunizations Vaccine Type Date Status Note Provider Nam e and Address Organization Details Recorded Time Influenza, high-dose, quadrivalent, PF 3 completed Judi Perdomo RN [facility], [facility] [employer] 01/28/2023 11:38:12 COVID-19, mRNA, LNP-S, PF, 30 mcg/0.3 mL dose 1 completed Not Available [facility] 07/24/2022 16:31:38 COVID-19, mRNA, LNP-S, PF, 100 mcg/0.5mL dose or 50 mcg/0.25mL dose 1 completed Not Available [facility] 07/24/2022 16:31:38 COVID-19, mRNA, LNP-S, PF, 100 mcg/0.5mL dose or 50 mcg/0.25mL dose 1 completed Not Available [facility] 07/24/2022 16:31:38 SARS-COV-2 (COVID-19) vaccine, UNSPECIFIED 2 completed Not Available [employer] 07/24/2022 16:31:38 Influenza, split virus, quadrivalent, preservative 2 completed Not Available [facility] 07/24/2022 16:31:38 COVID-19, mRNA, LNP-S, PF, 100 mcg/0.5mL dose or 50 mcg/0.25mL dose 2 completed Not Available [facility] 07/24/2022 16:31:38 Influenza, high-dose, quadrivalent, PF 1 completed Not Available [facility] 07/24/2022 16:31:38 Past Encounters Encounter ID Performer Location Encounter Start Date Encounter Closed Date Diagnosis/Indication Diagnosis SNOMED-CT Code Diagnosis ICD10 Code Diagnosis Note [id number] [address] [address] 10/24/2020 00:00:00 10/25/2020 17:31:11 [id number] [facility] [address] [place] [address] 1 03/02/2021 00:00:00 03/02/2021 16:17:[id number] [address] 03/14/2021 00:00:00 03/16/2021 17:28:24 [id number] [facility] [address] [place] [address] 1 04/26/2021 00:00:00 04/26/2021 09:33:31 [id number] [facility] [address] [place] [address] 1 05/02/2021 00:00:00 05/02/2021 14:27:06 [id number] [facility] [place] [address] [facility], [address] [place] [address] 05/10/2021 00:00:00 05/10/2021 11:59:55 [id number] [facility] [address] [place] [address] 1 05/31/2021 00:00:00 05/31/2021 19:12:01 [id number] [facility] [address] [place] [address] 09/18/2021 00:00:00 09/18/2021 10:02:00 [id number] [facility] [address] [address] 11/01/2021 00:00:00 11/01/2021 13:29:15 [id number] [facility] [address] [address] 12/06/2021 00:00:00 12/06/2021 18:36:15 [id number] [facility] [address] [address] 01/03/2022 00:00:00 01/03/2022 10:01:52 [id number] [facility] [address] [place] [place] [address] 02/18/2022 00:00:00 02/18/2022 18:00:14 [id number] [facility] [address] [place] [address] 03/20/2022 00:00:00 03/20/2022 09:55:33 [id number] [facility] [address] [place] [address] 04/09/2022 00:00:00 04/09/2022 15:19:14 [id number] [facility] [address] [place] [address] 04/24/2022 00:00:00 04/24/2022 15:13:16 [id number] [facility] [address] [address] 05/09/2022 00:00:00 05/09/2022 12:49:[id number] [address] 06/12/2022 00:00:00 06/12/2022 12:21:35 [id number] Judi Herrera NP [address] [address] 09/06/2022 09:24:33 09/06/2022 09:59:11 Obese 714619090 E66.9 Diet and exercise encouraged and recommende d. Recurrent urinary tract infection 101736733 N39.[address] Chase, urology. Thrombocyt openic disorder 653789906 D69.[address] Squires onc/hem. [id number] Osmany Rachel MD [facility] [address], [address] [place] [address] 11/21/2022 10:19:48 11/21/2022 11:14:13 Kidney stone 42093617 N20.0 hydrationk ub in a year Recurrent urinary tract infection 697336653 N39.0 check culturesta rt abx [id number] Judi Herrera NP [address] [address] 12/25/2022 15:09:10 12/25/2022 15:46:01 Tachycardia 5441113 R00.0 States her HR has been high for 1 year. Did not mention until now when nurse asked. Starting on propranolo l ER 60 mg po daily. Fu in 1 mo for recheck.Wi ll check EKG on return visit. Fall [address] did EKG and was normal but fast per patient. Dysuria 01234593 R30.0 Urine dip with small blood, negative nitrates. Sending for culture. Increased blood pressure 18598618 R03.0 Propranolo l ER 60 mg po daily. [id number] Judi Herrera NP [address] [address] 01/28/2023 10:44:14 01/28/2023 11:26:14 Tachycardia 8401926 R00.0 States her HR has been high for 1 year. Did not mention until now when nurse asked. Starting on propranolo l ER 60 mg po daily. Fu in 1 mo for recheck.Wi ll check EKG on return visit. Fall 2021 Dr. Sahw gill did EKG and was normal but fast per patient. 01/28/23. No improvemen t with Propranolo l ER 60 mg, so will refer to cardiology . EKG ordered. Will recheck tsh and BMP. Seeing hematologi st, Dr. Squires, who checks CBC and Plt monitoring . Essential hypertension 00884424 I10 Losartan 50 mg po daily.< 2 gm sodium diet. Administra tion of influenza vaccine 02287252 Z23 [id number] Judi Herrera NP [place] [address] 1 03/19/2023 09:17:11 03/19/2023 10:00:46 Tachycardia 3832381 R00.0 States her HR has been high for 1 year. Did not mention until now when nurse asked. Starting on propranolo l ER 60 mg po daily. Fu in 1 mo for recheck.Wi ll check EKG on return visit. Fall 2021 Dr. Shaw gill did EKG and was normal but fast per patient. 01/28/23. No improvemen t with Propranolo l ER 60 mg, so will refer to cardiology . EKG ordered. Will recheck tsh and BMP. Seeing hematologi , Dr. Squires, who checks CBC and Plt monitoring . 03/19/23 propranolo l stopped due to low heartrate. Vitals good 03/19/23 in office. Essential hypertension 11895763 I10 Losartan 50 mg po daily.< 2 gm sodium diet.Cardi ology appt in March 2023. Chronic ki dney disease stage 3 556227364 N18.30 Farxiga 10 mg po daily. Pt will try, but let us know at first sign of UTI. [id number] Judi Herrera NP [facility] [address] 05/07/2023 14:44:05 05/07/2023 16:02:43 Dysuria 67000033 R30.0 R30.9 Patient was started on antibiotic and advised to increase water intake. [id number] Ottoniel Hopkins MD [address] [address] 06/17/2023 14:03:54 06/17/2023 14:34:26 Dysuria 76681315 R30.0 Urinary tr act infectious disease 74993999 N39.0 Hyperlipidemia 90274037 E78.5 Pt declined for any statin. Obesity 504711754 E66.9 [id number] Ottoniel Hopkins MD [address] [address] 09/25/2023 15:22:55 09/25/2023 16:16:09 Hypertensive disorder 02152196 I10 Chronic ki dney disease stage 3 534761355 N18.30 Morbid obesity 748901086 E66.01 Hyperlipidemia 83539319 E78.5 History of calculus of kidney 537232387 Z87.442 Screening mammography 24 052802 Z12.31 Screening for osteoporosis 310859699 Z13.820 Screening for malignant neoplasm of colon 142043920 Z12.11 Dysuria 87951290 R30.0 [id number] Ottoniel Hopkins MD [address] [address] 10/14/2023 14:59:54 10/14/2023 16:30:23 Adult health examination 539355801 Z00.00 Screening for disorder 611294930 Z13.9 Hypertensive disorder 38 409886 I10 Chronic ki dney disease stage 3 715865078 N18.30 Morbid obesity 518131008 E66.01 Hyperlipidemia 64291029 E78.5 History of calculus of kidney 796097947 Z87.442 Prediabetes 416072827 R7 3.03 [id number] Ottoniel Hopkins MD [address] [address] 12/16/2023 09:40:48 12/16/2023 10:17:58 Hypertensive disorder 79582326 I10 Chronic ki dney disease stage 3 986120612 N18.30 Morbid obesity 680689941 E66.01 History of calculus of kidney 258638364 Z87.442 Prediabetes 668717732 R7 3.03 [id number] Ottoniel Hopkins MD [address] [address] 02/16/2024 09:05:33 02/16/2024 09:35:45 Chronic kidney disease stage 3 809124876 N18.30 Improved Hypertensive disorder 38 606547 I10 Diet controlled Prediabetes 239161564 R7 3.03 Morbid obesity 818775256 E66.01 History of calculus of kidney 525799998 Z87.249 [id number] Ottoniel Hopkins MD [address] [address] 05/17/2024 09:33:21 05/17/2024 10:07:45 Prediabetes 467581435 R73.03 Chronic ki dney disease stage 3 626812522 N18.30 Improved Hypertensive disorder 38 714152 I10 Diet controlled Morbid obesity 945455125 E66.01 History of calculus of kidney 845260992 Z87.257 [id number] Ottoniel Hopkins MD [address] [address] 06/10/2024 15:02:36 06/10/2024 15:50:09 Dysuria 53758209 R30.0 Urge incon tinence of urine 33175890 N39.41 Overactive urinary bladder 484909273 N32.81 Health Concerns Section Related Observation LastModified by Organization Detai ls LastModified Time None Recorded Concern Status LastModified by Organization Details LastModified Time None Recorded Advance Directives Directive Y: Payers Encounter Date Sequence Insurance Name Policy Number Policy Silver Covered Member ID Silver Member ID Guarantor Name 10/14/2023 1 [facility] (MEDICARE REPLACEMENT/A DVANTAGE - HMO) [id number] Cathy Fink Hellrung [id number] Cathy Fink Hellrung 12/16/2023 1 [facility] (MEDICARE REPLACEMENT/A DVANTAGE - HMO) [id number] Cathy A Hellrung [id number] Cathy A Hellrung 02/16/2024 1 [facility] (MEDICARE REPLACEMENT/A DVANTAGE - HMO) [id number] Cathy A Hellrung [id number] Cathy A Hellrung 05/17/2024 1 [facility] (MEDICARE REPLACEMENT/A DVANTAGE - HMO) [id number] Cathy A Hellrung [id number] Cathy A Hellrung 06/10/2024 1 [facility] (MEDICARE REPLACEMENT/A DVANTAGE - HMO) [id number] Cathy A Hellrung [id number] Cathy A Hellrung Notes Date Note Type Note Provider Name and Address Organization Details Recorded Time 10/14/2023 text/html Pt is here for f/u on her annual labs and MAWV. Doing overall well. Denies any problem with meds. Pt wants to try phentermine. Pt has tried otc meds in the past and other Rx meds are not covered with her insurance. Pt has h/o kidney stone and is f/u with Uro for it. Pt is seeing Cardio at [facility] and they did testing for her and nothing concerning. Pt denies any chest pain/sob/palpitat ions/sweating episodes. Ottoniel Hopkins MD [address], [place] [address], [place], [address], [employer] 10/14/2023 16:24:42 12/16/2023 text/html Pt is here for f/u on her meds and chronic conditions. Doing overall well. Denies any problem with meds. Pt decided to stop all her meds and wants to see how she does with it. Pt did not start taking Phentermine. Pt has h/o kidney stone and is f/u with Uro for it. Pt is seeing Cardio at [facility] and they did testing for her and nothing concerning. Pt denies any chest pain/sob/palpitat ions/sweating episodes. Ottoniel Hopkins MD [address], [place], [address], [employer] 12/16/2023 10:12:06 02/16/2024 text/html Pt is here for f/u on her labs and chronic conditions. Doing overall well. Denies any problem with meds. Pt decided to stop all her meds and wants to see how she does with it. Pt did not start taking Phentermine. Pt has h/o kidney stone and is f/u with Uro for it. Pt is seeing Cardio at [facility] and they did testing for her and nothing concerning. Pt denies any chest pain/sob/palpitat ions/sweating episodes. Ottoniel Hopkins MD [address] [facility], [place], [address], [employer] 02/16/2024 09:34:51 05/17/2024 text/html Pt is here for f/u on her labs and chronic conditions. Doing overall well. Denies any problem with meds. Pt is taking half of Farxiga 10mg and wants to cont that way. Pt is f/u with Nephro at [facility] for her CKD. Pt has h/o kidney stone and is f/u with Uro for it. Pt is seeing Cardio at [facility] and they did testing for her and nothing concerning. Pt denies any chest pain/sob/palpitat ions/sweating episodes. Ottoniel Hopkins MD [address], [place], [address], [employer] 05/17/2024 10:04:05 06/10/2024 text/html ACV: C/o urinary leakage with some activities and pressure sensations over her lower bladder area for last few weeks. Denies any blood in urine, no fever/chills/n/v/ c/d. Ottoniel Hopkins MD [address], [place], [address], [employer] 06/10/2024 15:56:07 OBGyn Episode No OBEpisode recorded.
[2024-06-21 12:52] LABS: Anion Gap 8 mmol/L (4-12); Blood Urea Nitrogen 25 mg/dL (7-17); Calcium 8.8 mg/dL (8.4-10.2); Carbon Dioxide 26 mmol/L (22-30); Chloride 105 mmol/L (98-107); Estimated Glomerular Filt Rate 59; Glucose 103 mg/dL (65-110); Potassium 4.8 mmol/L (3.4-5.0); Sodium 139 mmol/L (137-145)
== END 2024-06-21 10:49 | disposition home or self-care (01) ==
PROVIDERS: PCP Family Medicine; Visit Provider Internal Medicine Hematology & Oncology
DX: D69.3 Immune thrombocytopenic purpura (principal)
CPT/HCPCS: 36415; 80048; 85025; 85055

== ENCOUNTER 2024-07-02 19:48 | Emergency (ER) | payer MEDICARE, SELFPAY ==
[2024-07-02] VITALS (12 sets, daily range): BP systolic 146–185; BP diastolic 104–137; PULSE 56–136; RESP 15–20; TEMP 36.2; O2SAT 96–100
--- OUTSIDE RECORDS SUMMARY | 2024-07-02 19:50 | XMS_ITS | Referral Summary ---
Author Organization [facility] Medical Office Building A Address [address] [place] [address] Care Team Providers Care Air Traffic Control Supervisor Name Role Phone Ottoniel Hopkins MD Primary Care Provider [phone] Encounters Date Type Department Care Team Description 06/28/2024 9:30 AM INSULATOR APPRENTICE Office Visit [facility] Medical Group Cardiology [address] [place] [address] Rishabh Barrett MD Tachycardia, unspecified (Primary Dx); Atypical atrial flutter (CMS/HCC) (HCC); Need for lipid screening from Last 3 Months Allergies No known active allergies Medications losartan (COZAAR) 50 mg tablet Take 1 tablet (50 mg total) by mouth daily Active Farxiga 10 mg tablet Take 1 tablet (10 mg total) by mouth daily 02/20/2023 Active cholecalciferol (Vitamin D3) 2000 unit tablet every other day Active UNABLE TO FIND UQORA Activ e Active Problems Problem Noted Date Diagnosed Date Atypical atrial flutter (CMS/HCC) 06/28/2024 Tachycardia, unspecified 04/04/2023 Chronic ITP (idiopathic thrombocytopenia) [...] Friends and Family Patient declined 09/04/2018 Attends Christian Services Patient declined 08/24 Active Member of [...] Paying Living Expenses Patient dec lined 09/04/2018 [facility] [place] of Occupat ional Health - Occupational Stress [...] on file Legal Sex Female 11:25 AM INSULATOR APPRENTICE Gender Identity Not on file Sexual Orientation Not on file Last Filed Vital Signs Vital Sign Reading Time Taken Comments Blood Pressure 124/100 06/28/2024 9:30 AM INSULATOR APPRENTICE Pulse 136 06/28/2024 9:30 AM INSULATOR APPRENTICE Temperature - - Respiratory Rate - - Oxygen Saturation 93% 10/21/2023 10: 45 AM CDT Inhaled Oxygen Concentration - - Weight 118.9 kg (262 lb 3.2 oz) 06/28/2024 9:30 AM INSULATOR APPRENTICE Height 157.5 cm (5' 2 ) 06/28/2024 9:30 AM INSULATOR APPRENTICE Body Mass Index 47.96 06/28/2024 9:30 AM INSULATOR APPRENTICE Plan of Treatment Not on file Procedures Procedure Name Priority Date/Time Associated Diagnosis Comments ECG 12-LEAD Routine 06/28/2024 12:20 PM INSULATOR APPRENTICE Atypical atrial flutter (CMS/HCC) (HCC) POCT LIPID PANEL Routine 06/28/2024 10:4 9 AM INSULATOR APPRENTICE Need for lipid screening from Last 3 Months Results * ECG 12 lead (06/28/2024 12:20 PM INSULATOR APPRENTICE) us Rishabh Barrett MD ECG ORDERABLES Final Re sult * POCT lipid panel (06/28/2024 10:49 AM INSULATOR APPRENTICE) Cholesterol, POC 248 mg/dL Comment:GLU = 106 HDL, POC 47 mg/dL Triglycerides, POC 274 mg/dL LDL Cholesterol POC 146 mg/dL Chol/HDL Ratio, POC 3.1 Non-HDL Cholesterol, POC 201 mg/dL Cholesterol Total, POC 248 mg/dL Capillary blood 06/28/2024 1 0:49 AM INSULATOR APPRENTICE Rishabh Barrett MD POINT OF CARE TEST ORDER DAPHNEY Final Result from Last 3 Months Insurance [facility] H[facility]F [facility] Address: [place] [id number] [place] [address] [facility]F [facility] Address: [address] [address] [place] [address] MEDICARE SOLUTIONS [facility] Address: [facility] [address] [place] [address] Care Teams Air Traffic Control Supervisor Relationship Specialty Start Date End Date Ottoniel Hopkins MD [address] [address] PCP - General Family Medicine 10/21/23
--- OUTSIDE RECORDS SUMMARY | 2024-07-02 19:50 | XMS_ITS | CONTINUITY OF CARE DOCUMENT ---
Author Name alex johnson Address Unknown Organization [facility] Address [address] [place] [address] [address] [place] [address] Phone [phone] Care Team Providers Care Oil Field Pipeline Supervisor Name Role Phone Jef Ann MD Unavailable [phone] Jef Ann MD Unavailable [phone] Sharon HOOKERP-BCJudi Unavailable INSURANCE PROVIDERS Payer name Policy type / Coverage type [place] red constitution party ID AARP MEDICARE ADVANTAGE ([facility] COMPLETE PPO) Other [id number]
--- OUTSIDE RECORDS SUMMARY | 2024-07-02 19:50 | XMS_ITS | Clinical Summary ---
Author Organization [facility] Medical Office Building A Address [address] [place] [address] Care Team Providers Care Soft Work Wrapper Layer And Examiner Name Role Phone Ottoniel Hopkins MD Primary Care Provider [phone] Allergies No known active allergies Medications losartan [...] written form Will return in one week Encounters Date Type Department Care Team Description 06/28/2024 9:30 AM GELATIN DYNAMITE PACKING OPERATOR Office Visit [facility] Medical Group Cardiology [address] [place] [address] Rishabh Barrett MD Tachycardia, unspecified (Primary Dx); Atypical atrial flutter (CMS/HCC) (HCC); Need for lipid screening from Last 3 Months Immunizations Name Administration Dates Next Due Hep [...] Friends and Family Patient declined 09/04/2018 Attends Scientology Services Patient declined 08/24 Active Member of [...] Paying Living Expenses Patient dec lined 09/04/2018 [facility] of Occupat ional Health - Occupational [...] on file Legal Sex Female 11:25 AM GELATIN DYNAMITE PACKING OPERATOR Gender Identity Not on file Sexual Orientation Not on file Obstetrics History Last Filed Vital Signs Vital Sign Reading Time Taken Comments Blood Pressure 124/100 06/28/2024 9:30 AM GELATIN DYNAMITE PACKING OPERATOR Pulse 136 06/28/2024 9:30 AM GELATIN DYNAMITE PACKING OPERATOR Temperature - - Respiratory Rate - - Oxygen Saturation 93% 10/21/2023 10: 45 AM CDT Inhaled Oxygen Concentration - - Weight 118.9 kg (262 lb 3.2 oz) 06/28/2024 9:30 AM GELATIN DYNAMITE PACKING OPERATOR Height 157.5 cm (5' 2 ) 06/28/2024 9:30 AM GELATIN DYNAMITE PACKING OPERATOR Body Mass Index 47.96 06/28/2024 9:30 AM GELATIN DYNAMITE PACKING OPERATOR Plan of Treatment Health Maintenance Due Date Last Done Comments Colon Cancer Screening-Colonoscopy 1950 Depression Screening 1950 Fall Risk Assessment 1950 Hepatitis C Screening 1950 Osteoporosis Screening-Bone Density Scan 1950 Well Visit 65+ 2016 Pneumococcal vaccine 65+ (2 of 2 - PPSV23 or PCV20) 11/07/2018 11/07/2017 Breast Cancer Screening-Mammogram 05/07/2023 022 Covid-19 Vaccine (7 - 4-2 5 season) 2024 02/25/2023, 03/12/2022, 10/26/2021, Additional history exists Influenza Vaccine (#1) 2024 2, 01/31/2022, 02/08/2021, Additional history exists DTaP/Tdap/Td Vaccine (3 - Td or Tdap) 06/05/2031 06/05/2021, 11/05/2017 Zoster Vaccine Completed 04/17/2018, 01/24, 04/08/2013 Procedures Procedure Name Priority Date/Time Associated Diagnosis Comments ECG 12-LEAD Routine 06/28/2024 12:20 PM GELATIN DYNAMITE PACKING OPERATOR Atypical atrial flutter (CMS/HCC) (HCC) POCT LIPID PANEL Routine 06/28/2024 10:4 9 AM GELATIN DYNAMITE PACKING OPERATOR Need for lipid screening from Last 3 Months Results * ECG 12 lead (06/28/2024 12:20 PM GELATIN DYNAMITE PACKING OPERATOR) us Rishabh Barrett MD ECG ORDERABLES Final Re sult * POCT lipid panel (06/28/2024 10:49 AM GELATIN DYNAMITE PACKING OPERATOR) Cholesterol, POC 248 mg/dL Comment:GLU = 106 HDL, POC 47 mg/dL Triglycerides, POC 274 mg/dL LDL Cholesterol POC 146 mg/dL Chol/HDL Ratio, POC 3.1 Non-HDL Cholesterol, POC 201 mg/dL Cholesterol Total, POC 248 mg/dL Capillary blood 06/28/2024 1 0:49 AM GELATIN DYNAMITE PACKING OPERATOR Rishabh Barrett MD POINT OF CARE TEST ORDER DAPHNEY Final Result from Last 3 Months Insurance [facility] HMO REF [facility] HMO REF MEDICARE SOLUTIONS Care Teams Soft Work Wrapper Layer And Examiner Relationship Specialty Start Date End Date Ottoniel Hopkins MD [address] [place] [address] PCP - General Family Medicine 10/21/23
--- OUTSIDE RECORDS SUMMARY | 2024-07-02 19:50 | XMS_ITS | Clinical Summary ---
Author Organization [facility] [address] Address [address] [place] [address] Care Team Providers Care Associate Sales Manager Name Role Phone Ottoniel Hopkins MD Primary Care Provider [phone] Allergies Active Allergy Reactions Criticality Noted Date Comments Sulfamethoxazole-Trimethoprim Constipation Low 12/2021 Medications losartan (COZAAR) 50 mg tablet Take 50 mg by mouth daily. Active dapagliflozin propanediol (Farxiga) 10 mg Tablet Take 5 mg by mouth daily. Active CALCIUM CARBONATE-VITAMI N D3 ORAL Take by mouth. One tablet every other day Active OTHER UQORA- take once every other day Active Active Problems Problem Noted Date Diagnosed Date Acute idiopathic thrombocytopenic purpura 2021 Encounters Date Type Department Care Team Description 06/30/2024 3:30 PM HYDRAULIC BLOCKER Office Visit [facility] Oncology and Hematology [facility] [address] [place] [address] Dominic Squires MD Acute idiopathic thrombocytopenic purpura (CMS/HCC) (Primary Dx) 06/22/2024 External Device Data STL ABSTRACTION Provider, Abstract 06/22/2024 Orders Only [facility] Oncology and Hematology - [place] [address] [facility] [place] [address] Dominic Squires MD 06/16/2024 External Device Data STL ABSTRACTION Provider, Abstract 06/16/2024 External Device Data STL ABSTRACTION Provider, Abstract 05/11/2024 Orders Only [facility] Oncology and Hematology [place] [address] [place] [address] Scanning, Provider 04/14/2024 Orders Only [facility] Oncology and Hematology - [place] [address] [place] [address] Dominic Squires MD from Last 3 Months Social History Tobacco Use Types Packs/Day Years Used Date Smoking Tobacco: Never Smokeless Tobacco: Never Tobacco Cessation:Counseling Given: Not Answered Alcohol Use Standard Drinks/Week Comments Yes 0 (1 standard drink = 0.6 oz pur e alcohol) Comments Unknown Sex and Gender Information Value Date Recorded Sex Assigned at Not on file Legal Sex Female 10:36 AM HYDRAULIC BLOCKER Gender Identity Not on file Sexual Orientation Not on file Last Filed Vital Signs Vital Sign Reading Time Taken Comments Blood Pressure 157/101 06/30/2024 3:34 PM HYDRAULIC BLOCKER last couple weeks has gone up recently seen perinatal nurse to figure out what the cause is Pulse 153 06/30/2024 3:34 PM HYDRAULIC BLOCKER patient has a heart flutter and sees a perinatal nurse Temperature 36.3 C (97.3 F) 06/30/2024 3:34 PM HYDRAULIC BLOCKER Respiratory Rate 18 06/30/2024 3:34 PM HYDRAULIC BLOCKER Oxygen Saturation 95% 10/29/2023 10: 10 AM CDT Inhaled Oxygen Concentration - - Weight 118.4 kg (261 lb) 06/30/2024 3:3 4 PM HYDRAULIC BLOCKER Height 157.5 cm (5' 2 ) 03/05/2022 8:51 AM CDT Body Mass Index 47.74 03/05/2022 8:51 AM CDT Plan of Treatment Upcoming Encounters Date Type Department Care Team (Late st Contact Info) Description 12/29/2024 11:45 AM CDT Office Visit [facility] Oncology and Hematology - [place] [address] [place] [address] Dominic Squires MD [address] [facility] [employer] [address] [place] [address] Health Maintenance Due Date Last [...] PPSV23) 11/07/2018 11/07/2017 INFLUENZA VACCINE (#1) 2023 , 01/31/2022, 02/13/2021, Additional history exists COVID-19 Vaccine (6 - 2023-2 5 season) 2024 03/12/2022, 10/26/2021, 04/06/2021, Additional history exists Medicare Advantage ([place]) Preventative Visit/Annual Wellness Visit 05/26/2024 10/14/2023 DTAP/TDAP/TD VACCINES (2 - T d or Tdap) 11/06/2027 11/05/2017 ZOSTER VACCINE Completed 04/17/2018, 02/11/2018 Procedures Procedure Name Priority Date/Time Associated Diagnosis Comments BASIC METABOLIC PANEL Routine 06/21/2024 12:52 PM HYDRAULIC BLOCKER HEMOGLOBIN A1C Routine 05/10/2024 12:54 PM HYDRAULIC BLOCKER VITAMIN D 25 HYDROXY Routine 04/12/2024 2:04 PM HYDRAULIC BLOCKER BASIC METABOLIC PANEL Routine 04/12/2024 12:45 PM HYDRAULIC BLOCKER from Last 3 Months Results * BASIC METABOLIC PANEL (06/21/2024 12:52 PM HYDRAULIC BLOCKER) Only the most recent of2 resultswithin the time period is included. Blood Dominic Squires MD CHEMISTRY ORDERABLES Final Resu lt * HEMOGLOBIN A1C (05/10/2024 12:54 PM HYDRAULIC BLOCKER) Blood Provider Scanning CHEMISTRY ORDERABLES Final Res ult * VITAMIN D 25 HYDROXY (04/12/2024 2:04 PM HYDRAULIC BLOCKER) Blood Provider Scanning CHEMISTRY ORDERABLES Final Res ult from Last 3 Months Insurance [facility] [id number] RX [employer] RX Member Subscriber Plan / Payer (Ef fective 2022-Present) Name:KrystalhoneyCathy urrutia Relation to Subscriber:Self Name:KrystalhoneyCathy urrutia Payer ID:Not on file Group ID:[id number] Type:RX Medicare Part D Address: [address] Care Teams Associate Sales Manager Relationship Specialty Start Date End Date Ottoniel Hopkins MD [address] [place] [address] [place] [address] PCP - General Family Practice 10/29/23
--- OUTSIDE RECORDS SUMMARY | 2024-07-02 19:51 | XMS_ITS | Data Portability ---
Author Organization [facility], Main Office Address [address] [place] [address] Care Team Providers Care Electroencephalograph Technologist Name Role Phone OTTONIEL HOPKINS Primary Care Provider OTTONIEL HOPKINS Referring Provider [phone] OTTONIEL HOPKINS Primary Care Provider Assessment Encounter Date Assessment Date Assessment LastModified by Organization Details LastModified Time 12/16/2023 12/16/2023 73 yo F with - [...] BMP in 01/16. Annual labs in 10/17. [email or web address] Not available 12/16/2023 10:11:24 02/16/2024 02/16/2024 73 [...] A1c in 05/18. Annual labs in 10/17. [email or web address] Not available 02/16/2024 09:33:52 05/17/2024 05/17/2024 74 [...] in 5 months. Annual labs in 10/17. [email or web address] Not available 05/17/2024 10:03:33 06/10/2024 06/10/2024 Explained about different options for her. [email or web address] Not available 06/10/2024 15:35:40 Plan of Treatment Reminders Order Date Submit Date Provider Last Modified By Organization Details Last Modified Time Details Appointments Physical/ Annual Wellness 30 2024 09:00A M Ottoniel Hopkins MD Not available Not available Not available Lab BMP, serum or plasma [address] (Lab), [address] [place], [address], 01/05/2024 08:03:27 glycohemo globin, total, blood 2023 024 [facility] (Lab), [address] [place], [address], 05/11/2024 05:04:16 urinalysi s, dipstick 2024 [facility]25 [facility], [address] [place], [address], 06/10/2024 15:44:13 Referral urologist referral - Please call patient to schedule an appointme nt. Thank you. 2024 025 [email or web address] [facility] [address], [place], [address], 06/23/2024 14:11:17 Procedures None recorded. Surgeries None recorded. Imaging None recorded. Medication Orders Farxiga 10 mg tablet 2023 024 [id number], [address] [facility] [place], [place], [id number], 05/17/2024 09:53:39 Patient TargetsNo targets recorded. Patient Instructions Encounter Date Encounter Id Patient Instructions Last Modified By Organization Details Last Modified Time 12/16/2023 [id number] high blood pressure: care instructions [email or web address] Not available 12/16/2023 10:09:00 When You Want to Lose Weight: Care Instructions [email or web address] Not available 12/16/2023 10:09:07 02/16/2024 [id number] high blood pressure: care instructions [email or web address] Not available 02/16/2024 09:28:58 When You Want to Lose Weight: Care Instructions [email or web address] Not available 02/16/2024 09:28:58 05/17/2024 [id number] high blood pressure: care instructions [email or web address] Not available 05/17/2024 09:52:21 prediabetes: car e instructions Not available 05/17/2024 09:52:21 When You Want to Lose Weight: Care Instructions Not available 05/17/2024 09:52:21 06/23/2024 [id number] 1. I recommend starting on a stool softener such as MiraLax to see if that helps the symptomatic rectocele 2. She will use nystatin powder for the rash in the left groin 3. We will schedule for a telehealth in about 3-4 weeks if she is improved [email or web address] Not available 06/23/2024 13:06:15 Reason for Referral Urologist Referral for Urge incontinence of urine Please call patient to schedule an appointment. Thank you. Referring Physician: Ottoniel Hopkins, Family Medicine, Encounter Date: 06/10/2024 Results Created Date Observation Date Name Description Value Unit Range Abnormal Flag Note LastModifiedBy Organization Detail LastModifiedTime 06/10/19 25 06/10/2024 urina lysis , dipst ick Leukocytes (reference range: negative marcia/ l) Negati ve Not Available [facility] [place] [address], [place], [address], 06/10/2024 15:25:06 06/10/19 25 06/10/2024 urina lysis , dipst ick Nitrite (reference rage: negative mg/dl) negati ve Not Available [address], [address], 06/10/2024 15:25:06 06/10/19 25 06/10/2024 urina lysis , dipst ick Urobilinogen (reference range: 0.2-1 mg/dl) 0.2 Not Available [address], [address], 06/10/2024 15:25:06 06/10/19 25 06/10/2024 urina lysis , dipst ick Protein (reference range: negative mg/dl) Negati ve Not Available [address], [address], 06/10/2024 15:25:06 06/10/19 25 06/10/2024 urina lysis , dipst ick pH (reference range: 5-7) 6.0 Not Available [address], [address], 06/10/2024 15:25:06 06/10/19 25 06/10/2024 urina lysis , dipst ick Blood (reference range: negative Fidel/ l) Modera te Not Available [address], [address], 06/10/2024 15:25:06 06/10/19 25 06/10/2024 urina lysis , dipst ick Specific [place] (reference range: 1.005-1.030) 1.015 Not Available [address], [address], 06/10/2024 15:25:06 06/10/19 25 06/10/2024 urina lysis , dipst ick Ketone (reference range: negative mg/dl) Negati ve Not Available [address], [address], 06/10/2024 15:25:06 06/10/19 25 06/10/2024 urina lysis , dipst ick Bilirubin (reference range: negative mg/dl) Negati ve Not Available [address], [address], 06/10/2024 15:25:06 06/10/19 25 06/10/2024 urina lysis , dipst ick Glucose (reference range: negative mg/dl) 500 Not Available [address], [address], 06/10/2024 15:25:06 06/10/19 25 06/10/2024 urina lysis , dipst ick Appearance Slight ly Cloudy Not Available [address], [address], 06/10/2024 15:25:06 06/10/19 25 06/10/2024 urina lysis , dipst ick Color Yellow Not Available [address], [address], 06/10/2024 15:25:06 Result Notes None recorded. Problems Name Problem SNOMED Code Status Onset Date Resolution Date Notes Provider Name and Address Organization Details Recorded Time Menopause present 735492667 Active Not Available [employer] 16:30:16 Thrombocyt openic disorder 073965107 Active 2021 Not Available [facility] 3 16:30:17 Candidal vulvovagin itis 51867859 Active 2021 Not Available [facility] 3 16:30:17 Kidney stone 24690408 Active 2022 Ruthann Luis jalen, [place] [facility] 3 11:27:55 Tachycardi a 9545477 Active 2022 Judi Herrera NP [address], [address], [place], [address] , [facility] [place] [facility] 3 15:31:18 Chronic kidney disease stage 3 702141716 Active 2022 Judi Herrera NP [address], [place], [address] , [facility] [place] [facility] 3 10:07:46 Hyperlipid emia 07405856 Active 2023 Ottoniel [place] MD [address], [place], [address] , [facility] [place] [facility] 4 14:23:55 Hypertensi ve disorder 39706756 Active 2023 Ottoniel [place] MD [address], [place], [address] , [facility] [place] [facility] 4 15:25:48 Morbid obesity 328230539 Active 2023 Ottoniel [place] MD [address], [place], [address] , [facility] [place] [facility] 4 15:25:59 Dysuria 57963233 Active 2023 Ottoniel [place] MD [address], [place], [address] , [facility] [place] [facility] 4 15:59:24 Prediabete s 533847195 Active 2023 Ottoniel [place] MD [address], [place], [address] , [facility] [employer] [facility] 4 15:30:04 Urge incontinen ce of urine 61080271 Active 2024 Ottoniel [place] MD [address], [address] , [facility] [employer] [facility] 5 15:27:04 Overactive urinary bladder 603413751 Active 2024 Ottoniel [place] MD [address], [address] , [facility] [employer] [facility] [employer] [facility] 5 15:55:35 Herniation of rectum into vagina 620419055 Active 2024 Alexey Levine MD [address], [address] , [facility] [employer] [facility] [employer] [facility] 5 13:05:15 Rash of groin 1962509478667 4108 Active 2024 Alexey Levine MD [address], [address] , [facility] [employer] [facility] [employer] [facility] 5 13:05:33 Candidiasi s of skin 82993422 Active 2024 Alexey Levine MD [address], [address] , [facility] [employer] [facility] [employer] [facility] 5 08:42:09 Notes:skin cancer; lower rt leg Problem Notes None recorded. Procedures Surgical History Date Name Laterality Status Provider Name and Address Organization Details Recorded Time 4 Medicare Wellness CPT Code, subsequent completed Raul Mackey [place] [employer] [facility] 10/14/2023 15:11:40 2 Most Recent Mammogram completed Judi Perdomo RN [facility] [employer] 09/06/2022 09:39:30 Skin Graft completed Not Available [facility] 07/24/2022 16:29:33 Cataract Surgery completed Not Available [facility] 07/24/2022 16:29:33 Imaging Results None recorded. Procedure Notes None recorded. Medical Equipment None Reported. Allergies Allergen ID Allergen Name Allergen Category Reaction Reaction Severity Criticality Documentation Date Start Date Code Code System Note Provider Name and Address Organization Details Recorded Time 78418 Bactrim medicatio n Not available Not available Not available 07/24/2022 19471 9 RxNorm Not Available [facility] 16:31:40 Medications Name Sig Start Date Stop [...] Y TWICE DAILY NEEDED FOR INSECT BITE 06/23 completed Not Available Not Available Not Available Macrobid 100 mg capsule Take 1 [...] completed Not Available Not Available Not Available nystatin 100,000 unit/gram topical powder APPLY TO THE AFFECTED AREA(S) BY TOPICAL ROUTE 2 TIMES PER DAY 2024 active Not Available Not Available Not Avai lable methylpre dnisolone 4 mg tablets in a [...] completed Not Available Not Available Not Available [place] 3 Fish Oil capsule Take by oral [...] Available Not Avai lable Centrum Silver Women 06/29 /2023 completed Not Available Not Available Not Available [...] Updated DateTime 4 157.48 cm 47.2 kg/m2 551405. 18 g 98.1 [degF] 88 /min 16 /min 99 % 99 % 136 mm[Hg] 78 mm[Hg] Raul [facility] 4 09:51:38 Date Recorded Body height Body mass index (BMI) Body weight Body temperature Heart rate Respiratory rate Oxygen saturation Oxygen saturation in Arterial blood by Pulse oximetry Systolic blood pressure Diastolic blood pressure Provider Name and Address Organization Details Last Updated DateTime 4 157.48 cm 46.8 kg/m2 572329 g 98 [degF] 84 /min 16 /min 99 % 99 % 132 mm[Hg] 70 mm[Hg] Raul [facility] 4 09:14:09 Date Recorded Body height Body mass index (BMI) Body weight Body temperature Systolic blood pressure Diastolic blood pressure Provider Name and Address Organization Details Last Updated DateTime 4 157.48 cm 47.1 kg/m2 909067. 69 g 97 [degF] 130 mm[Hg] 88 mm[Hg] Zandra Goodwin RN [facility] 4 09:45:01 Date Recorded Oxygen saturation Oxygen saturation in Arterial blood by Pulse oximetry Heart rate Provider Name and Address Organization Details Last Updated DateTime 05/17/2024 98 % 98 % 90 /min Ottoniel [place] MD [address] [place] [address], [address], [facility] [employer] 05/17/2024 09:52:50 Date Recorded Body height Body mass index (BMI) Body weight Body temperature Oxygen saturation Oxygen saturation in Arterial blood by Pulse oximetry Systolic blood pressure Diastolic blood pressure Provider Name and Address Organization Details Last Updated DateTime 5 157.48 cm 48.1 kg/m2 229943. 14 g 97 [degF] 95 % 95 % 142 mm[Hg] 98 mm[Hg] Zandra Goodwin RN [facility] [employer] 5 15:13:28 Date Recorded Heart rate Provider Name an d Address Organization Details Last Updated DateTime 06/10/2024 96 /min Janneth Samuel [address] [place] [address], [place], [address], [facility] [employer] 06/10/2024 15:23:08 Date Recorded Body height Heart rate Body temperature Body mass index (BMI) Body weight Oxygen saturation Oxygen saturation in Arterial blood by Pulse oximetry Systolic blood pressure Diastolic blood pressure Provider Name and Address Organization Details Last Updated DateTime 5 157.48 cm 91 /min 97.2 [degF] 47.7 kg/m2 698376. 61 g 98 % 98 % 148 mm[Hg] 108 mm[Hg] Faina Munoz CMA [facility] [employer] 11:15:58 Social History Question Answer Notes LastModified by Organization Details LastModified Time Tobacco Smoking Status Never Smoker Not Available [facility] 07/24/2022 16:29:25 Do You Have An Advance Directive? Yes MIGRATION.[id number] Information not available 07/24/2022 What Is Your Level Of Alcohol Consumption? Occasional MIGRATION.[id number] Information not available 07/24/2022 Do You Wear A Helmet When Biking? No MIGRATION.030 598457 Information not available 07/24/2022 Are You Blind Or Do You Have Difficulty Seeing? No MIGRATION.030866395 Information not available 07/24/2022 Is Blood Transfusion Acceptable In An Emergency? Yes Information not available 01/28/2023 What Is Your Level Of Caffeine Consumption? None MIGRATION.030 763950 Information not available 07/24/2022 How Much Tobacco Do You Chew? None MIGRATION.0301 040353 Information not available 07/24/2022 In The 14 Days Before Symptom Onset, Have You Had Close Contact With A Laboratory-conf irmed COVID-19 While That Case Was Ill? No MIGRATION.0301 451696 Information not available 07/24/2022 In The 14 Days Before Symptom Onset, Have You Had Close Contact With A Person Who Is Under Investigation For COVID-19 While That Person Was Ill? No MIGRATION.0301 846951 Information not available 07/24/2022 Are You Currently Employed? No Retired Information not available 09/06/2022 Are You Deaf Or Do You Have Serious Difficulty Hearing? No MIGRATION.0301 379936 Information not available 07/24/2022 What Type Of Diet Are You Following? REGULAR MIGRATION.0301 481014 Information not available 07/24/2022 Which Illicit Or Recreational Drugs Have You Used? None MIGRATION.0301 801583 Information not available 07/24/2022 Do You Or Have You Ever Used E-cigarettes Or Vape? Never Used Electronic Cigarettes MIGRATION.0301 435464 Information not available 07/24/2022 Have There Been Any Changes To Your Family Or Social Situation? No MIGRATION.0301 707841 Information not available 07/24/2022 What Is The Fluoride Status Of Your Home? Unknown MIGRATION.0301 808631 Information not available 07/24/2022 Are There Any Guns Present In Your Home? No MIGRATION.0301 880279 Information not available 07/24/2022 Do You Use Insect Repellent Routinely? No MIGRATION.0301 126776 Information not available 07/24/2022 Where Do You Live? SingleLevelHouse With Basement MIGRATION.0301 026716 Information not available 07/24/2022 Do You Have A Medical Power Of Blacking Wheel Tender? Yes MIGRATION.0301 052454 Information not available 07/24/2022 What Was The Date Of Your Most Recent Tobacco Screening? 10/14/2023 [email or web address] Information not available 10/14/2023 How Many Children Do You Have? 4 Information not available 09/06/2022 Have You Ever Been Counseled For Unhealthy Alcohol Use? No MIGRATION.0301 910281 Information not available 07/24/2022 Do You Have Any Pets? Yes MIGRATION.0301 318656 Information not available 07/24/2022 What Is Your Relationship Status? MIGRATION.0301 191659 Information not available 07/24/2022 Do You Use Your Seat Belt Or Car Seat Routinely? Yes MIGRATION.0301 069778 Information not available 07/24/2022 Do You Have Smoke And Carbon Monoxide Detectors In Your Home? Yes MIGRATION.0301 133187 Information not available 07/24/2022 Are You Passively Exposed To Smoke? No MIGRATION.0301 193314 Information not available 07/24/2022 Do You Or Have You Ever Used Smokeless Tobacco? Never Used Smokeless Tobacco MIGRATION.0301 344661 Information not available 07/24/2022 Are There Any Smokers In Your House? No MIGRATION.0301 517864 Information not available 07/24/2022 Do You Participate In Social [place] Social? No MIGRATION.0301 181475 Information not available 07/24/2022 Do You Feel Stressed (tense, Restless, Nervous, Or Anxious, Or Unable To Sleep At Night)? SD51204-9 Information not available 01/28/2023 Do You Use Any Illicit Or Recreational Drugs? No MIGRATION.0301 487347 Information not available 07/24/2022 Do You Use Sunscreen Routinely? No MIGRATION.0301 171204 Information not available 07/24/2022 Has Tobacco Cessation Counseling Been Provided? No MIGRATION.0301 904474 Information not available 07/24/2022 Have You Recently Traveled Abroad? No MIGRATION.0301 102593 Information not available 07/24/2022 Are You Currently In School? No MIGRATION.0301 794003 Information not available 07/24/2022 Do You Have Any Dietary Restrictions? No MIGRATION.0301 643468 Information not available 07/24/2022 Do You Or Have You Ever Used Any Other Forms Of Tobacco Or Nicotine? No MIGRATION.0301 695450 Information not available 07/24/2022 Sex: Female Functional Status Question Answer Note LastModified by Organizat ion Details LastModified Time Do you have difficulty walking or climbing stairs? No MIGRATION.1777336 026 Information not available 07/24/2022 Do you have transportation difficulties? No MIGRATION.5063280 026 Information not available 07/24/2022 Are you able to walk? YESWOREST MIGRATION.8356403 026 Information not available 07/24/2022 Do you have difficulty doing errands alone? No MIGRATION.6896057 026 Information not available 07/24/2022 Are you able to care for yourself? Yes MIGRATION.2201757 026 Information not available 07/24/2022 Do you have difficulty dressing or bathing? No MIGRATION.9881242 026 Information not available 07/24/2022 What is your exercise level? None MIGRATION.3987465 026 Information not available 07/24/2022 Mental Status Question Answer Note LastModified by Organizat ion Details LastModified Time Do you have difficulty concentrating, remembering or making decisions? No MIGRATION.706839530 6 Information not available 07/24/2022 Family History Relationship Description Onset Age of this Age Resolved Age Notes LastModified by Organization Details LastModified Time Brother Heart disease 80 MIGRATION.619 [id number] Not available 07/24/2022 16:29:33 Brother Diabetes mellitus MIGRATION.163 5693166 Not available 07/24/2022 16:29:33 Mother Myocardial infarction 83 MIGRATION.041 6533514 Not available 07/24/2022 16:29:33 Mother Malignant neoplasm of liver MIGRATION.798 1067239 Not available 07/24/2022 16:29:33 Medical History Condition Response CYSTITIS N BLINDNESS N RHEUMATIC FEVER N KIDNEY STONES Y BLADDER PROBLEMS N Enlarged Prostate N SLEEP APNEA N MRSA N INFECTIOUS DISEASE N LUNG DISEASE/DISORDER N HEART ARRHYTHMIA Y PROSTATE N INSOMNIA N HISTORY OF DRUG ABUSE N RADIATION / CHEMOTHERAPY N COPD N HIGH CHOLESTEROL / HYPERLIPIDEMIA N HYPERTHYROIDISM N UTI N BLOOD DISEASES N EDEMA N HYPOTHYROIDISM N SHINGLES N BOWEL PROBLEMS N BACK / NECK PROBLEMS N DEPRESSION (INCLUDING POST ) N HAVE YOU BEEN HOSPITALIZED OR SEEN IN [facility] IN THE PAST YEAR ? N STROKE/TIA N THYROID DISEASE N BENIGN PROSTATIC HYPERPLASIA N DIALYSIS N OBESITY N GERD/NAUSEA N ANEURYSM N OSTEOPOROSIS N URINARY/BLADDER/KIDNEY PROBLEMS N Increased Urination N CORONARY ARTERY DISEASE (CAD) N ARTHRITIS N USE OF BLOOD THINNERS N NO SIGNIFICANT PAST MEDICAL HISTORY N DIABETES, TYPE N EMPHYSEMA N PARKINSON N GASTROINTESTINAL DISORDER N GASTROINTESTINAL BLEEDING N BLOOD CLOTS N Difficulty Urinating N HEPATITIS / LIVER DISEASE N ASTHMA N CATARACTS Y GOUT N SLEEP DISORDER N ALZHEIMER'S DISEASE N HERPES N ERECTILE DYSFUNCTION N SEIZURES/EPILEPSY N HEADACHES/MIGRAINES N GI PROBLEMS N PACEMAKER N Low Testosterone N HEART MURMUR N DIZZINESS N KIDNEY DISEASE N HEART DISEASE/HEART PROBLEMS N AIDS/HIV N MULTIPLE SCLEROSIS N LIVER DISEASE N MALE HYPOGONADISM N HYPERTENSION Y CANCER: SPECIFY Y TOURETTE'S N ANXIETY DISORDER Y BLOOD TRANSFUSION N ANEMIA/BLOOD DISORDER N ANESTHESIA COMPLICATIONS N ATRIAL FIBRILLATION N AUTOIMMUNE DISEASE N [...] quadrivalent, PF 3 completed Judi Perdomo RN [facility], [place] - [facility] [employer] [facility] 01/28/2023 11:38:12 COVID-19, mRNA, LNP-S, PF, 30 mcg/0.3 mL dose 1 completed Not Available [facility] 07/24/2022 16:31:38 COVID-19, mRNA, LNP-S, PF, 100 mcg/0.5mL dose or 50 mcg/0.25mL dose 1 completed Not Available [facility] hospital 07/24/2022 16:31:38 COVID-19, mRNA, LNP-S, PF, 100 mcg/0.5mL dose or 50 mcg/0.25mL dose 1 completed Not Available [facility] hospital 07/24/2022 16:31:38 SARS-COV-2 (COVID-19) vaccine, UNSPECIFIED 2 completed Not Available [facility] 07/24/2022 16:31:38 Influenza, split virus, quadrivalent, preservative 2 completed Not Available [facility] 07/24/2022 16:31:38 COVID-19, mRNA, LNP-S, PF, 100 mcg/0.5mL dose or 50 mcg/0.25mL dose 2 completed Not Available [facility] 07/24/2022 16:31:38 Influenza, high-dose, quadrivalent, PF 1 completed Not Available [facility] 07/24/2022 16:31:38 Past Encounters Encounter ID Performer Location Encounter Start Date Encounter Closed Date Diagnosis/Indication Diagnosis SNOMED-CT Code Diagnosis ICD10 Code Diagnosis Note [id number] [facility] [place] [address] [place] [address] 10/24/2020 00:00:00 10/25/2020 17:31:11 [id number] [facility] [place] [address] [place] [address] 03/02/2021 00:00:00 03/02/2021 16:17:57 [id number] [facility] [place] [address] [place] [address] 03/14/2021 00:00:00 03/16/2021 17:28:24 [id number] [facility] [place] [address] [place] [address] 04/26/2021 00:00:00 04/26/2021 09:33:31 [id number] [facility] [place] [address] [place] [address] 05/02/2021 00:00:00 05/02/2021 14:27:06 [id number] [facility] [address] [address] 05/10/2021 00:00:00 05/10/2021 11:59:55 [id number] [facility] [place] [address] [place] [address] 05/31/2021 00:00:00 05/31/2021 19:12:01 [id number] [facility] [place] [address] [place] [address] 09/18/2021 00:00:00 09/18/2021 10:02:00 [id number] [facility] [address] [address] 11/01/2021 00:00:00 11/01/2021 13:29:15 [id number] [facility] [address] [address] 12/06/2021 00:00:00 12/06/2021 18:36:15 [id number] [facility] [address] [address] 01/03/2022 00:00:00 01/03/2022 10:01:52 [id number] [facility] [place] [address] [facility] [place] [address] 02/18/2022 00:00:00 02/18/2022 18:00:14 [id number] [facility] [place] [address] [place], [place] [address] [place] [address] 03/20/2022 00:00:00 03/20/2022 09:55:33 [id number] [facility] [place] [address] [place], [place] [address] [place] [address] 04/09/2022 00:00:00 04/09/2022 15:19:14 [id number] [facility] [place] [address] [place] [address] 04/24/2022 00:00:00 04/24/2022 15:13:16 [id number] [facility] [address] [address] 05/09/2022 00:00:00 05/09/2022 12:49:39 [id number] [facility] [place] [address] [place], [place] [address] [place] [address] 06/12/2022 00:00:00 06/12/2022 12:21:35 [id number] Judi Herrera NP [facility] [place] [address] [place], [place] [address] [place] [address] 09/06/2022 09:24:33 09/06/2022 09:59:11 Obese [id number] E66.9 Diet and exercise encouraged and recommende d. Recurrent urinary tract infection N39.[address] Chase, urology. Thrombocyt openic disorder 567119546 D69.[address] Squires onc/hem. [id number] Osmany Rachel MD [facility] [address] [facility], [address] [place] [address] 11/21/2022 10:19:48 11/21/2022 11:14:13 Kidney stone 38396591 N20.0 hydrationk ub in a year Recurrent urinary tract infection N39.0 check culturesta rt abx [id number] Judi Herrera NP [address] [address] 12/25/2022 15:09:10 12/25/2022 15:46:01 Tachycardia [id number] R00.0 States her HR has been high for 1 year. Did not mention until now when nurse asked. Starting on propranolo l ER 60 mg po daily. Fu in 1 mo for recheck.Wi ll check EKG on return visit. Fall 2021 Dr. Squires hematrebeca gill did EKG and was normal but fast per patient. Dysuria 19611545 R30.0 Urine dip with small blood, negative nitrates. Sending for culture. Increased blood pressure 55035581 R03.0 Propranolo l ER 60 mg po daily. [id number] Judi Herrera NP [address] [address] 01/28/2023 10:44:14 01/28/2023 11:26:14 Tachycardia 6936227 R00.0 States her HR has been high for 1 year. Did not mention until now when nurse asked. Starting on propranolo l ER 60 mg po daily. Fu in 1 mo for recheck.Wi ll check EKG on return visit. Fall 2021 Dr. Squires hematrbeeca gill did EKG and was normal but fast per patient. 01/28/23. No improvemen t with Propranolo l ER 60 mg, so will refer to cardiology . EKG ordered. Will recheck tsh and BMP. Seeing hematologi st, Dr. Squires, who checks CBC and Plt monitoring . Essential hypertension 90526790 I10 Losartan 50 mg po daily.< 2 gm sodium diet. Administra tion of influenza vaccine 15785540 Z23 [id number] Judi Herrera NP [address] [address] 03/19/2023 09:17:11 03/19/2023 10:00:46 Tachycardia 3629741 R00.0 States her HR has been high [...] Vitals good 03/19/23 in office. Essential hypertension 80675414 I10 Losartan 50 mg po daily.< 2 gm sodium diet.Cardi ology appt in March 2023. Chronic ki dney disease stage 3 581622952 N18.30 Farxiga 10 mg po daily. Pt will try, but let us know at first sign of UTI. [id number] Judi Herrera NP [address] [address] 05/07/2023 14:44:05 05/07/2023 16:02:43 Dysuria 40119338 R30.0 R30.9 Patient was started on antibiotic and advised to increase water intake. [id number] Ottoniel Hopkins MD [address] [address] 06/17/2023 14:03:54 06/17/2023 14:34:26 Dysuria 85113975 R30.0 Urinary tr act infectious disease 29866395 N39.0 Hyperlipidemia 77273058 E78.5 Pt declined for any statin. Obesity 562120821 E66.9 [id number] Ottoniel Hopkins MD [address] [address] 09/25/2023 15:22:55 09/25/2023 16:16:09 Hypertensive disorder 88416969 I10 Chronic ki dney disease stage 3 691438954 N18.30 Morbid obesity 020054806 E66.01 Hyperlipidemia 47654369 E78.5 History of calculus of kidney 475816618 Z87.442 Screening mammography 24 055888 Z12.31 Screening for osteoporosis 761510167 Z13.820 Screening for malignant neoplasm of colon 663885381 Z12.11 Dysuria 52758616 R30.0 [id number] Ottoniel Hopkins MD [address] [address] 10/14/2023 14:59:54 10/14/2023 16:30:23 Adult health examination 154738699 Z00.00 Screening for disorder 384376971 Z13.9 Hypertensive disorder 38 504063 I10 Chronic ki dney disease stage 3 889116339 N18.30 Morbid obesity 154146778 E66.01 Hyperlipidemia 41572367 E78.5 History of calculus of kidney 091273013 Z87.442 Prediabetes 344760844 R7 3.03 [id number] Ottoniel Hopkins MD [address] [address] 12/16/2023 09:40:48 12/16/2023 10:17:58 Hypertensive disorder 42476883 I10 Chronic ki dney disease stage 3 063686614 N18.30 Morbid obesity 688124798 E66.01 History of calculus of kidney 296992128 Z87.442 Prediabetes 631042625 R7 3.03 [id number] Ottoniel Hopkins MD [address] [address] 02/16/2024 09:05:33 02/16/2024 09:35:45 Chronic kidney disease stage 3 327431055 N18.30 Improved Hypertensive disorder 38 255159 I10 Diet controlled Prediabetes 033554085 R7 3.03 Morbid obesity 180190877 E66.01 History of calculus of kidney 357342664 Z87.438 [id number] Ottoniel Hopkins MD [address] [address] 05/17/2024 09:33:21 05/17/2024 10:07:45 Prediabetes 250209339 R73.03 Chronic ki dney disease stage 3 956083615 N18.30 Improved Hypertensive disorder 38 854308 I10 Diet controlled Morbid obesity 553972649 E66.01 History of calculus of kidney 223036416 Z87.639 [id number] Ottoniel Hopkins MD [address] [address] 06/10/2024 15:02:36 06/10/2024 15:50:09 Dysuria 71869663 R30.0 Urge incon tinence of urine 01250361 N39.41 Overactive urinary bladder 871779054 N32.81 [id number] Alexey Levine MD [facility] U[facility] [address], [facility] [place] [address] 06/23/2024 11:05:41 06/23/2024 12:12:24 Herniation of rectum into vagina 647744086 N81.6 Rash of groin 5762627571 7741494 R21 Health Concerns Section Related Observation LastModified by Organization Detai ls LastModified Time None Recorded Concern Status LastModified by Organization Details LastModified Time None Recorded Advance Directives Directive Y: Payers Encounter Date Sequence Insurance Name Policy Number Policy Silver Covered Member ID Silver Member ID Guarantor Name 12/16/2023 1 [facility] (MEDICARE REPLACEMENT/A DVANTAGE - HMO) [id number] Cathy Fink Hellrung [id number] Cathy Fink Hellrung 02/16/2024 1 [facility] (MEDICARE REPLACEMENT/A DVANTAGE - HMO) [id number] Cathy Fink Hellrung [id number] Cathy Fink Hellrung 05/17/2024 1 [facility] (MEDICARE REPLACEMENT/A DVANTAGE - HMO) [id number] Cathy A Hellrung [id number] Cathy A Hellrung 06/10/2024 1 [facility] (MEDICARE REPLACEMENT/A DVANTAGE - HMO) [id number] Cathy A Hellrung [id number] Cathy A Hellrung 06/23/2024 1 [facility] (MEDICARE REPLACEMENT/A DVANTAGE - HMO) [id number] Cathy A Hellrung [id number] Cathy A Hellrung Notes Date Note Type Note Provider Name and Address Organization Details Recorded Time 12/16/2023 text/html Pt is here for f/u on her meds and chronic conditions. Doing overall well. Denies any problem with meds. Pt decided to stop all her meds and wants to see how she does with it. Pt did not start taking Phentermine. Pt has h/o kidney stone and is f/u with Uro for it. Pt is seeing Cardio at [place] and they did testing for her and nothing concerning. Pt denies any chest pain/sob/palpitat ions/sweating episodes. Ottoniel Hopkins MD [address], [place], [address], [employer] 12/16/2023 10:12:06 02/16/2024 text/html Pt is here for f/u on her labs and chronic conditions. Doing overall well. Denies any problem with meds. Pt decided to stop all her meds and wants to see how she does with it. Pt did not start taking Phentermine. Pt has h/o kidney stone and is f/u with Uro for it. Pt is seeing Cardio at [place] and they did testing for her and nothing concerning. Pt denies any chest pain/sob/palpitat ions/sweating episodes. Ottoniel Hopkins MD [address], [place], [address], [place] 02/16/2024 09:34:51 05/17/2024 text/html Pt is here for f/u on her labs and chronic conditions. Doing overall well. Denies any problem with meds. Pt is taking half of Farxiga 10mg and wants to cont that way. Pt is f/u with Nephro at [place] for her CKD. Pt has h/o kidney stone and is f/u with Uro for it. Pt is seeing Cardio at [place] and they did testing for her and nothing concerning. Pt denies any chest pain/sob/palpitat ions/sweating episodes. Ottoniel Hopkins MD [address], [address] [address], [place], [address], [employer] [facility] [employer] 05/17/2024 10:04:05 06/10/2024 text/html ACV: C/o urinary leakage with some activities and pressure sensations over her lower bladder area for last few weeks. Denies any blood in urine, no fever/chills/n/v/ c/d. Ottoniel Hopkins MD [address], [address] [address], [place], [address], [employer] 06/10/2024 15:56:07 06/23/2024 text/html this patient has a very unusual history because she said she was shoveling snow and then after that she started having what she says was stringy type of urination whatever that means. She says she was urinating with 1 good stream. She admits to some leakage of urine which was there even before this all happened. She wears an occasional pad once a day But she then said she was having discomfort with bowel movements and it is hard to see how all this time together. She denies any fevers or chills no nausea vomiting. She has no blood in the urine. She also has a little rash in the left groin area she has been applying powder. She is not a diabetic. Alexey Levine MD [address], [facility] [address], [place], [address], [employer] 06/23/2024 13:06:35 OBGyn Episode No OBEpisode recorded.
--- NOTE | 2024-07-02 20:19 | ECG_ITS ---
Test Date: 2024-07-02 20:22:06 Measurements Intervals [place] Rate: 134 P: 0 ME: 0 QRS: 28 QRSD: 92 T: 42 QT: 337 QTc: 504 Interpretive Statements ATRIAL FLUTTER/TACHYCARDIA WITH RAPID VENTRICULAR RESPONSE INCOMPLETE RIGHT BUNDLE BRANCH BLOCK LOW QRS VOLTAGE IN PRECORDIAL LEADS BASELINE WANDER- I, III, V2-V4 ABNORMAL ECG No previous ECG available for comparison Electronically Signed On 07-03-2024 06:28:47 ERGONOMIC SPECIALIST by Madi Dennis D.O.
--- OUTSIDE RECORDS SUMMARY | 2024-07-02 21:34 | XMS_ITS | Clinical Summary ---
Author Organization [facility] Medical Office Building A Address [address] [place] [address] Care Team Providers Care Auto Rebuilder Name Role Phone Ottoniel Hopkins MD Primary Care Provider [phone] Allergies No known active allergies Medications losartan [...] Department Care Team Description 06/28/2024 9:30 AM MATERIAL MIXER Office Visit [facility] Cardiology [address] [place] [address] Rishabh Barrett MD Tachycardia, unspecified [...] Friends and Family Patient declined 09/04/2018 Attends Taoist Services Patient declined 08/24 Active Member of [...] Paying Living Expenses Patient dec lined 09/04/2018 [facility] of Occupat ional Health - Occupational Stress [...] on file Legal Sex Female 11:25 AM MATERIAL MIXER Gender Identity Not on file Sexual Orientation Not on file Obstetrics History Last Filed Vital Signs Vital Sign Reading Time Taken Comments Blood Pressure 124/100 06/28/2024 9:30 AM MATERIAL MIXER Pulse 136 06/28/2024 9:30 AM MATERIAL MIXER Temperature - - Respiratory Rate - - Oxygen Saturation 93% 10/21/2023 10: 45 AM CDT Inhaled Oxygen Concentration - - Weight 118.9 kg (262 lb 3.2 oz) 06/28/2024 9:30 AM MATERIAL MIXER Height 157.5 cm (5' 2 ) 06/28/2024 9:30 AM MATERIAL MIXER Body Mass Index 47.96 06/28/2024 9:30 AM MATERIAL MIXER Plan of Treatment Health Maintenance Due Date [...] Comments ECG 12-LEAD Routine 06/28/2024 12:20 PM MATERIAL MIXER Atypical atrial flutter (CMS/HCC) (HCC) POCT LIPID PANEL Routine 06/28/2024 10:4 9 AM MATERIAL MIXER Need for lipid screening from Last 3 Months Results * ECG 12 lead (06/28/2024 12:20 PM MATERIAL MIXER) us Rishabh Barrett MD ECG ORDERABLES Final Re sult * POCT lipid panel (06/28/2024 10:49 AM MATERIAL MIXER) Cholesterol, POC 248 mg/dL Comment:GLU = 106 HDL, POC 47 mg/dL Triglycerides, POC 274 mg/dL LDL Cholesterol POC 146 mg/dL Chol/HDL Ratio, POC 3.1 Non-HDL Cholesterol, POC 201 mg/dL Cholesterol Total, POC 248 mg/dL Capillary blood 06/28/2024 1 0:49 AM MATERIAL MIXER Rishabh Barrett MD POINT OF CARE TEST ORDER DAPHNEY Final Result from Last 3 Months Insurance [facility] MDCR HMO REF [facility] HMO REF MEDICARE SOLUTIONS Care Teams Auto Rebuilder Relationship Specialty Start Date End Date Ottoniel Hopkins MD [address] [place] [address] PCP - General Family Medicine 10/21/23
--- OUTSIDE RECORDS SUMMARY | 2024-07-02 21:34 | XMS_ITS | Referral Summary ---
Author Organization [facility] Medical Office Building A Address [address] [place] [address] Care Team Providers Care Cattle Farmer Name Role Phone Ottoniel Hopkins MD Primary Care Provider [phone] Encounters Date Type Department Care Team Description 06/28/2024 9:30 AM MANAGER FRONT OFFICE Office Visit [facility] Cardiology [address] [place] [address] Rishabh Barrett MD Tachycardia, unspecified [...] Friends and Family Patient declined 09/04/2018 Attends Zoroastrian Services Patient declined 08/24 Active Member of [...] Paying Living Expenses Patient dec lined 09/04/2018 [facility] of Occupat ional Health - Occupational Stress [...] on file Legal Sex Female 11:25 AM MANAGER FRONT OFFICE Gender Identity Not on file Sexual Orientation Not on file Last Filed Vital Signs Vital Sign Reading Time Taken Comments Blood Pressure 124/100 06/28/2024 9:30 AM MANAGER FRONT OFFICE Pulse 136 06/28/2024 9:30 AM MANAGER FRONT OFFICE Temperature - - Respiratory Rate - - Oxygen Saturation 93% 10/21/2023 10: 45 AM CDT Inhaled Oxygen Concentration - - Weight 118.9 kg (262 lb 3.2 oz) 06/28/2024 9:30 AM MANAGER FRONT OFFICE Height 157.5 cm (5' 2 ) 06/28/2024 9:3 0 AM MANAGER FRONT OFFICE Body Mass Index 47.96 06/28/2024 9:30 AM MANAGER FRONT OFFICE Plan of Treatment Not on file Procedures Procedure Name Priority Date/Time Associated Diagnosis Comments ECG 12-LEAD Routine 06/28/2024 12:20 PM MANAGER FRONT OFFICE Atypical atrial flutter (CMS/HCC) (HCC) POCT LIPID PANEL Routine 06/28/2024 10:4 9 AM MANAGER FRONT OFFICE Need for lipid screening from Last 3 Months Results * ECG 12 lead (06/28/2024 12:20 PM MANAGER FRONT OFFICE) us Rishabh Barrett MD ECG ORDERABLES Final Re sult * POCT lipid panel (06/28/2024 10:49 AM MANAGER FRONT OFFICE) Cholesterol, POC 248 mg/dL Comment:GLU = 106 HDL, POC 47 mg/dL Triglycerides, POC 274 mg/dL LDL Cholesterol POC 146 mg/dL Chol/HDL Ratio, POC 3.1 Non-HDL Cholesterol, POC 201 mg/dL Cholesterol Total, POC 248 mg/dL Capillary blood 06/28/2024 1 0:49 AM MANAGER FRONT OFFICE Rishabh Barrett MD POINT OF CARE TEST ORDER DAPHNEY Final Result from Last [address] [place] [address] [facility] [place] [address] [facility] HMO [place] [address] Care Teams Cattle Farmer Relationship Specialty Start Date End Date Ottoniel Hopkins MD [address] [id number] PCP - General Family Medicine 10/21/23
--- OUTSIDE RECORDS SUMMARY | 2024-07-02 21:34 | XMS_ITS | CONTINUITY OF CARE DOCUMENT ---
Author Name alex johnson Address Unknown Organization [facility] Address [address] [place] [address] [address] [place] [address] Phone [phone] Care Team Providers Care Field Examiner Name Role Phone Jef Ann MD Unavailable [phone] Jef Ann MD Unavailable [phone] Sharon HOOKERP-BCJudi Unavailable INSURANCE PROVIDERS Payer name Policy type / Coverage type [place] red alliance party ID AARP MEDICARE ADVANTAGE ([facility] COMPLETE PPO) Other [id number]
--- OUTSIDE RECORDS SUMMARY | 2024-07-02 21:34 | XMS_ITS | Clinical Summary ---
Author Organization [facility] [address] Address [address] [place] [address] Care Team Providers Care Stereo Plotter Operator Name Role Phone Ottoniel Hopkins MD Primary Care Provider Allergies Active Allergy Reactions Criticality Noted Date [...] Department Care Team Description 06/30/2024 3:30 PM BUILDING CUSTODIAN Office Visit [facility] Oncology and Hematology [facility] [address] [place] [address] Dominic Squires MD Acute idiopathic thrombocytopenic purpura (CMS/HCC) (Primary Dx) 06/22/2024 External Device Data STL ABSTRACTION Provider, Abstract 06/22/2024 Orders Only [facility] Oncology and Hematology - [place] [address] [facility] [place] [address] Dominic Squires MD 06/16/2024 External Device Data STL ABSTRACTION Provider, Abstract 06/16/2024 External Device Data STL ABSTRACTION Provider, Abstract 05/11/2024 Orders Only [facility] Oncology and Hematology [place] [address] [place] [address] Scanning, Provider 04/14/2024 Orders Only [facility] Oncology and Hematology - [place] [address] [place] [address] Dominic Squires MD from Last [...] on file Legal Sex Female 10:36 AM BUILDING CUSTODIAN Gender Identity Not on file Sexual Orientation Not on file Last Filed Vital Signs Vital Sign Reading Time Taken Comments Blood Pressure 157/101 06/30/2024 3:34 PM BUILDING CUSTODIAN last couple weeks has gone up recently seen carbon rod inserter to figure out what the cause is Pulse 153 06/30/2024 3:34 PM BUILDING CUSTODIAN patient has a heart flutter and sees a carbon rod inserter Temperature 36.3 C (97.3 F) 06/30/2024 3:34 PM BUILDING CUSTODIAN Respiratory Rate 18 06/30/2024 3:34 PM BUILDING CUSTODIAN Oxygen Saturation 95% 10/29/2023 10: 10 AM CDT Inhaled Oxygen Concentration - - Weight 118.4 kg (261 lb) 06/30/2024 3:3 4 PM BUILDING CUSTODIAN Height 157.5 cm (5' 2 ) 03/05/2022 8:51 AM CDT Body Mass Index 47.74 03/05/2022 8:51 AM CDT Plan of Treatment Upcoming Encounters Date Type Department Care Team (Late st Contact Info) Description 12/29/2024 11:45 AM CDT Office Visit [facility] Oncology and Hematology - [place] [address] [place] [address] Dominic Squires MD [address] [facility] [address] [place] [address] Health Maintenance Due Date Last [...] BASIC METABOLIC PANEL Routine 06/21/2024 12:52 PM BUILDING CUSTODIAN HEMOGLOBIN A1C Routine 05/10/2024 12:54 PM BUILDING CUSTODIAN VITAMIN D 25 HYDROXY Routine 04/12/2024 2:04 PM BUILDING CUSTODIAN BASIC METABOLIC PANEL Routine 04/12/2024 12:45 PM BUILDING CUSTODIAN from Last 3 Months Results * BASIC METABOLIC PANEL (06/21/2024 12:52 PM BUILDING CUSTODIAN) Only the most recent of2 resultswithin the time period is included. Blood Dominic Squires MD CHEMISTRY ORDERABLES Final Resu lt * HEMOGLOBIN A1C (05/10/2024 12:54 PM BUILDING CUSTODIAN) Blood Provider Scanning CHEMISTRY ORDERABLES Final Res ult * VITAMIN D 25 HYDROXY (04/12/2024 2:04 PM BUILDING CUSTODIAN) Blood Provider Scanning CHEMISTRY ORDERABLES Final Res ult from Last 3 Months Insurance [facility] [id number] RX [employer] RX Member Subscriber Plan / Payer (Ef fective 2022-Present) Name:KrystalhoneyCathy urrutia Relation to Subscriber:Self Name:KrystalhoneyCathy urrutia Payer ID:Not on file Group ID:[id number] Type:RX Medicare Part D Address: [address] Care Teams Stereo Plotter Operator Relationship Specialty Start Date End Date Ottoniel Hopkisn MD [address] [place] [address] [place] [address] PCP - General Family Practice 10/29/23
[2024-07-02] MEDS: METOPROLOL TARTRATE INJ 5 MG/5 ML VIAL IV PUSH (22:26)
--- NOTE | 2024-07-02 22:34 | ECG_ITS ---
Test Date: 2024-07-02 22:39:18 Measurements Intervals [place] Rate: 57 P: 75 WA: 189 QRS: -4 QRSD: 75 T: 18 QT: 400 QTc: 390 Interpretive Statements SINUS BRADYCARDIA LOW QRS VOLTAGE IN PRECORDIAL LEADS POSSIBLE RIGHT VENTRICULAR CONDUCTION DELAY DELAYED PRECORDIAL R/S TRANSITION CONSIDER INFERIOR INFARCT, AGE INDETERMINATE BORDERLINE T WAVE ABNORMALITY- ANTERIOR LEADS BASELINE ARTIFACT- I, II, III, AVR, AVL Compared to ECG 07/02/2024 20:22:06 Atrial flutter no longer present Electronically Signed On 07-03-2024 06:29:47 DEVELOPMENT TRAINER by Madi Dennis D.O.
--- NOTE | 2024-07-02 22:37 | PC.NURSE ---
Pt given 5mg Metoprolol IVP and pts HR as well as rhythm responded almost instantaneously. Pts HR went dropped from 120s to 50s-60s. Provider made aware, repeat EKG preformed, VORB to hold on 50mg oral dose of metoprolol.
--- NOTE | 2024-07-02 22:42 | ED.GENADULT ---
HPI - General Adult General Chief complaint: Recheck/Abnormal Lab/Rx Stated complaint: high blood pressure Time Seen by Provider: 07/02/24 21:12 History of Present Illness HPI narrative: This is a 74-year-old female presenting for high blood pressure. She had a home health appointment and they noticed her blood pressure was elevated at 1 80/110 and her heart rate was 130. They recommended she come hospital for evaluation. Patient saw her mobile web application developer on Friday at that time was in a flutter a rate of 130. The patient says that she has palpitations several times a day at that time it was assumed that it was intermittent a-flutter. A discussed beta-blockers but did not start them as they thought the episodes were paroxysmal. They also discussed anticoagulation with the patient is chronically thrombocytopenic and is very high bleeding risk. Patient was in a flutter here but was not experiencing palpitations so it is unclear if she is in a flutter at all times or not. Patient's blood pressure was also elevated. She had discontinued her home losartan in October because she thought it made her feel tired. She has been off had per tensions medications since that time. She has no physical complaints at this time and feels well overall. Related Data Home Medications ?Medication ?Instructions ?Recorded ?Confirmed ?Last Taken ?Type cholecalciferol (vitamin D3) 50 50 mcg PO .04/19/24 04/19/24 Unknown History mcg (2,000 unit) capsule dapagliflozin propanediol 10 mg 5 mg PO DAILY 04/19/24 04/19/24 Unknown History tablet (Farxiga) Allergies Allergy/AdvReac Type Severity Reaction Status Date / Time nitrofurantoin AdvReac Intermediate Weakness Verified 04/19/24 13:38 [facility] Past Medical History Medical History Diverticulitis Hyperlipidemia Left ear impacted cerumen Nephrolithiasis Skin cancer Thrombocytopenia Vitamin D deficiency Surgical History Surgical History History of cataract surgery History of local excision of skin lesion Family History Family History Sibling Diabetes mellitus Cerebrovascular accident Father Heart disease Mother Liver cancer Social History Social History Social History: Patient lives at home with her has. She is independent in her daily activities. Her primary care provider is Judi Herrera NP. She does he needs her , Asif, as her surrogate decision maker and she would like to be a full code. Smoking status: Never smoker Second hand tobacco smoke exposure: No Alcohol intake: never Alcohol use details: 6 drinks/year Substance use: never Substance use type: does not use Do You Feel Safe in your Home?: Yes Lack of Transportation: No Lack of Food: Never True Current Housing: I Have Housing Concerned About Future Housing: No Difficulty Paying Gas/Electric Bills: No Difficulty Paying for Meds: No Currently Unemployed: No Education: Associate Degree Difficulty w/ Childcare or Family Care: No Living arrangements: with family Occupation/Education: retired Gender identity (if verbalized by the patient): Female Spiritual care concerns: No Agree to blood products: Yes Exam Narrative: APPEARANCE: No apparent distress. Head: atraumatic. EYES: EOMI, NOSE: Atraumatic NECK: Trachea midline RESPIRATORY: No increased rate of breathing CTAB CARDIOVASCULAR: Tachycardic, no peripheral edema ABDOMINAL: Non-distended MUSCULOSKELETAl: No obvious deformities NEURO: Alert. Moving 4/4 extremities SKIN:: Warm, dry. Normal color PSYCHIATRIC: Normal affect Course Vital Signs Vital signs: Vital Signs Temperature 97.2 F L 07/02/24 20:14 Pulse Rate 136 H 07/02/24 20:14 Respiratory Rate 18 07/02/24 20:14 Blood Pressure 173/121 H 07/02/24 20:14 Pulse Oximetry 97 07/02/24 20:14 Oxygen Delivery Room Air 07/02/24 20:14 Temperature 97.2 F L 07/02/24 20:14 Pulse Rate 114 H 07/02/24 22:59 Respiratory Rate 15 07/02/24 22:25 Blood Pressure 185/137 H 07/02/24 22:25 Pulse Oximetry 100 07/02/24 22:25 Oxygen Delivery Room Air 07/02/24 20:14 Medical Decision Making MDM Narrative Medical decision making narrative: -Course: 74-year-old female a flutter as well as having L of elevated blood pressures. The patient is leaving for month long trip on Friday and does not have time to see her mobile web application developer and does not want to be admitted to the hospital. She is otherwise asymptomatic and resting comfortably in bed. Patient was given a dose of IV Lopressor and given a p.o. dose metoprolol XL. Her heart rate improved. In terms of her blood pressure we have restarted her her 50 mg losartan once daily. Patient is thrombocytopenic <50 and is not a candidate for anticoagulation On re-evaluation patient is resting comfortably in bed. After her rate was controlled we did ambulate around the emergency department she did not have any dizziness or unsteadiness. Patient be discharged and can follow up with her mobile web application developer for further management. -DDX includes but is not limited to: Paroxysmal a flutter, per Min a flutter, essential hypertension Independent EKG interpretation: Rhythm [a flutter], Rate [134], [place] -[normal], [place] -[normal], QRS [narrow], QTC [normal], T waves -[negative for concerning inversions], ST Segments - [Negative for concerning elevations] Final interpretations: A flutter with RVR Vital Signs Vital Signs: Vital Signs Temperature 97.2 F L 07/02/24 20:14 Pulse Rate 136 H 07/02/24 20:14 Respiratory Rate 18 07/02/24 20:14 Blood Pressure 173/121 H 07/02/24 20:14 Pulse Oximetry 97 07/02/24 20:14 Oxygen Delivery Room Air 07/02/24 20:14 Temperature 97.2 F L 07/02/24 20:14 Pulse Rate 114 H 07/02/24 22:59 Respiratory Rate 15 07/02/24 22:25 Blood Pressure 185/137 H 07/02/24 22:25 Pulse Oximetry 100 07/02/24 22:25 Oxygen Delivery Room Air 07/02/24 20:14 Discharge Plan Discharge Clinical Impression: Atrial flutter, Hypertension Patient Disposition: Home, Self-Care Condition: Stable Instructions: Antibiotic Form, Atrial Flutter (DC), Hypertension (ED) Additional Instructions: You were seen in the emergency department for a rapid heart rate and elevated blood pressures. Please start metoprolol XL 50 mg once daily. Please resume your losartan at 50 mg. Please follow-up with your mobile web application developer in her primary care physician for further management. If you develop any new or worsening symptoms return to ED immediately. Patient Language: Citizen Of [place] Prescriptions: New metoprolol succinate [Toprol XL] 50 mg tablet extended release 24 hr 50 mg PO DAILY Qty: 30 0RF No Action dapagliflozin propanediol [Farxiga] 10 mg tablet 5 mg PO DAILY cholecalciferol (vitamin D3) 50 mcg (2,000 unit) capsule 50 mcg PO .- Follow-up/Referrals: Sandeep,MD Ottoniel [Primary Care Provider] -
--- NOTE | 2024-07-02 22:51 | ECG_ITS ---
Test Date: 2024-07-02 22:53:11 Measurements Intervals [place] Rate: 111 P: 0 MD: 0 QRS: -3 QRSD: 94 T: -1 QT: 319 QTc: 434 Interpretive Statements ATRIAL FLUTTER/TACHYCARDIA WITH RAPID VENTRICULAR RESPONSE INCOMPLETE RIGHT BUNDLE BRANCH BLOCK LOW QRS VOLTAGE IN PRECORDIAL LEADS CONSIDER INFERIOR INFARCT, AGE INDETERMINATE BORDERLINE T WAVE ABNORMALITY- ANTERIOR LEADS ABNORMAL ECG Compared to ECG 07/02/2024 22:39:18 Sinus bradycardia no longer present Electronically Signed On 07-03-2024 06:31:25 RESOURCE RECOVERY ENGINEER by Madi Dennis D.O.
[2024-07-02] MEDS: METOPROLOL SUCCINATE EXT REL 50 MG TABCR PO (22:59)
[2024-07-02] MEDS: LOSARTAN POTASSIUM 50 MG TABLET PO (23:02)
== END 2024-07-03 00:06 | disposition home or self-care (01) ==
PROVIDERS: Emergency Provider Emergency Medicine; PCP Family Medicine
DX: I48.92 Unspecified atrial flutter (principal); I10 Essential (primary) hypertension; E78.5 Hyperlipidemia, unspecified; E55.9 Vitamin D deficiency, unspecified; D69.6 Thrombocytopenia, unspecified; Z87.442 Personal history of urinary calculi; Z85.828 Personal history of other malignant neoplasm of skin; Z98.49 Cataract extraction status, unspecified eye; Z79.899 Other long term (current) drug therapy; I45.10 Unspecified right bundle-branch block; R94.31 Abnormal electrocardiogram [ECG] [EKG]; R00.1 Bradycardia, unspecified
CPT/HCPCS: 93005; 96374; 99284; A9270

== ENCOUNTER 2024-11-08 09:59 | Outpatient (CLI) | payer MEDICARE, SELFPAY ==
--- OUTSIDE RECORDS SUMMARY | 2024-11-08 10:46 | XMS_ITS | Data Portability ---
Author Organization [facility] [place], Main Office Address [address] [place] [address] Care Team Providers Care Crts Name Role Phone OTTONIEL HOPKINS Primary Care Provider OTTONIEL HOPKINS Referring Provider OTTONIEL HOPKINS Primary Care Provider [phone] Assessment Encounter Date Assessment Date Assessment LastModified by Organization Details LastModified Time 06/10/2024 06/10/2024 Explained about different options for her. [email or web address] Not available 06/10/2024 15:35:40 09/02/2024 09/02/2024 D/w pt about her findings and further plan of care. Answered all questions for her. Home BP log review with pt. Cut down on Losartan to 25mg and Metoprolol to 25mg per day and continue to monitor BP BID at home. Advised pt to contact her Cardio/Nephro about this too. Educated pt about alarming symptoms to monitor at home. F/u in 1-2 weeks if any concern; Otherwise on 10/04/24. [email or web address] Not available 09/02/2024 10:37:01 10/04/2024 10/04/2024 74 yo F with - WELL ADULT VISIT - PRE-DM, improved - HTN (diet controlled) - CKD III, improved - HLD - H/O KIDNEY STONE - MORBID OBESITY III HbA1c: 6.2(10/06/23) - 6.4(02/09/24) - 6.1(05/10/24) CXR: 10/21/23. Annual labs: 10/06/23. D/w pt about her findings, recent labs & imagines and further plan of care. Will do routine labs. Pt still declined for Metformin. Meds as [...] pt. Pt declined. Mammo - 11/03/23, normal. Ordered. DEXA - 11/03/23, normal. Colonoscopy - 18 yrs ago. Pt declined. Cologuard 10/14/23, neg. Flu - 02/16. Tdap - 2021. Pneumo - Pt got it. Shingrix - Pt got it. F/u in 2-3 weeks. Annual labs in 10/18. [email or web address] Not available 10/04/2024 10:29:47 10/19/2024 10/19/2024 74 yo F with - HLD, uncontrolled - HTG, uncontrolled - PRE-DM, uncontrolled - HTN - CKD III, improved - THROMBOCYTOPENI A, chronic - H/O KIDNEY STONE - MORBID OBESITY III HbA1c: 6.2(10/06/23) - 6.4(02/09/24) - 6.1(05/10/24) - 6.4(10/04/24) Annual labs: 10/04/24. CXR: 10/21/23. Annual labs: 10/06/23. D/w pt about her findings, recent labs & imagines and further plan of care. Pt still declined for Metformin. All meds verified with pt. Meds as directed. Diet and exercise explained in detail. BP diary education given. Cont f/u with Nephro as per schedule. Cont f/u with Cardio as per schedule. Cont f/u with Uro as per schedule. Cont f/u with Ophtho as per schedule. Cont f/u with Derm as per schedule. Pt did not want to take Phentermine. HM: WWE - 15 yrs ago, normal as per pt. Pt declined. Mammo - 11/03/23, normal. Ordered. DEXA - 11/03/23, normal. Colonoscopy - 18 yrs ago. Pt declined. Cologuard 10/14/23, neg. Flu - 02/16. Tdap - 2021. Pneumo - Pt got it. Shingrix - Pt got it. F/u in 3-4 months. Lipids, A1c in 01/17. Annual labs in 10/18. [email or web address] Not available 10/19/2024 12:41:02 Plan of Treatment Reminders Order Date Submit Date Provider Last Modified By Organization Details Last Modified Time Details Appointments Any 15 2024 09:30A M Ottoniel Hopkins MD Not available Not available Not available Lab lipid panel, serum [email or web address] (Lab), [address] [place], [address], 10/19/2024 12:25:41 glycohemo globin, total, blood [email or web address] (Lab), [address] [place], [address], 10/19/2024 12:25:40 CBC w/ auto diff [address] (Lab), [address] [place], [address], 10/04/2024 17:44:46 CMP, serum or plasma [address] (Lab), [address] [place], [address], 10/12/2024 15:21:31 urinalysi s complete, reflex culture [address] (Lab), [address] [place], [address], 10/04/2024 17:45:40 glycohemo globin, total, blood 2024 025 FLAKO [facility] (Lab), [address] [place], [address], 11/03/2024 04:18:25 lipid panel, serum [address] (Lab), [address] [place], [address], 10/11/2024 16:10:16 vitamin D, 25-hydrox y, total, serum [address] (Lab), [address] [place], [address], 10/11/2024 16:10:15 TSH, serum or plasma [address] (Lab), [address] [place], [address], 10/11/2024 16:10:16 urinalysi s, dipstick 2024 [facility], [address] [place], [address], 06/10/2024 15:44:13 Referral urologist referral - Please call patient to schedule an appointme nt. Thank you. 2024 [email or web address] [facility], [address], [place], [address], 06/23/2024 14:11:17 Procedures None recorded. Surgeries None recorded. Imaging MAMMO, screening , bilateral 2024 [email or web address] [facility], [address], [place], [address], 10/21/2024 10:17:41 Medication Orders atorvasta tin 10 mg tablet 2024 [facility], [address] [facility] [address], [place], [place], [id number], 10/19/2024 12:32:22 losartan 25 mg tablet 2024 025 [facility] #14728, [address] [facility], [place], [place], [id number], 10/19/2024 12:32:24 metoprolo l succinate ER 25 mg tablet,ex tended release 24 hr 2024 025 [facility], [address] [facility] [address], [place], [place], [id number], 10/19/2024 12:32:25 Farxiga 10 mg tablet 2024 025 [facility] #82739, [address] [facility] [address], [place], [place], [id number], 10/19/2024 12:32:23 losartan 25 mg tablet 2024 [facility]61258, [address] [facility] [address], [place], [place], [id number], 10/04/2024 10:11:51 metoprolo l succinate ER 25 mg tablet,ex tended release 24 hr 2024 [facility]76149, [address] [facility] [address], [place], [place], [id number], 10/04/2024 10:11:23 Farxiga 10 mg tablet 2024 [facility]15, [address] [facility] [address], [place], [place], [id number], 10/04/2024 10:11:51 Patient TargetsNo targets recorded. Patient Instructions Encounter Date Encounter Id Patient Instructions Last Modified By Organization Details Last Modified Time 06/23/2024 [id number] 1. I recommend starting on a stool softener such as MiraLax to see if that helps the symptomatic rectocele 2. She will use nystatin powder for the rash in the left groin 3. We will schedule for a telehealth in about 3-4 weeks if she is improved [email or web address] Not available 06/23/2024 13:06:15 09/02/2024 [id number] high blood pressure: care instructions [email or web address] Not available 09/02/2024 10:38:03 dash diet: care instructions Not available 09/02/2024 10:38:03 10/04/2024 [id number] high blood pressure: care instructions [email or web address] Not available 10/04/2024 10:11:14 prediabetes: car e instructions [email or web address] Not available 10/04/2024 10:11:14 When You Want to Lose Weight: Care Instructions [email or web address] Not available 10/04/2024 10:11:14 10/19/2024 [id number] high cholesterol : care instructions Not available 10/19/2024 12:25:40 high blood pressure: care instructions [email or web address] Not available 10/19/2024 12:25:41 prediabetes: car e instructions [email or web address] Not available 10/19/2024 12:25:41 When You Want to Lose Weight: Care Instructions [email or web address] Not available 10/19/2024 12:25:41 Reason for Referral Urologist Referral for Urge incontinence of urine Please call patient to schedule an appointment. Thank you. Referring Physician: Ottoniel Hopkins, Family Medicine, Encounter Date: 06/10/2024 Results Created Date Observation Date Name Description Value Unit Range Abnormal Flag Note LastModifiedBy Organization Detail LastModifiedTime 06/10/1906/10/2024 urina lysis , dipst ick Leukocytes (reference range: negative marcia/ l) Negati ve Not Available [address], [address], 06/10/2024 15:25:06 06/10/19 25 06/10/2024 urina lysis , dipst ick Nitrite (reference rage: negative mg/dl) negati ve Not Available [address], [address], 06/10/2024 15:25:06 06/10/19 25 06/10/2024 urina lysis , dipst ick Urobilinogen (reference range: 0.2-1 mg/dl) 0.2 Not Available [address], [address], 06/10/2024 15:25:06 06/10/19 25 06/10/2024 urina lysis , dipst ick Protein (reference range: negative mg/dl) Negati ve Not Available [address], [address], 06/10/2024 15:25:06 06/10/19 25 06/10/2024 urina lysis , dipst ick pH (reference range: 5-7) 6.0 Not Available [address], [address], 06/10/2024 15:25:06 06/10/19 25 06/10/2024 urina lysis , dipst ick Blood (reference range: negative Fidel/ l) Modera te Not Available [address], [address], 06/10/2024 15:25:06 06/10/19 25 06/10/2024 urina lysis , dipst ick Specific [place] (reference range: 1.005-1.030) 1.015 Not Available [address], [address], 06/10/2024 15:25:06 06/10/19 25 06/10/2024 urina lysis , dipst ick Ketone (reference range: negative mg/dl) Negati ve Not Available [address], [address], 06/10/2024 15:25:06 06/10/19 25 06/10/2024 urina lysis , dipst ick Bilirubin (reference range: negative mg/dl) Negati ve Not Available [address], [address], 06/10/2024 15:25:06 06/10/19 25 06/10/2024 urina lysis , dipst ick Glucose (reference range: negative mg/dl) 500 Not Available [address], [address], 06/10/2024 15:25:06 06/10/19 25 06/10/2024 urina lysis , dipst ick Appearance Slight ly Cloudy Not Available [address], [address], 06/10/2024 15:25:06 06/10/19 25 06/10/2024 urina lysis , dipst ick Color Yellow Not Available [address], [address], 06/10/2024 15:25:06 Result Notes None recorded. Problems Name Problem SNOMED Code Status Onset Date Resolution Date Notes Provider Name and Address Organization Details Recorded Time Menopause present 842145526 Active Not Available [facility] 3 16:30:16 Thrombocyt openic disorder 845653896 Active 2021 Not Available [employer] 3 16:30:17 Candidal vulvovagin itis 19721103 Active 2021 Not Available [employer] 3 16:30:17 Kidney stone 04877202 Active 2022 Ruthann rao, [employer] [facility] [employer] 3 11:27:55 Tachycardi a 9446044 Active 2022 Judi Herrera, WINNIE [address] [facility], [facility] [address], [place], [address] , [facility] [employer] [facility] [employer] 3 15:31:18 Chronic kidney disease stage 3 551954820 Active 2022 Judi Herrera NP [address], [place], [address] , [facility] [employer] [facility] 3 10:07:46 Hyperlipid emia 00446691 Active 2023 Ottoniel Hopkins MD [address], [place], [address] , [facility] [employer] [facility] [employer] [facility] 4 14:23:55 Hypertensi ve disorder 30572340 Active 2023 Ottoniel Hopkins MD [address], [place], [address] , [facility] [employer] [facility] [employer] [facility] 4 15:25:48 Morbid obesity 441531369 Active 2023 Ottoniel Hopkins MD [address] [employer], [place], [address] , [facility] [employer] [facility] [employer] [facility] 4 15:25:59 Dysuria 20565044 Active 2023 Ottoniel Hopkins MD [address] [employer], [place], [address] , [facility] [employer] [facility] [employer] [facility] 4 15:59:24 Prediabete s 811630354 Active 2023 Ottoniel Hopkins MD [address], [employer], [place], [address] , [facility] [employer] [facility] [employer] [facility] 4 15:30:04 Urge incontinen ce of urine 71940413 Active 2024 Ottoniel Hopkins MD [address], [place], [address] , [facility] [employer] [facility] [employer] [facility] 5 15:27:04 Overactive urinary bladder 833785745 Active 2024 Ottoniel Hopkins MD [address], [place], [address] , [facility] [employer] [facility] [place] 5 15:55:35 Herniation of rectum into vagina 343713842 Active 2024 Alexey Levine MD [address], [address], [address] , [facility] [employer] [facility] [employer] 5 13:05:15 Rash of groin 9744318572988 4108 Active 2024 Alexey Levine MD [address] [facility], [address], [address] , [facility] [employer] [facility] [employer] 5 13:05:33 Candidiasi s of skin 99648686 Active 2024 Alexey Levine MD [address] [facility], [address], [address] , [facility] [employer] [facility] [employer] 5 08:42:09 Cardiac arrhythmia 722662842 Active 2024 Ottoniel Hopkins MD [address], [address], [address] , [facility] [employer] [facility] [employer] 5 10:37:31 Mixed hyperlipid emia 081059149 Active 2024 Ottoniel Hopkins MD [address] [facility], [address], [address] , [facility] [employer] [facility] [employer] 5 12:23:03 Hypertrigl yceridemia 570585617 Active 2024 Ottoniel Hopkins MD [address], [address] , [facility] [employer] [facility] [employer] 5 12:23:14 Notes:skin cancer; lower rt leg Problem Notes None recorded. Procedures Surgical History Date Name Laterality Status Provider Name and Address Organization Details Recorded Time 4 Medicare Wellness CPT Code, subsequent completed Raul Mackey [employer] [facility] [employer] 10/14/2023 15:11:40 2 Most Recent Mammogram completed Judi Perdomo RN [facility] [employer] 09/06/2022 09:39:30 Skin Graft completed Not Available [employer] 07/24/2022 16:29:33 Cataract Surgery completed Not Available [facility] 07/24/2022 16:29:33 Imaging Results None recorded. Procedure Notes None recorded. Medical Equipment None Reported. Allergies Allergen ID Allergen Name Allergen Category Reaction Reaction Severity Criticality Documentation Date Start Date Code Code System Note Provider Name and Address Organization Details Recorded Time 47626 Bactrim medicatio n Not available Not available Not available 07/24/2022 27159 9 RxNorm Not Available [facility] 16:31:40 Medications Name Sig Start Date Stop Date Status Note LastModified by Organization Details LastModified Time losartan 50 mg tablet TAKE 1 TABLET BY MOUTH EVERY DAY 10/19 completed Not Available Not Available Not Available prednison e 10 mg tablet TAKE 60MG TWICE DAILY. TAPER BY 10MG EVERY THIRD DAY. 11/01 completed Not Available Not Available Not Available atorvasta tin 10 mg tablet TAKE 1 TABLET BY MOUTH DAILY AT BEDTIME active Not Available Not Available No t Available fluconazo le 150 mg tablet TAKE 1 TABLET BY MOUTH EVERY DAY FOR 1 DAY DIRECTED 09/24 completed Not Available Not Available Not Available metoprolo l succinate ER 50 mg tablet,ex tended release 24 hr TAKE 1 TABLET BY MOUTH EVERY DAY DIRECTED active Not Available Not Available No t Available phenazopy ridine 200 mg tablet Take [...] completed Not Available Not Available Not Available losartan 25 mg tablet TAKE 1 TABLET BY MOUTH DAILY DIRECTED . active Not Available Not Available No t Available metoprolo l succinate ER 25 mg tablet,ex tended release 24 hr TAKE 1 TABLET BY MOUTH DAILY DIRECTED . active Not Available Not Available No t Available methylpre dnisolone 4 mg tablets in [...] completed Not Available Not Available Not Available [place] 3 Fish Oil capsule Take by oral route. 11/21 completed Not Available Not Available Not Available Saline Nasal 0.65 % spray aerosol USE 2 SPRAYS IN EACH NOSTRIL EVERY 4 HOURS 11/01 completed Not Available Not Available Not Available iron 65 mg 09/06 completed Not Available Not Available Not Available Vitamin D3 take mon/wed/ fri 2023 active 50mcg (2,000 IU) Not Available Not Available Not Available B-100 Complex 09/06 completed Not Available Not Available Not Available Azo 09/06 completed Not Available Not Available Not Available Zostavax (PF) 19,400 unit/0.65 mL subcutane ous suspensio n active Not Available Not Available Not Available Promacta 50 mg tablet 09/06 completed Not Available Not Available Not Available Farxiga 10 mg tablet TAKE 1 TABLET BY MOUTH EVERY DAY AT BEDTIME active Not Available Not Available No t Available Centrum Silver Women 11/21 completed Not Available [...] completed Not Available Not Available Not Available Klayesta 100,000 unit/gram topical powder APPLY TO AFFECTED AREAS BY TOPICAL ROUTE TWICE DAILY active Not Available Not Available No t Available Vitals Date Recorded Heart rate Provider Name an d Address Organization Details Last Updated DateTime 06/10/2024 96 /min Janneth Samuel [address] [facility] [address], [place], [address], [facility] [employer] 06/10/2024 15:23:08 Date Recorded Body height Body mass index (BMI) Body weight Body temperature Oxygen saturation Oxygen saturation in Arterial blood by Pulse oximetry Systolic blood pressure Diastolic blood pressure Provider Name and Address Organization Details Last Updated DateTime 5 157.48 cm 48.1 kg/m2 868598. 14 g 97 [degF] 95 % 95 % 142 mm[Hg] 98 mm[Hg] Zandra Goodwin RN [facility] [employer] 15:13:28 Date Recorded Body height Heart rate Body temperature Body mass index (BMI) Body weight Oxygen saturation Oxygen saturation in Arterial blood by Pulse oximetry Systolic blood pressure Diastolic blood pressure Provider Name and Address Organization Details Last Updated DateTime 157.48 cm 91 /min 97.2 [degF] 47.7 kg/m2 382780. 61 g 98 % 98 % 148 mm[Hg] 108 mm[Hg] Faina Munoz CMA [facility] [employer] 11:15:58 Date Recorded Oxygen saturation Oxygen saturation in Arterial blood by Pulse oximetry Provider Name and Address Organization Details Last Updated DateTime 09/02/2024 97 % 97 % Ottoniel Hopkins MD [address] [facility] [address], [address], [place] [employer] [facility] [employer] 09/02/2024 10:19:45 Date Recorded Body height Body mass index (BMI) Body weight Body temperature Heart rate Systolic blood pressure Diastolic blood pressure Provider Name and Address Organization Details Last Updated DateTime 157.48 cm 46.9 kg/m2 450749. 1 g 97 [degF] 66 /min 120 mm[Hg] 70 mm[Hg] Zandra Goodwin RN [facility] [place] 10:15:57 Date Recorded Oxygen saturation Oxygen saturation in Arterial blood by Pulse oximetry Provider Name and Address Organization Details Last Updated DateTime 10/04/2024 95 % 95 % Ottoniel Hopkins MD [address], [address], [place] [employer] [facility] [employer] 10/04/2024 10:28:47 Date Recorded Body height Body mass index (BMI) Body weight Body temperature Heart rate Systolic blood pressure Diastolic blood pressure Provider Name and Address Organization Details Last Updated DateTime 157.48 cm 47.7 kg/m2 791511. 61 g 97 [degF] 55 /min 130 mm[Hg] 70 mm[Hg] Zandra Goodwin RN [facility] [employer] 10:03:13 Date Recorded Body height Body mass index (BMI) Body weight Body temperature Oxygen saturation Oxygen saturation in Arterial blood by Pulse oximetry Heart rate Systolic blood pressure Diastolic blood pressure Provider Name and Address Organization Details Last Updated DateTime 157.48 cm 47.8 kg/m2 627611. 06 g 97.1 [degF] 95 % 95 % 58 /min 110 mm[Hg] 68 mm[Hg] Zandra Goodwin RN [place] [facility] [employer] 5 12:18:23 Social History Question Answer Notes LastModified by Organization Details LastModified Time Tobacco Smoking Status Never Smoker Not Available [employer] 07/24/2022 16:29:25 Do You Have An Advance Directive? Yes MIGRATION.030 [id number] Information not available 07/24/2022 Do You Wear A Helmet When Biking? No MIGRATION.030 [id number] Information not available 07/24/2022 Are You Blind Or Do You Have Difficulty Seeing? No MIGRATION.030 [id number] Information not available 07/24/2022 Is Blood Transfusion Acceptable In An Emergency? Yes Information not available 01/28/2023 What Is Your Level Of Caffeine Consumption? None MIGRATION.030 [id number] Information not available 07/24/2022 How Much Tobacco Do You Chew? None MIGRATION.030 [id number] Information not available 07/24/2022 In The 14 Days Before Symptom Onset, Have You Had Close Contact With A Laboratory-confi rmed COVID-19 While That Case Was Ill? No MIGRATION.030 [id number] Information not available 07/24/2022 In The 14 Days Before Symptom Onset, Have You Had Close Contact With A Person Who Is Under Investigation For COVID-19 While That Person Was Ill? No MIGRATION.030 [id number] Information not available 07/24/2022 Are You Deaf Or Do You Have Serious Difficulty Hearing? No MIGRATION.030 [id number] Information not available 07/24/2022 What Type Of Diet Are You Following? REGULAR MIGRATION.030 [id number] Information not available 07/24/2022 Which Illicit Or Recreational Drugs Have You Used? None MIGRATION.030 [id number] Information not available 07/24/2022 Have There Been Any Changes To Your Family Or Social Situation? No MIGRATION.0301 [id number] Information not available 07/24/2022 What Is The Fluoride Status Of Your Home? Unknown MIGRATION.030 [id number] Information not available 07/24/2022 Are There Any Guns Present In Your Home? No MIGRATION.0301 [id number] Information not available 07/24/2022 Do You Use Insect Repellent Routinely? No MIGRATION.030 [id number] Information not available 07/24/2022 Where Do You Live? SingleLevelHouse With Basement MIGRATION.0301 [id number] Information not available 07/24/2022 Do You Have A Medical Power Of Home Health Billing Specialist? Yes MIGRATION.0301 [id number] Information not available 07/24/2022 What Was The Date Of Your Most Recent Tobacco Screening? 10/14/2023 [email or web address] Information not available 10/14/2023 How Many Children Do You Have? 4 Information not available 09/06/2022 Have You Ever Been Counseled For Unhealthy Alcohol Use? No MIGRATION.0301 [id number] Information not available 07/24/2022 Do You Have Any Pets? Yes MIGRATION.0301 [id number] Information not available 07/24/2022 What Is Your Relationship Status? MIGRATION.0301 [id number] Information not available 07/24/2022 Do You Use Your Seat Belt Or Car Seat Routinely? Yes MIGRATION.0301 [id number] Information not available 07/24/2022 Do You Have Smoke And Carbon Monoxide Detectors In Your Home? Yes MIGRATION.0301 [id number] Information not available 07/24/2022 Are You Passively Exposed To Smoke? No MIGRATION.0301 [id number] Information not available 07/24/2022 Are There Any Smokers In Your House? No MIGRATION.0301 [id number] Information not available 07/24/2022 Do You Participate In Social Media? No MIGRATION.0301 [id number] Information not available 07/24/2022 Do You Use Sunscreen Routinely? No MIGRATION.0301 070236 Information not available 07/24/2022 Has Tobacco Cessation Counseling Been Provided? No MIGRATION.0301 017577 Information not available 07/24/2022 Have You Recently Traveled Abroad? No MIGRATION.0301 [id number] Information not available 07/24/2022 Do You Have Difficulty Walking Or Climbing Stairs? No MIGRATION.0301 [id number] Information not available 07/24/2022 Are You Currently In School? No MIGRATION.0301 022818 Information not available 07/24/2022 Do You Have Any Dietary Restrictions? No MIGRATION.0301 [id number] Information not available 07/24/2022 Sex: Female Functional Status Question Answer Note LastModified by Organizat ion Details LastModified Time Do you use any illicit or recreational drugs? No MIGRATION.70788 [id number] Information not available 07/24/2022 Do you or have you ever used any other forms of tobacco or nicotine? No MIGRATION.76948 [id number] Information not available 07/24/2022 What is your level of alcohol consumption? Occasional MIGRATION.65520 75672 Information not available 07/24/2022 Do you or have you ever used smokeless tobacco? Never used smokeless tobacco MIGRATION.63866 93745 Information not available 07/24/2022 Are you currently employed? No retired Information not available 09/06/2022 Do you have transportation difficulties? No MIGRATION.90299 07385 Information not available 07/24/2022 Are you able to walk? YESWOREST MIGRATION.59066 06461 Information not available 07/24/2022 Do you have difficulty doing errands alone? No MIGRATION.39489 18625 Information not available 07/24/2022 Are you able to care for yourself? Yes [id number] Information not available 07/24/2022 Do you have difficulty dressing or bathing? No [id number] Information not available 07/24/2022 Do you or have you ever used e-cigarettes or vape? Never used electronic cigarettes MIGRATION.[id number] Information not available 07/24/2022 What is your exercise level? None MIGRATION.48490 [id number] Information not available 07/24/2022 Mental Status Question Answer Note LastModified by Organizat ion Details LastModified Time Do you feel stressed (tense, restless, nervous, or anxious, or unable to sleep at night)? [id number] Information not available 01/28/2023 Do you have difficulty concentrating, remembering or making decisions? No [id number] Information not available 07/24/2022 Family History Relationship Description Onset Age of this Age Resolved Age Notes LastModified by Organization Details LastModified Time Brother Heart disease 80 [id number] [id number] Not available 07/24/2022 16:29:33 Brother Diabetes mellitus MIGRATION.627 [id number] Not available 07/24/2022 16:29:33 Mother Myocardial infarction 83 MIGRATION.526 [id number] Not available 07/24/2022 16:29:33 Mother Malignant neoplasm of liver [id number].253 [id number] Not available 07/24/2022 16:29:33 Medical History Condition [...] HAVE YOU BEEN HOSPITALIZED OR SEEN IN THE MEDICAL CENTER IN THE PAST YEAR ? N STROKE/TIA [...] quadrivalent, PF 3 completed Judi Perdomo RN null, [place] - [place] [facility] 01/28/2023 11:38:12 COVID-19, mRNA, LNP-S, PF, 30 mcg/0.3 mL dose 1 completed Not Available [facility] 07/24/2022 16:31:38 COVID-19, mRNA, LNP-S, PF, 100 mcg/0.5mL dose or 50 mcg/0.25mL dose 1 completed Not Available [facility] 07/24/2022 16:31:38 COVID-19, mRNA, LNP-S, PF, 100 mcg/0.5mL dose or 50 mcg/0.25mL dose 1 completed Not Available [facility] 07/24/2022 16:31:38 SARS-COV-2 (COVID-19) vaccine, UNSPECIFIED 2 completed Not Available [facility] 07/24/2022 16:31:38 Influenza, split virus, quadrivalent, preservative 2 completed Not Available [facility] 07/24/2022 16:31:38 COVID-19, mRNA, LNP-S, PF, 100 mcg/0.5mL dose or 50 mcg/0.25mL dose 2 completed Not Available [facility] 07/24/2022 16:31:38 Influenza, high-dose, quadrivalent, PF 1 completed Not Available [facility] 07/24/2022 16:31:38 Past Encounters Encounter ID Performer Location Encounter Start Date Encounter Closed Date Diagnosis/Indication Diagnosis SNOMED-CT Code Diagnosis ICD10 Code Diagnosis Note [id number] Ottoniel Hopkins MD [address] [address] 1 10/24/2020 00:00:00 10/25/2020 17:31:11 [id number] Ottoneil Hopkins MD [address] [address] 1 03/02/2021 00:00:00 03/02/2021 16:17:57 [id number] Ottoniel Hopkins MD [facility] [address] [place] [address]2-255 1 03/14/2021 00:00:00 03/16/2021 17:28:24 [id number] Ottoniel Hopkins MD [address] [address] 1 04/26/2021 00:00:00 04/26/2021 09:33:31 [id number] Ottoniel Hopkins MD [address] [address] 1 05/02/2021 00:00:00 05/02/2021 14:27:06 [id number] Osmany Rachel MD [facility] [address] [place] [address]402 1 05/10/2021 00:00:00 05/10/2021 11:59:55 [id number] Ottoniel Hopkins MD [facility] [address] [place] [id number] 1 05/31/2021 00:00:00 05/31/2021 19:12:01 [id number] Ottoniel Hopkins MD [facility] [address] [place] [address]03-816 1 09/18/2021 00:00:00 09/18/2021 10:02:00 [id number] Osmany Rachel MD [facility] [address] [place] [id number] 1 11/01/2021 00:00:00 11/01/2021 13:29:15 [id number] Osmany Rachel MD [facility] [address] [place] [address] [id number] 1 12/06/2021 00:00:00 12/06/2021 18:36:15 [id number] Osmany Rachel MD [facility] [address] [place] [address] [id number] 1 01/03/2022 00:00:00 01/03/2022 10:01:52 [id number] Ottoniel Hopkins MD [facility] [address] [place] [id number] 1 02/18/2022 00:00:00 02/18/2022 18:00:14 [id number] Ottoniel Hopkins MD [facility] [address] [place] [address] [id number] 1 03/20/2022 00:00:00 03/20/2022 09:55:33 [id number] Ottoniel Hopkins MD [address] [address] 1 04/09/2022 00:00:00 04/09/2022 15:19:14 [id number] Ottoniel Hopkins MD [address] 9[address]82-293 1 04/24/2022 00:00:00 04/24/2022 15:13:16 [id number] Osmany Rachel MD [facility] [address] [place] [address] 71448-798 1 05/09/2022 00:00:00 05/09/2022 12:49:39 [id number] Ottoniel Hopkins MD [address] 6[address]40-397 1 06/12/2022 00:00:00 06/12/2022 12:21:35 [id number] Judi Herrera NP [address] [address] 1 09/06/2022 09:24:33 09/06/2022 09:59:11 Obese 697748403 E66.9 Diet and exercise encouraged and recommende d. Recurrent urinary tract infection 522105324 N39.[address] Chase, urology. Thrombocyt openic disorder 605160041 D69.[address] Squires onc/hem. [id number] Osmany Rachel MD [facility] [address] [place] [address] 72466-969 1 11/21/2022 10:19:48 11/21/2022 11:14:13 Kidney stone 64073437 N20.0 hydrationk ub in a year Recurrent urinary tract infection 427280570 N39.0 check culturesta rt abx [id number] Judi Herrera NP [address] [id number] 1 12/25/2022 15:09:10 12/25/2022 15:46:01 Tachycardia 0585310 R00.0 States her HR has been high for 1 year. Did not mention until now when nurse asked. Starting on propranolo l ER 60 mg po daily. Fu in 1 mo for recheck.Wi ll check EKG on return visit. Fall 2021 Dr. Shaw gill did EKG and was normal but fast per patient. Dysuria 81905410 R30.0 Urine dip with small blood, negative nitrates. Sending for culture. Increased blood pressure 56641246 R03.0 Propranolo l ER 60 mg po daily. [id number] Judi Herrera NP [place] [address] 1 01/28/2023 10:44:14 01/28/2023 11:26:14 Tachycardia 6963041 R00.0 States her HR has been high [...] CBC and Plt monitoring . Essential hypertension 71079345 I10 Losartan 50 mg po daily.< 2 gm sodium diet. Administra tion of influenza vaccine 11936202 Z23 [id number] Judi Herrera NP [place] [address] 1 03/19/2023 09:17:11 03/19/2023 10:00:46 Tachycardia 1818468 R00.0 States her HR has been high [...] Vitals good 03/19/23 in office. Essential hypertension 83738020 I10 Losartan 50 mg po daily.< 2 gm sodium diet.Cardi ology appt in March 2023. Chronic ki dney disease stage 3 557238723 N18.30 Farxiga 10 mg po daily. Pt will try, but let us know at first sign of UTI. [id number] Judi Herrera NP [place] [address] 1 05/07/2023 14:44:05 05/07/2023 16:02:43 Dysuria 21961482 R30.0 R30.9 Patient was started on antibiotic and advised to increase water intake. [id number] Ottoniel Hopkins MD [place] [address] 1 06/17/2023 14:03:54 06/17/2023 14:34:26 Dysuria 98612701 R30.0 Urinary tr act infectious disease 88949715 N39.0 Hyperlipidemia 45927475 E78.5 Pt declined for any statin. Obesity 012003917 E66.9 [id number] Ottoniel Hopkins MD [place] [address] 1 09/25/2023 15:22:55 09/25/2023 16:16:09 Hypertensive disorder 54447594 I10 Chronic ki dney disease stage 3 252701288 N18.30 Morbid obesity 838987699 E66.01 Hyperlipidemia 94478420 E78.5 History of calculus of kidney 817223115 Z87.442 Screening mammography 24 872834 Z12.31 Screening for osteoporosis 931610908 Z13.820 Screening for malignant neoplasm of colon 570646106 Z12.11 Dysuria 61839798 R30.0 [id number] Ottoniel Hopkins MD [facility] [address] 1 10/14/2023 14:59:54 10/14/2023 16:30:23 Adult health examination 507754942 Z00.00 Screening for disorder 152235386 Z13.9 Hypertensive disorder 38 951793 I10 Chronic ki dney disease stage 3 521976671 N18.30 Morbid obesity 013834560 E66.01 Hyperlipidemia 43181939 E78.5 History of calculus of kidney 542840994 Z87.442 Prediabetes 501595930 R7 3.03 [id number] Ottoniel Hopkins MD [address] [address] 1 12/16/2023 09:40:48 12/16/2023 10:17:58 Hypertensive disorder 55027453 I10 Chronic ki dney disease stage 3 793585667 N18.30 Morbid obesity 837304705 E66.01 History of calculus of kidney 390348896 Z87.442 Prediabetes 209425995 R7 3.03 [id number] Ottoniel Hopkins MD [address] [address]763-193 1 02/16/2024 09:05:33 02/16/2024 09:35:45 Chronic kidney disease stage 3 888671862 N18.30 Improved Hypertensive disorder 38 132840 I10 Diet controlled Prediabetes 838626329 R7 3.03 Morbid obesity 615173660 E66.01 History of calculus of kidney 020199746 Z87.142 [id number] Ottoniel Hopkins MD [address] [address]327-989 1 05/17/2024 09:33:21 05/17/2024 10:07:45 Prediabetes 849915770 R73.03 Chronic ki dney disease stage 3 259879008 N18.30 Improved Hypertensive disorder 38 262033 I10 Diet controlled Morbid obesity 540614156 E66.01 History of calculus of kidney 194203481 Z87.147 [id number] Ottoniel Hopkins MD [address] [address]73[address] 1 06/10/2024 15:02:36 06/10/2024 15:50:09 Dysuria 36448319 R30.0 Urge incon tinence of urine 53378979 N39.41 Overactive urinary bladder 412442514 N32.81 [id number] Alexey Levine MD [facility] [place] [address] [facility] [address] [place] [address] 06/23/2024 11:05:41 06/23/2024 12:12:24 Herniation of rectum into vagina 476361356 N81.6 Rash of groin 6726464588 0269353 R21 [id number] Ottoniel Hopkins MD [address] [address]332 1 09/02/2024 09:57:23 09/02/2024 10:31:48 Hypertensive disorder 02074953 I10 Chronic ki dney disease stage 3 373717790 N18.30 Improved Thrombocyt openic disorder 967913950 D69.6 Cardiac arrhythmia 17592 7007 I49.9 [id number] Ottoniel Hopkins MD [address] [address]85-925 1 10/04/2024 09:50:12 10/04/2024 10:31:58 Prediabetes 588226546 R73.03 Chronic ki dney disease stage 3 894969263 N18.30 Improved Hypertensive disorder 38 181603 I10 Morbid obesity 649834523 E66.01 History of calculus of kidney 218766351 Z87.442 Screening mammography 24 692269 Z12.31 [id number] Ottoniel Hopkins MD [address] [address]51[address] 1 10/19/2024 12:02:59 10/19/2024 12:42:16 Hypertensive disorder 08375300 I10 Chronic ki dney disease stage 3 568751591 N18.30 Improved Prediabetes 213171547 R7 3.03 Morbid obesity 248693832 E66.01 History of calculus of kidney 117490586 Z87.442 Mixed hyperlipidemia 267 349399 E78.2 Hypertriglyceridemia 302 822770 E78.1 Health Concerns Section Related Observation LastModified by Organization Detai ls LastModified Time None Recorded Concern Status LastModified by Organization Details LastModified Time None Recorded Advance Directives Directive Y: Payers Insurance Date Sequence Insurance Name Policy Number Policy Silver Covered Member ID Silver Member ID Guarantor Name 10/19/2024 1 [employer] (MEDICARE REPLACEMENT/A DVANTAGE - HMO) [id number] Cathy Torres [id number] Cathy Torres Notes Date Note Type Note Provider Name and Address Organization Details Recorded Time 06/10/2024 text/html ACV: C/o urinary leakage with some activities and pressure sensations over her lower bladder area for last few weeks. Denies any blood in urine, no fever/chills/n/v/ c/d. Ottoniel Hopkins MD [address] [facility], [facility] [address], [place], [address], [employer] 06/10/2024 15:56:07 06/23/2024 text/html this patient has [...] not a diabetic. Alexey Levine MD [address] [facility], [facility] [address], [place], [address], [email or web address] 06/23/2024 13:06:35 09/02/2024 text/html ACV: Pt called us 2 days ago with low BP readings and has some questions about it. Pt has been checking her BP at home and for last 2.5 months, it was in good range, but for last 3 days, its was on lower side. Pt denies any chest pain/sob/palpitat ions/sweating/diz ziness/syncope. Pt has cut down her BP meds for last 2 days and her BP is still in normal range. Pt sees Cardio and Nephro too. Ottoniel Hopkins MD [address], [place], [address], [employer] [facility] [employer] 09/02/2024 10:38:27 10/04/2024 text/html Pt is here for her annual exam. Doing overall well. Denies any problem with meds. Denies any new concern. Pt is checking her BP at home and its good now. Pt is f/u with Nephro at [facility] for her CKD. Pt has h/o kidney stone and is f/u with Uro for it. Pt is seeing Cardio at [facility] and they did testing for her and nothing concerning. Pt denies any chest pain/sob/palpitat ions/sweating episodes. Ottoniel Hopkins MD [address], [place], [address], [employer] [facility] [employer] 10/04/2024 10:30:28 10/19/2024 text/html Pt is here for f/u on her annual labs. Doing overall well. Denies any problem with meds. Denies any new concern. Pt is checking her BP at home and its good now. Pt is f/u with Dr. Squires for her low platelets and sees him every 6 months. Pt is f/u with Nephro at [facility] for her CKD. Pt has h/o kidney stone and is f/u with Uro for it. Pt is seeing Cardio at [facility] and they did testing for her and nothing concerning. Pt denies any chest pain/sob/palpitat ions/sweating episodes. Ottoniel Hopkins MD [address], [place], [address], [employer] [facility] [employer] 10/19/2024 12:41:25 OBGyn Episode No OBEpisode recorded.
--- OUTSIDE RECORDS SUMMARY | 2024-11-08 10:46 | XMS_ITS | Clinical Summary ---
Author Organization [facility] Aby portillo [facility] Address [address] [place] [address] Care Team Providers Care Salmon Troll Fisher Name Role Phone Ottoniel Hopkins MD Primary Care Provider [phone] Allergies Active Allergy Reactions Criticality Noted Date [...] Encounters Date Type Department Care Team Description 10/14/2024 External Device Data STL ABSTRACTION Provider, Abstract 10/13/2024 External Device Data STL ABSTRACTION Provider, Abstract 10/12/2024 External Device Data STL ABSTRACTION Provider, Abstract 08/11/2024 External Device Data STL ABSTRACTION Provider, Abstract [...] on file Legal Sex Female 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 Gender Identity Not on file Sexual Orientation Not on file Last Filed Vital Signs Vital Sign Reading Time Taken Comments Blood Pressure 157/101 06/30/2024 3:34 PM DEPARTMENT SPECIALIST last couple weeks has gone up recently seen user interface engineer to figure out what the cause is Pulse 153 06/30/2024 3:34 PM DEPARTMENT SPECIALIST patient has a heart flutter and sees a user interface engineer Temperature 36.3 C (97.3 F) 06/30/2024 3:34 PM DEPARTMENT SPECIALIST Respiratory Rate 18 06/30/2024 3:34 PM DEPARTMENT SPECIALIST Oxygen Saturation 95% 10/29/2023 10: 10 AM CDT Inhaled Oxygen Concentration - - Weight 118.4 kg (261 lb) 06/30/2024 3:3 4 PM DEPARTMENT SPECIALIST Height 157.5 cm (5' 2) 03/05/2022 8:51 AM CDT Body Mass Index 47.74 03/05/2022 8:51 AM CDT Plan of Treatment Upcoming Encounters Date Type Department Care Team (Late st Contact Info) Description 12/29/2024 11:45 AM CDT Office Visit [facility] Oncology and Hematology [facility] [address] [facility] [address] [place] [address] Dominic Squires MD [address] [facility] [address] [place] [address] Health Maintenance Due Date Last Done Comments BREAST CANCER SCREENING 1991 COLORECTAL SCREENING 1996 Colorectal Cancer Screening 1996 FIT-DNA Q 3 years 1996 FIT/FOBT Q 1 year 1996 Flex Sig/CT Colonography Q 5 years 1996 RSV VACCINE (60+ or ) (1 - Risk 60-74 years 1-dose series) 2011 OSTEOPOROSIS SCREENING 2016 PNEUMOCOCCAL VACCINE 50+ YEA RS (2 of 2 - PPSV23) 11/07/2018 11/07/2017 INFLUENZA VACCINE (#1) 2023 3, 01/31/2022, 02/13/2021, Additional history exists COVID-19 Vaccine (6 - 2023-2 5 season) 2024 03/12/2022, 10/26/2021, 04/06/2021, Additional history exists DTAP/TDAP/TD VACCINES (2 - T d or Tdap) 11/06/2027 11/05/2017 ZOSTER VACCINE Completed 04/17/2018, 02/11/2018 Insurance [facility] [id number] RX [employer] RX Member Subscriber Plan / Payer (Ef fective 2022-Present) Name:Cathy Torres Relation to Subscriber:Self Name:KrystalhoneyCathy urrutia Payer ID:Not on file Group ID:[id number] Type:RX Medicare Part D Address: [address] [address] Care Teams Salmon Troll Fisher Relationship Specialty Start Date End Date Ottoniel Hopkins MD [address] [place] [address] SILVIA Parra [address] PCP - General Family Practice 10/29/23
--- OUTSIDE RECORDS SUMMARY | 2024-11-08 10:46 | XMS_ITS | Referral Summary ---
Author Organization [facility] Medical Office Building A Address [address] [place] [address] Care Team Providers Care Button Facing Machine Operator Name Role Phone Ottoniel Hopkins MD Primary Care Provider [phone] Encounters Date Type Department Care Team Description 10/11/2024 3:30 PM CDT Office Visit [facility] Cardiology [address] [place] [address] Rishabh Barrett MD Atypical atrial flutter (HCC) (Primary Dx) from Last 3 Months Allergies No known active allergies Medications losartan (COZAAR) 50 mg tablet Take 1 tablet (50 mg total) by mouth daily Active Farxiga 10 mg tablet Take 1 tablet (10 mg total) by mouth daily 02/20/2023 Active cholecalciferol (Vitamin D3) 2000 unit tablet every other day Active UNABLE TO FIND UQORA Activ e metoprolol XL (TOPROL-XL) 50 mg extended release tablet Take 1 tablet (50 mg total) by mouth daily 09/05/2024 Active Active Problems Problem Noted Date Diagnosed Date Atypical atrial flutter 06/28/2024 Tachycardia, unspecified 04/04/2023 Chronic ITP (idiopathic [...] form Will return in one week Immunizations Immunization Administration Dates Next Due Hep A, Adult [...] Paying Living Expenses Patient dec lined 09/04/2018 [facility] of Occupat ional Health - Occupational Stress [...] on file 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 Gender Identity Not on file Sexual Orientation Not on file Last Filed Vital Signs Vital Sign Reading Time Taken Comments Blood Pressure 116/70 10/11/2024 2:05 PM CDT Pulse 59 10/11/2024 2:05 PM CDT Temperature - - Respiratory Rate - - Oxygen Saturation 96% 10/11/2024 2:05 PM CDT Inhaled Oxygen Concentration - - Weight 118.4 kg (261 lb 1.6 oz) 10/11/2024 2:05 PM CDT Height 157.5 cm (5' 2) 10/11/2024 2:05 PM CDT Body Mass Index 47.76 10/11/2024 2:05 PM CDT Plan of Treatment Not on file Insurance [facility] HMO REF [facility] [facility] H[facility] REF [facility] MEDICARE ADVANTAGE Care Teams Button Facing Machine Operator Relationship Specialty Start Date End Date Ottoniel Hopkins MD [address] [address] PCP - General Family Medicine 10/21/23
--- OUTSIDE RECORDS SUMMARY | 2024-11-08 10:46 | XMS_ITS | Clinical Summary ---
Author Organization [facility] Medical Office Building A Address [address] [place] [address] Care Team Providers Care Sourcing Coordinator Name Role Phone Ottoniel Hopkins MD Primary Care Provider [phone] Allergies No known active allergies Medications losartan [...] Description 10/11/2024 3:30 PM CDT Office Visit [facility] Cardiology [address] [place] [address] Rishabh Barrett MD Atypical atrial flutter (HCC) (Primary Dx) from Last 3 Months Immunizations Immunization Administration Dates Next Due Hep A, Adult 05/29/2018,11/05/2017 Influenza, Trivalent, High D ose, Split, Preservative Free, Intramuscular 02/11/2018 Meningococcal MCV4P (Menactra) 11/05/2017 Pneumococcal Conjugate PCV 13 11/07/2017 Tdap 11/05/2017 Typhoid Inactivated 12/05/2017 ZOSTER Recombinant 04/17/2018,02/11/2018 Surgical History Surgery Date Site/Laterality Comments WISDOM TOOTH EXTRACTION Medical History Medical History Date Comments Tachycardia Obese Thrombocytopenic disorder Chronic kidney disease Edema Dizziness Skin cancer [...] Friends and Family Patient declined 09/04/2018 Attends [employer] Services Patient declined 08/24 Active Member of [...] Paying Living Expenses Patient dec lined 09/04/2018 [facility] of Occupat ional Health - Occupational Stress [...] on file 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 Gender Identity Not on file Sexual [...] 10/11/2024 2:05 PM CDT Plan of Treatment Health Maintenance Due Date Last Done Comments Colon Cancer Screening-Colonoscopy 1950 Depression Screening 1950 Fall Risk Assessment 1950 Hepatitis C Screening 1950 Osteoporosis Screening-Bone Density Scan 1950 Well Visit 65+ 2016 Pneumococcal vaccine 65+ (2 of 2 - PPSV23) 11/07/2018 11/07/2017 Breast Cancer Screening-Mammogram 05/07/2023 022 Covid-19 Vaccine (7 - 2023-2 5 season) 2024 02/25/2023, 03/12/2022, 10/26/2021, Additional history exists Influenza Vaccine (Season Ended) 2025 01/31/2022, 01/31/2022, 02/08/2021, Additional history exists DTaP/Tdap/Td Vaccine (3 - Td or Tdap) 06/05/2031 06/05/2021, 11/05/2017 Hepatitis B Screening Completed 07/28/1997 , 02/28/1997, 01/28/1997 Zoster Vaccine Completed 04/17/2018, 01/24, 04/08/2013 Insurance [facility] HMO REF [facility] HMO REF [employer] MEDICARE ADVANTAGE Care Teams Sourcing Coordinator Relationship Specialty Start Date End Date Ottoniel Hopkins MD [address] [address] PCP - General Family Medicine 10/21/23
[2024-11-08 11:58] LABS: Albumin Level 4.1 g/dL (3.5-5.1); Anion Gap 5 mmol/L (4-12); Blood Urea Nitrogen 14 mg/dL (7-17); Calcium 8.8 mg/dL (8.4-10.2); Carbon Dioxide 27 mmol/L (22-30); Chloride 106 mmol/L (98-107); Estimated Glomerular Filt Rate 53; Glucose 105 mg/dL (65-110); Phosphorus 2.5 mg/dL (2.5-4.5); Potassium 4.2 mmol/L (3.4-5.0); Sodium 138 mmol/L (137-145)
[2024-11-08 12:24] LABS: Creatinine Urine 277.1 mg/dL
[2024-11-08 12:29] LABS: Total Protein Urine Random < 5 mg/dL; Ur Ttl Prot Creatinine Ratio < 0.02 mg/mg (0-0.20)
== END 2024-11-08 10:00 | disposition home or self-care (01) ==
LOC: ANHLAB 10:00
PROVIDERS: PCP Family Medicine; Visit Provider Internal Medicine Nephrology
DX: I12.9 Hypertensive chronic kidney disease with stage 1 through stage 4 chronic kidney disease, or unspecified chronic kidney disease (principal); N18.2 Chronic kidney disease, stage 2 (mild)
CPT/HCPCS: 36415; 80069; 82570; 84156

== ENCOUNTER 2024-11-22 13:27 | Outpatient (CLI) | payer MEDICARE, SELFPAY ==
--- NOTE | ~2024-11-22 | MM_ITS ---
EXAMINATION: MM screening kimmy BI w heidi HISTORY: Screening mammogram TECHNIQUE: Craniocaudal and mediolateral oblique 3-D tomosynthesis images were obtained and synthetic 2-D images were generated. CAD analysis was submitted and interpreted. COMPARISON: No prior mammogram is available for comparison at this institution. BREAST PARENCHYMAL COMPOSITION:Not Dense. There are scattered areas of fibroglandular density. FINDINGS: Upper right breast asymmetry present. No parenchymal abnormality of the left breast. No patricia picious parenchymal calcifications. IMPRESSION: Upper right breast asymmetry. While this may be due to summation artifact, spot compression and true lateral views, and possibly ultrasound, recommended for further evaluation.. BI-RADS Category 0: Incomplete: Needs additional imaging evaluation. Reviewed, dictated and finalized at location . IMPRESSION: Upper right breast asymmetry. While this may be due to summation artifact, spot compression and true lateral views, and possibly ultrasound, recommended for f urther evaluation.. BI-RADS Category 0: Incomplete: Needs additional imaging evaluation.
== END 2024-11-22 13:28 | disposition home or self-care (01) ==
PROVIDERS: PCP Family Medicine; Visit Provider Family Medicine
DX: Z12.31 Encounter for screening mammogram for malignant neoplasm of breast (principal); R92.8 Other abnormal and inconclusive findings on diagnostic imaging of breast
CPT/HCPCS: 77063; 77067

== ENCOUNTER 2024-12-21 09:44 | Outpatient (CLI) | payer MEDICARE, SELFPAY ==
--- NOTE | ~2024-12-21 | MMUS_ITS ---
EXAMINATION: US breast RT limited, MM diagnostic kimmy RT w heidi HISTORY: Follow-up right breast asymmetry TECHNIQUE: Additional 3-D tomosynthesis images of the right breast were performed and synthetic 2-D i mages were generated. CAD analysis was submitted and interpreted. High resolution Limited right breas t ultrasound was performed. COMPARISON: Comparison to multiple prior studies sequentially, with oldest reviewed study dated 07/10. BREAST PARENCHYMAL COMPOSITION: Not dense: There are scattered areas of fibroglandular density. FINDINGS: MAMMOGRAPHIC FINDINGS: Right breast asymmetry is persistent, although not significantly changed from prior examinations allo wing for technique. No suspicious calcifications or discrete masses. ULTRASOUND: Limited right breast ultrasound: Normal heterogeneous echotexture without focal solid or cystic mass. IMPRESSION: 1. No evidence for malignancy in the right breast. 2. Routine yearly screening mammogram and regular clinical breast examination are recommended. BI-RADS Category 1: Negative Reviewed, dictated and finalized at location B. IMPRESSION: 1. No evidence for malignancy in the right breast. 2. Routine yearly screening mammogram and regular clinical breast examination a re recommended. BI-RADS Category 1: Negative
== END 2024-12-21 09:45 | disposition home or self-care (01) ==
LOC: MICIMG 09:45
PROVIDERS: PCP Family Medicine
DX: R92.8 Other abnormal and inconclusive findings on diagnostic imaging of breast (principal)
CPT/HCPCS: 76642; 77061; 77065; G0279

== ENCOUNTER 2024-12-21 11:30 | Outpatient (CLI) | payer MEDICARE, SELFPAY ==
--- OUTSIDE RECORDS SUMMARY | 2024-12-21 11:33 | XMS_ITS | Referral Summary ---
Author Organization [facility] Medical Office Building A Address [address] [place] [address] Care Team Providers Care Accountant Cost Name Role Phone Ottoniel Hopkins MD Primary Care Provider [phone] Encounters Date Type Department Care Team Description 10/11/2024 3:30 PM CDT Office Visit [facility] Medical [facility] Cardiology [address] [place] [address] Rishabh Barrett MD Atypical atrial [...] Friends and Family Patient declined 09/04/2018 Attends [employer] [facility] Patient declined 08/24 Active Member of [...] Paying Living Expenses Patient dec lined 09/04/2018 [facility] [place] of Occupat ional Health - Occupational Stress [...] on file 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
--- OUTSIDE RECORDS SUMMARY | 2024-12-21 11:33 | XMS_ITS | Clinical Summary ---
Author Organization [facility] Medical Office Building A Address [address] [place] [address] Care Team Providers Care Panel Machine Setter Name Role Phone Ottoniel Hopkins MD Primary Care Provider Allergies No known active allergies Medications losartan [...] Description 10/11/2024 3:30 PM CDT Office Visit [facility] Medical Group Cardiology [address] [place] [address] Rishabh Barrett MD Atypical atrial flutter (HCC) [...] Friends and Family Patient declined 09/04/2018 Attends [employer] Services Patient declined 08/24 Active Member of [...] Paying Living Expenses Patient dec lined 09/04/2018 [facility] - Occupational [...] on file 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 Gender Identity Not on file Sexual Orientation [...] 10/26/2021, Additional history exists Influenza Vaccine (#1) 2025 , 01/31/2022, 02/08/2021, Additional history exists DTaP/Tdap/Td Vaccine (3 - Td or Tdap) 06/05/2031 06/05/2021, 11/05/2017 Hepatitis B Screening Completed 07/28/1997 , 02/28/1997, 01/28/1997 Zoster Vaccine Completed 04/17/2018, 01/24, 04/08/2013 Insurance [facility] H[facility] REF [facility] H[facility] REF UHC MEDICARE ADVANTAGE Care Teams Panel Machine Setter Relationship Specialty Start Date End Date Ottoniel Hopkins MD [address] [address] PCP - General Family Medicine 10/21/23
--- OUTSIDE RECORDS SUMMARY | 2024-12-21 11:33 | XMS_ITS | Clinical Summary ---
Author Organization [facility] Aby portillo [facility] Address [address] [place] [address] Care Team Providers Care Hi Teacher Name Role Phone Ottoniel Hopkins MD Primary Care Provider [phone] Allergies Active Allergy Reactions Criticality Noted Date [...] Encounters Date Type Department Care Team Description 12/08/2024 External Device Data [facility] ABSTRACTION Provider, Abstract 12/07/2024 External Device Data [facility] ABSTRACTION Provider, Abstract 11/16/2024 External Device Data [facility] ABSTRACTION Provider, Abstract 11/09/2024 External Device Data [facility]STRACTION Provider, Abstract 10/14/2024 External Device Data [facility] ABSTRACTION Provider, [...] on file 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 Gender Identity Not on file Sexual Orientation Not on file Last Filed Vital Signs Vital Sign Reading Time Taken Comments Blood Pressure 157/101 06/30/2024 3:34 PM BRAILLE DUPLICATING MACHINE OPERATOR last couple weeks has gone up recently seen garage laborer to figure out what the cause is Pulse 153 06/30/2024 3:34 PM BRAILLE DUPLICATING MACHINE OPERATOR patient has a heart flutter and sees a garage laborer Temperature 36.3 C (97.3 F) 06/30/2024 3:34 PM BRAILLE DUPLICATING MACHINE OPERATOR Respiratory Rate 18 06/30/2024 3:34 PM BRAILLE DUPLICATING MACHINE OPERATOR Oxygen Saturation 95% 10/29/2023 10: 10 AM CDT Inhaled Oxygen Concentration - - Weight 118.4 kg (261 lb) 06/30/2024 3:3 4 PM BRAILLE DUPLICATING MACHINE OPERATOR Height 157.5 cm (5' 2) 03/05/2022 8:51 AM CDT Body Mass Index 47.74 03/05/2022 8:51 AM CDT Plan of Treatment Upcoming Encounters Date Type Department Care Team (Late st Contact Info) Description 12/29/2024 11:45 AM CDT [facility] [address] [facility] [address] [place] [address] Dominic Squires MD [address] [facility] [address] [place] [address] Health Maintenance Due Date Last Done Comments BREAST CANCER SCREENING 1991 COLORECTAL SCREENING 1996 Colorectal Cancer Screening 1996 FIT-DNA Q 3 years 1996 FIT/FOBT Q 1 year 1996 Flex Sig/CT Colonography Q 5 years 1996 RSV VACCINE (60+ or ) (1 - Risk 60-74 years 1-dose series) 2011 OSTEOPOROSIS SCREENING 2016 PNEUMOCOCCAL VACCINE 50+ YEA RS (2 of 2 - PCV20 or PCV21) 11/07/2018 11/07/2017 COVID-19 Vaccine (2023-2 5 season) 2024 03/12/2022, 10/26/2021, 04/06/2021, Additional history exists Medicare Ad[place]age ([place]) Preventative Visit/Annual Wellness Visit 05/26/2024 10/14/2023 INFLUENZA VACCINE (#1) 2024 3, 01/31/2022, 02/13/2021, Additional history exists DTAP/TDAP/TD VACCINES (2 - T d or Tdap) 11/06/2027 11/05/2017 ZOSTER VACCINE Completed 04/17/2018, 02/11/2018 Insurance [facility] [id number] RX [employer] RX Member Subscriber Plan / Payer (Ef fective 2022-Present) Name:Cathy Torres Relation to Subscriber:Self Name:Cathy Torres Payer ID:Not on file Group ID:[id number] Type:RX Medicare Part D Address: [address] [address] Care Teams Hi Teacher Relationship Specialty Start Date End Date Ottoniel Hopkins MD [address] [place] [phone] PCP - General Family Practice 10/29/23
[2024-12-21 11:44] LABS: Hematocrit 47.7 % (37.0-47.0); Hemoglobin 15.2 g/dL (12.0-15.0); Immature Granulocyte Percent A 0.1 % (0-0.5); Immature Platelet Fraction Pct 14.6 % (0.9-11.2); Lymphocytes Absolute Auto 1.83 K/mm3 (0.9-3.2); Mean Corpuscular HGB Conc 31.9 g/dl (32-36); Mean Corpuscular Hemoglobin 28.3 pg (26-34); Mean Corpuscular Volume 88.7 fl (80-100); Nucleated Red Blood Cells Absolute Auto 0.000 K/mm3 (0.0-0.012); Nucleated Red Blood Cells Perc 0.0 % (0.0-0.2); Platelet Count Result 41 k/mm3 (150-375); Red Blood Count 5.38 M/mm3 (4.2-5.4); White Blood Count 9.7 K/mm3 (4.5-10.0)
[2024-12-21 12:20] LABS: Anion Gap 6 mmol/L (4-12); Blood Urea Nitrogen 16 mg/dL (7-17); Calcium 9.5 mg/dL (8.4-10.2); Carbon Dioxide 26 mmol/L (22-30); Chloride 105 mmol/L (98-107); Estimated Glomerular Filt Rate 49; Glucose 105 mg/dL (65-110); Potassium 4.9 mmol/L (3.4-5.0); Sodium 137 mmol/L (137-145)
== END 2024-12-21 11:31 | disposition home or self-care (01) ==
LOC: ANHLAB 11:31
PROVIDERS: PCP Family Medicine; Visit Provider Internal Medicine Hematology & Oncology
DX: D69.3 Immune thrombocytopenic purpura (principal)
CPT/HCPCS: 36415; 80048; 85025; 85055

== ENCOUNTER 2025-01-13 13:29 | Outpatient (CLI) | payer MEDICARE, SELFPAY ==
--- OUTSIDE RECORDS SUMMARY | 2025-01-13 13:43 | XMS_ITS | Clinical Summary ---
Author Organization [facility] Medical Office Building A Address [address] [place] [address] Care Team Providers Care Centrifugal Screen Tender Name Role Phone Ottoniel Hopkins MD Primary Care Provider [phone] Allergies No known active allergies Medications losartan [...] declined 09/04/2018 Social Connection and Isolation Panel Answer Date Recorded Frequency of Communication with Friends and Fami ly Patient declined 09/04/2018 Frequency of Social Gatherings with Friends and Family Patient declined 09/04/2018 Attends [employer] Patient declined 08/24 Active Member of [...] Paying Living Expenses Patient dec lined 09/04/2018 [facility] - Occupational [...] on file 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 Gender Identity Not on file Sexual [...] Pneumococcal vaccine 65+ (2 of 2 - PCV20 or PCV21) 11/07/2018 11/07/2017 Breast Cancer Screening-Mammogram 05/07/2023 022 Covid-19 Vaccine (2023-2 5 season) 2024 02/25/2023, 03/12/2022, 10/26/2021, Additional history exists Influenza Vaccine (#1) 2025 2, 01/31/2022, 02/08/2021, Additional history exists DTaP/Tdap/Td Vaccine (3 - Td or Tdap) 06/05/2031 06/05/2021, 11/05/2017 Hepatitis B Screening Completed 07/28/1997 , 02/28/1997, 01/28/1997 Zoster Vaccine Completed 04/17/2018, 01/24, 04/08/[address] [place] [address] [facility] HMO REF [facility]ICAL [facility] MEDICARE Address: [address] [address] [place] [address] [place] [address] [facility] HMO REF [facility]ICAL [facility] MEDICARE Address: [address] [address] [place] [address] [facility] MEDICARE ADVANTAGE [facility]ICAL [facility] MEDICARE Address[facility] [id number] [place] [phone] Care Teams Centrifugal Screen Tender Relationship Specialty Start Date End Date Ottoniel Hopkins MD [address] [address] PCP - General Family Medicine 10/21/23
--- OUTSIDE RECORDS SUMMARY | 2025-01-13 13:43 | XMS_ITS | Encounter Summary ---
Author Organization [facility] Address [address] [place] [address] Care Team Providers Care It Security Consulting Director Name Role Phone Ottoniel Hopkins MD Primary Care Provider Encounter Details Date Type Department Care Team (Late st Contact Info) Description 01/12/2025 External Device Data [facility]CTION Provider, Abstract NO ADDRESS ON FILE Social History Tobacco Use Types Packs/Day Years Used Date Smoking Tobacco: Never Smokeless Tobacco: Never Alcohol Use Standard Drinks/Week Comments Yes 0 (1 standard drink = 0.6 oz pur e alcohol) Comments Unknown Sex and Gender Information Value Date Recorded Sex Assigned at Not on file 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 Gender Identity Not on file Sexual Orientation Not on file documented as of this encounter Plan of Treatment Upcoming Encounters Date Type Department Care Team (Late st Contact Info) Description 07/05/2025 10:15 AM PROBATION COUNSELOR Office Visit [facility] Oncology and Hematology - [place] [address] [place] [address] [facility] [address] [place] [address] Dominic Squires MD [address] [facility] [address] [place] [address] documented as of this encounter Visit Diagnoses Not on filedocumented in this encounter Care Teams It Security Consulting Director Relationship Specialty Start Date End Date Ottoniel Hopkins MD [address] [place] [address] [place] [phone] PCP - General Family Practice 10/29/23 documented as of this encounter
--- OUTSIDE RECORDS SUMMARY | 2025-01-13 13:43 | XMS_ITS | Clinical Summary ---
Author Organization [facility] Address [address] [place] [address] Care Team Providers Care Imaging System Administrator Name Role Phone Ottoniel Hopkins MD Primary Care Provider [phone] Allergies Active Allergy Reactions Criticality Noted Date Comments Sulfamethoxazole-Trimethoprim Constipation Low 12/2021 Medications losartan (COZAAR) 50 mg tablet Take 50 mg by mouth daily. Active dapagliflozin propanediol (Farxiga) 10 mg Tablet Take 5 mg by mouth daily. Active CALCIUM CARBONATE-VITAMI N D3 ORAL Take by mouth. One tablet every other day Active OTHER UQORA- take once every other day Active metoprolol succinate (TOPROL XL) 25 mg Extended Release 24 hour tablet Take 25 mg by mouth daily. 10/19/2024 Active Active Problems Problem Noted Date Diagnosed Date Acute idiopathic thrombocytopenic purpura 2021 Encounters Date Type Department Care Team Description 01/12/2025 External Device Data [facility] ABSTRACTION Provider, Abstract 12/29/2024 11:45 AM CDT Office Visit [facility] Oncology and Hematology - [place] [address] [place] [address] Dominic Squires MD Acute idiopathic thrombocytopenic purpura (CMS/HCC) (Primary Dx) 12/28/2024 External Device Data [facility] ABSTRACTION Provider, Abstract 12/22/2024 Orders Only [facility] Oncology and Hematology [place] [address] [place] [address] Dominic Squires MD 12/08/2024 External Device Data [facility] ABSTRACTION Provider, [...] on file 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 EDITOR Gender Identity Not on file Sexual Orientation Not on file Last Filed Vital Signs Vital Sign Reading Time Taken Comments Blood Pressure 128/89 12/29/2024 11:44 AM CDT Pulse 137 12/29/2024 11:44 AM CDT Temperature 35.9 C (96.7 F) 12/29/2024 11:44 AM CDT Respiratory Rate 16 12/29/2024 11:4 4 AM CDT Oxygen Saturation 94% 12/29/2024 11: 44 AM CDT Inhaled Oxygen Concentration - - Weight 115.8 kg (255 lb 6.4 oz) 025 11:44 AM CDT Height 157.5 cm (5' 2) 03/05/2022 8:51 AM CDT Body Mass Index 46.71 03/05/2022 8:51 AM CDT Plan of Treatment Upcoming Encounters Date Type Department Care Team (Late st Contact Info) Description 07/05/2025 10:15 AM BUSINESS EDITOR Office Visit [facility] Oncology and Hematology - [place] [address] [facility] [address] [place] [address] Dominic Squires MD [address] [facility] [address] [place] [address] Health Maintenance Due Date Last [...] PCV20 or PCV21) 11/07/2018 11/07/2017 COVID-19 Vaccine (6 2023-2 5 season) 2024 03/12/2022, 10/26/2021, 04/06/2021, Additional history exists INFLUENZA VACCINE (#1) 2024 3, 01/31/2022, 02/13/2021, Additional history exists DTAP/TDAP/TD VACCINES (2 - T d or Tdap) 11/06/2027 11/05/2017 ZOSTER VACCINE Completed 04/17/2018, 02/11/2018 Procedures Procedure Name Priority Date/Time Associated Diagnosis Comments BASIC METABOLIC PANEL Routine 12/21/2024 12:50 PM CDT from Last 3 Months Results * BASIC METABOLIC PANEL (12/21/2024 12:50 PM CDT) Blood us Dominic Squires MD CHEMISTRY ORDERABLES Final Resu lt from Last [address] [place] [address] [facility] [id number] RX [employer] RX Member Subscriber Plan / Payer (Ef fective 2022-Present) Name:Cathy Torres Relation to Subscriber:Self Name:Cathy Torres Payer ID:Not on file Group ID:[id number] Type:RX Medicare Part D Address: [address] Care Teams Imaging System Administrator Relationship Specialty Start Date End Date Ottoniel Hopkins MD [address] [place] [phone] PCP - General Family Practice 10/29/23
[2025-01-13 16:46] LABS: Cholesterol 263 mg/dL (0-200); HDL Direct 45 mg/dL; Triglycerides 178 mg/dL (<150)
[2025-01-13 17:47] LABS: Hemoglobin A1C 6.2 % (<5.7)
== END 2025-01-13 13:30 | disposition home or self-care (01) ==
LOC: ANHLAB 13:30
PROVIDERS: PCP Family Medicine; Visit Provider Family Medicine
DX: R73.03 Prediabetes (principal); E78.2 Mixed hyperlipidemia
CPT/HCPCS: 36415; 80061; 83036

== ENCOUNTER 2025-04-08 10:23 | Outpatient (CLI) | payer MEDICARE, SELFPAY ==
[2025-04-08 11:16] LABS: Cholesterol 214 mg/dL (0-200); HDL Direct 42 mg/dL; Triglycerides 192 mg/dL (<150)
[2025-04-08 11:23] LABS: Hemoglobin A1C 6.2 % (<5.7)
== END 2025-04-08 10:24 | disposition home or self-care (01) ==
PROVIDERS: PCP Family Medicine; Visit Provider Family Medicine
DX: E78.2 Mixed hyperlipidemia (principal); R73.03 Prediabetes
CPT/HCPCS: 36415; 80061; 83036

== ENCOUNTER 2025-05-06 09:49 | Outpatient (CLI) | payer MEDICARE, SELFPAY ==
[2025-05-06 10:47] LABS: Total Protein Urine Random < 5 mg/dL; Ur Ttl Prot Creatinine Ratio < 0.02 mg/mg (0-0.20)
[2025-05-06 10:55] LABS: Albumin Level 4.4 g/dL (3.5-5.1); Anion Gap 4 mmol/L (4-12); Blood Urea Nitrogen 19 mg/dL (7-17); Calcium 9.3 mg/dL (8.4-10.2); Carbon Dioxide 27 mmol/L (22-30); Chloride 106 mmol/L (98-107); Estimated Glomerular Filt Rate 51; Glucose 108 mg/dL (65-110); Potassium 4.6 mmol/L (3.4-5.0); Sodium 137 mmol/L (137-145)
[2025-05-06 11:12] LABS: Parathyroid Intact 48.7 pg/mL (14.5-75.2)
== END 2025-05-06 09:50 | disposition home or self-care (01) ==
PROVIDERS: PCP Family Medicine; Visit Provider Internal Medicine Nephrology
DX: N18.31 Chronic kidney disease, stage 3a (principal); I12.9 Hypertensive chronic kidney disease with stage 1 through stage 4 chronic kidney disease, or unspecified chronic kidney disease; N25.81 Secondary hyperparathyroidism of renal origin; E55.9 Vitamin D deficiency, unspecified
CPT/HCPCS: 36415; 80069; 82306; 82570; 83970; 84156